=== PATIENT | male | born 1945 | race Caucasian/White ===

== ENCOUNTER 2019-09-17 14:02 | Emergency (ER) | payer MEDICARE, SELFPAY ==
[2019-09-17 14:08] VITALS: BP 153/75; PULSE 74; RESP 14; TEMP 36.4; O2SAT 95; BMI 25.0
--- NOTE | 2019-09-17 17:41 | W.ED.WOUNDLC ---
HPI - Wound/Laceration General: Chief Complaint: Wound/Laceration Stated Complaint: finger lac Time Seen by Provider: 09/17/19 17:08 History of Present Illness: HPI narrative: Patient reports easy using a cutting disc on a lens edge grinder machine and sustained a laceration to the dorsal aspect of his right hand overlying the MCP joint Onset (ago): minute(s) Location: other Extremity Location: Right: hand Place: home Patient tetanus UTD: No Context: accidental Associated symptoms: Reports no associated symptoms Treatments prior to arrival: bandage Review of Systems General: Reports: 10 or more systems reviewed and unremarkable except in HPI and below PFSH ED PFSH: Medical History Atrial fibrillation CHF (congestive heart failure) Family History Father Hypertension Social History Smoking and tobacco status: former smoker Physical Exam Const: COMMON NORMALS: no acute distress, patient oriented x3, no limitations and alert HENMT: COMMON NORMALS: normocephalic, atraumatic, external ears normal and Normal external nose present HEAD & SCALP: normocephalic and atraumatic FACE & SINUS: normal facial exam NOSE: Normal external nose present EXTERNAL EAR: Yes external ears normal MOUTH: Normal oral and palatal mucosa present Neck/C-Spine: COMMON NORMALS: full ROM, no lymphadenopathy, supple, no meningeal signs and no JVD GENERAL: Yes normal visual inspection Resp: COMMON NORMALS: normal respiratory effort, No retractions, No use of accessory muscles and clear to auscultation bilaterally AUSCULTATION: clear to auscultation bilaterally Cardio: COMMON NORMALS: no JVD, regular rate and regular rhythm RATE: regular rate RHYTHM: regular rhythm GI: COMMON NORMALS: Normal to inspection, nondistended, normoactive bowel sounds present, Soft to palpation, non-tender, No hepatosplenomegaly present and no masses INSPECTION: Yes normal to inspection AUSCULTATION: Yes normoactive bowel sounds PALPATION: Yes Soft to palpation and Yes No hepatosplenomegaly present PERCUSSION: normal to percussion : COMMON NORMALS: Yes no CVA tenderness BLADDER/KIDNEY EXAM: Yes no CVA tenderness Back/Pelvis: COMMON NORMALS: no CVA tenderness, thoracic and lumbar spine normal to inspection, no thoracic nor lumbar tenderness, thoraco-lumbar ROM normal and straight leg raise negative bilaterally Extremity: COMMON NORMALS: normal to inspection, full ROM, capillary refill normal, no joint enlargement, no clubbing, cyanosis or edema, no calf tenderness and no pedal edema Neuro: COMMON NORMALS: patient oriented x3, moves all extremities, no focal motor deficits and no sensory deficits noted SENSORIUM/ORIENTATION: Yes alert MENINGEAL SIGNS: Yes no meningeal signs Psych: COMMON NORMALS: mental status grossly normal, Normal thought process present, cooperative, normal affect and speech normal SPEECH: Yes normal speech THOUGHT PROCESS: Normal thought process present Skin: COMMON NORMALS: turgor normal, no jaundice, no petechiae and no mottling GENERAL SKIN EXAM: turgor normal TRAUMA: laceration (2.25 cm laceration overlying the MCP of the index finger of the right hand) Procedures Laceration Laceration 1: Site: hand Side (If applicable): right Size (cm): 2.25 Description: linear Depth: involves muscle layer and involves tendon Local Anesthetic: lidocaine 1% Pre-repair: wound explored and irrigated extensively Skin layer closed with: nylon Size (cm): 4-0 Number of sutures: 6 Technique: simple, interrupted Course Vital Signs: Vital signs: Vital Signs Temperature 97.6 F 09/17/19 14:08 Pulse Rate 74 09/17/19 14:08 Respiratory Rate 14 09/17/19 14:08 Blood Pressure 153/75 09/17/19 14:08 Pulse Oximetry 95 09/17/19 14:08 Discharge Plan Discharge Patient Disposition: Home Clinical Impression: Laceration of hand Qualifiers: Encounter type: initial encounter Foreign body presence: without foreign body Laterality: right Qualified Code(s): S61.411A - Laceration without foreign body of right hand, initial encounter Condition: Stable Prescriptions: New Keflex 250 mg capsule 250 mg PO QID 10 Days Qty: 40 RF: 0 hydrocodone-acetaminophen 5-325 mg tablet 1 tab PO Q4H PRN (Reason: pain) Qty: 15 RF: 0 No Action garlic 1,500 mg capsule 1,500 mg PO DAILY RF: 0 multivitamin Tablet 1 tab PO DAILY RF: 0 hawthorn 500 mg capsule PO RF: 0 cannabidiol 100 mg/mL solution PO PRNRF: 0 ascorbic acid (vitamin C) 500 mg capsule PO RF: 0 cholecalciferol (vitamin D3) 50 mcg (2,000 unit) capsule 2,000 unit PO DAILY RF: 0 hydrochlorothiazide 12.5 mg tablet 12.5 mg PO DAILY Qty: 30 RF: 3 diltiazem HCl 180 mg capsule,extended release 24hr 180 mg PO DAILY Qty: 90 RF: 3 digoxin 125 mcg (0.125 mg) tablet 125 mcg PO DAILY Qty: 90 RF: 3 Discharge Orders: Discharge Order (Routine); Ordered 09/17/19 Ordered By: Iraj Craven Referrals: Magaly Agee FNP [Primary Care Provider] - Patient Instructions: Laceration (ED), Finger Laceration (ED) Coding Level of Care Code ED 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
== END 2019-09-17 18:32 | disposition home or self-care (01) ==
PROVIDERS: Emergency Provider Family Medicine; PCP Nurse Practitioner
DX: S61.210A Laceration without foreign body of right index finger without damage to nail, initial encounter (principal); W26.8XXA Contact with other sharp object(s), not elsewhere classified, initial encounter; I48.91 Unspecified atrial fibrillation; I50.9 Heart failure, unspecified; Z87.891 Personal history of nicotine dependence
CPT/HCPCS: 12001; 12345; 99281; 99282

== ENCOUNTER 2019-11-02 12:24 | Outpatient (CLI) | payer MEDICARE, SELFPAY ==
--- NOTE | 2019-11-02 12:45 | USCV_ITS ---
Bud Corona Age: 74 Gender: M : 1945 Exam Date: 11/02/2019 13:03 Ordering Phys: Eden Costa MD ([email or web address]) Technologist: Edison Mercado Exam Location: [facility] – [place] Indication: AFIB/SOB BP: 130 / 75 HR: 68 Rhythm: Sinus Technical Quality: Adequate MEASUREMENTS (Male / Female) Normal Values 2D ECHO LV Diastolic Diameter PLAX 5.9 cm 4.2 - 5.9 / 3.9 - 5.3 cm LV Systolic Diameter PLAX 4.4 cm IVS Diastolic Thickness 0.8 cm 0.6 - 1.0 / 0.6 - 0.9 cm IVS Systolic Thickness 1.5 cm LVPW Diastolic Thickness 1.0 cm 0.6 - 1.0 / 0.6 - 0.9 cm LVPW Systolic Thickness 1.6 cm LVOT Diameter 2.1 cm LV Ejection Fraction 2D Teich 49.5 % LV Ejection Fraction MOD 2C 61.5 % LV Ejection Fraction 2C AL 60.7 % LA Diameter 4.0 cm LA Width 4.3 cm LA Height 6.1 cm RA Width 3.7 cm RA Height 5.9 cm Aorta at Sinotubular Diameter 1.1 cm M-MODE LV Diastolic Diameter MM 5.8 cm 4.2 - 5.9 / 3.9 - 5.3 cm LV Systolic Diameter MM 6.1 cm LV Ejection Fraction MM Teich -14.0 % IVS Diastolic Thickness MM 1.2 cm 0.6 - 1.0 / 0.6 - 0.9 cm IVS Systolic Thickness MM 0.9 cm LVPW Diastolic Thickness MM 1.3 cm 0.6 - 1.0 / 0.6 - 0.9 cm LVPW Systolic Thickness MM 1.3 cm RV Diastolic Diameter MM 1.6 cm Aortic Annulus Diameter 3.6 cm LA Ao Ratio MM 1.1 MV E Point Septal Separation 1.3 cm DOPPLER AV Peak Velocity 183.0 cm/s MV Area PHT 5.0 cm squared Mitral E to A Ratio 3.6 MV E' Velocity 9.0 cm/s Mitral E to MV E' Ratio 13.9 Mitral E to LV E' Lateral Ratio 11.3 Mitral E to LV E' Septal Ratio 17.9 TR Peak Velocity 274.0 cm/s TR Peak Gradient 30.0 mmHg TV Peak E Velocity 102.0 cm/s Right Atrial Pressure 3.0 mmHg Pulmonary Artery Systolic Pressu 33.0 mmHg PV Peak Velocity 66.0 cm/s FINDINGS Left Ventricle Moderately increased left ventricular cavity size. Moderately decreased left ventricular systolic function. Left ventricular ejection fraction is estimated at 40 %. Global left ventricular hypokinesis. Due to atrial fibrillation diastolic function cannot be assessed accurately. Right Ventricle The right ventricle is normal in size and function. Right Atrium The right atrium is normal in size. Left Atrium Moderately increased left atrial size. Mitral Valve Moderately thickened mitral valve. No mitral valve stenosis. Moderate mitral valve regurgitation. Aortic Valve Moderate aortic valve calcification. No aortic valve stenosis. Moderate to severe aortic valve regurgitation. Tricuspid Valve Structurally normal tricuspid valve without significant stenosis or regurgitation. Pulmonary artery systolic pressure is normal. Pulmonic Valve Trace pulmonary valve regurgitation. Pericardium Normal pericardium without effusion. Aorta Normal ascending aorta dimension. CONCLUSIONS 1-Moderately increased left ventricular cavity size. Moderately decreased left ventricular systolic function. Left ventricular ejection fraction is estimated at 40 %. Global left ventricular hypokinesis. Due to atrial fibrillation diastolic function cannot be assessed accurately. 2-Moderately increased left atrial size. 3-Moderately thickened mitral valve. No mitral valve stenosis. Moderate mitral valve regurgitation. 4-Moderate aortic valve calcification. No aortic valve stenosis. Moderate to severe aortic valve regurgitation. 5-There is no pericardial effusion. 6-Right atrial pressure is around 5 mm of mercury. 7-There are no prior echocardiogram studies to compare. Eden Costa MD (Electronically Signed) Final Date: 02 November 2019 18:47 S
== END 2019-11-02 12:25 | disposition home or self-care (01) ==
LOC: US 12:30
PROVIDERS: PCP Nurse Practitioner; Visit Provider Internal Medicine Cardiovascular Disease
DX: I48.11 Longstanding persistent atrial fibrillation (principal); R06.02 Shortness of breath; I08.0 Rheumatic disorders of both mitral and aortic valves
CPT/HCPCS: 93306

== ENCOUNTER 2020-07-18 16:36 | Inpatient (IN) | payer MEDICARE, SELFPAY ==
--- NOTE | 2020-07-18 16:42 | XRR_ITS ---
PROCEDURE INFORMATION: Exam: XR Chest Exam date and time: 07/18/2020 4:50 PM Age: 75 years old Clinical indication: Condition or disease; Other: High blood pressure; Additional info: SOB TECHNIQUE: Imaging protocol: XR of the chest. Views: 1 view. COMPARISON: CR Chest 1 [place] [id number] 05/15/2015 5:02 PM FINDINGS: Lungs: Single calcified pulmonary granuloma is present, consistent with prior granulomatous disease. Pleural spaces: Unremarkable. No pleural effusion. No pneumothorax. Heart/Mediastinum: There is mild cardiomegaly. Bones/joints: Unremarkable. XR/XR chest 1V portable [id number] IMPRESSION: Mild cardiomegaly.
--- NOTE | 2020-07-18 16:43 | ECG_ITS ---
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 Measurements Intervals [place] Rate: 68 P: NE: QRS: -50 QRSD: 116 T: 108 QT: 350 QTc: 374 Interpretive Statements ATRIAL FIBRILLATION INCOMPLETE RIGHT BUNDLE BRANCH BLOCK LEFT ANTERIOR FASCICULAR BLOCK [QRS AXIS <= -45, QR IN I, RS IN II] MODERATE VOLTAGE CRITERIA FOR LVH, CONSIDER NORMAL VARIANT POSSIBLE SEPTAL MYOCARDIAL INFARCTION , PROBABLY OLD Compared to ECG 05/15/2015 17:00:47 Incomplete right bundle-branch block now present Myocardial infarct finding now present Right ventricular hypertrophy no longer present ST (T wave) deviation no longer present Electronically Signed On 07-18-2020 18:28:47 CDT by Sabrina Graves M.D. [id number]
[2020-07-18 16:54] VITALS: BP 173/64; PULSE 72; RESP 18; TEMP 36.3; O2SAT 95; BMI 26.6
--- NOTE | 2020-07-18 16:58 | CTR_ITS ---
PROCEDURE INFORMATION: Exam: CT Head Without Contrast Exam date and time: 07/18/2020 5:07 PM Age: 75 years old Clinical indication: Other: Headache; Additional info: PEREZ TECHNIQUE: Imaging protocol: Computed tomography of the head without contrast. Radiation optimization: All CT scans at this facility use at least one of these dose optimization techniques: automated exposure control; mA and/or kV adjustment per patient size (includes targeted exams where dose is matched to clinical indication); or iterative reconstruction. Other technique: STROKE PROTOCOL was implemented. COMPARISON: MR head wo con* [id number] 08/30/2018 10:57 AM RADIATION DOSE METRICS: Total DLP (mGy-cm): 937.21 FINDINGS: Brain: There is mild parenchymal atrophy and chronic small vessel disease. No acute infarct or hemorrhage. Cerebral ventricles: No ventriculomegaly. Paranasal sinuses: Paranasal sinuses are clear. No air-fluid level. Mastoid air cells: Visualized mastoid air cells are clear. Bones/joints: Unremarkable. No acute fracture. Soft tissues: Unremarkable. CT/CT head wo con* [id number] IMPRESSION: 1. No acute infarct or hemorrhage. 2. Mild parenchymal atrophy and chronic small vessel disease. ASSESSMENT: ASPECTS ([place] Stroke Program Early CT Score) is 10. Radiation Dose CTDIVOL = (mGy): DLP = 937.21 (mGy-cm)
[2020-07-18] MEDS: piperacillin-tazobactam 3.375 GM in sodium chloride 0.9% (plus) 50 ML IV (17:10)
--- NOTE | 2020-07-18 17:10 | W.ED.GENADLT ---
HPI - General Adult General: Chief complaint: General Medical Stated complaint: HTN Time Seen by Provider: 07/18/20 16:59 Source: patient Mode of arrival: ambulatory Limitations: no limitations History of Present Illness: HPI narrative: 75-year-old male states that he woke up this morning at 8 AM just not feeling very well. He states that starting around noon he had difficulty walking and has had an ataxic gait since then. States he has had generalized weakness as well. He denies any chest pain. Denies any fevers. He does have a history of A. fib but does not take any blood thinners. Denies any vomiting or diarrhea. Associated symptoms: Deny chest pain, dyspnea, headache(s), nausea, rash or vomiting Review of Systems Const: Denies: fever(s), chills, body aches or change in appetite Eyes: Denies: blurry vision or eye discomfort ENMT: Denies: throat pain or dental pain Card: Denies: chest pain Resp: Denies: dyspnea GI: Denies: abdominal pain, nausea, vomiting or diarrhea : Denies: dysuria Musc: Denies: neck pain or back pain Skin/Breast: Denies: rash Neuro: Reports: difficulty walking; Denies: headache(s) Psych: Denies: depression Deny/Lymph: Denies: easy bruising All/Imm: Denies: urticaria PFS ED PFSH: Medical History (Updated 07/18/20 @ 20:28 by Saira Padilla MD) Atrial fibrillation CHF (congestive heart failure) Surgical History (Updated 07/18/20 @ 19:29 by Eden Grady MD) H/O carotid endarterectomy 2009 S/P hernia repair S/P PTCA (percutaneous transluminal coronary angioplasty) Family History (Updated 07/18/20 @ 19:30 by Eden Grady MD) Father Hypertension CAD (coronary artery disease) Social History (Updated 07/18/20 @ 19:30 by Eden Grady MD) Smoking and tobacco status: former smoker Alcohol intake: never Substance/Drug Use: never Housing: House Physical Exam Const: COMMON NORMALS: no acute distress, patient oriented x3 and healthy appearing HENMT: COMMON NORMALS: normocephalic and atraumatic HEAD & SCALP: normocephalic and atraumatic Eye: COMMON NORMALS: Equal, round and reactive pupils present and EOMs intact bilaterally PUPIL: Yes Equal, round and reactive pupils present Neck/C-Spine: COMMON NORMALS: full ROM and supple Chest: COMMONS NORMALS: normal inspection of the chest and normal palpation of entire chest wall Resp: COMMON NORMALS: normal respiratory effort, No retractions, No use of accessory muscles and clear to auscultation bilaterally AUSCULTATION: clear to auscultation bilaterally Cardio: COMMON NORMALS: regular rate, regular rhythm and No murmurs present (Cardio) RATE: regular rate RHYTHM: regular rhythm GI: COMMON NORMALS: Normal to inspection, nondistended, normoactive bowel sounds present, Soft to palpation, non-tender and no masses PALPATION: Yes Soft to palpation Extremity: COMMON NORMALS: normal to inspection and full ROM Neuro: COMMON NORMALS: patient oriented x3 and moves all extremities GAIT: Yes Ataxic gait present and Yes Shuffling gait present Psych: COMMON NORMALS: mental status grossly normal, Normal thought process present and cooperative THOUGHT PROCESS: Normal thought process present Skin: COMMON NORMALS: no rashes or lesions noted and no wounds GENERAL SKIN EXAM: no rashes or lesions noted Course Vital Signs: Vital signs: Vital Signs Temperature 97.3 F L 07/18/20 16:54 Pulse Rate 81 07/18/20 19:34 Respiratory Rate 19 H 07/18/20 19:34 Blood Pressure 163/89 07/18/20 20:19 Pulse Oximetry 97 07/18/20 20:19 MDM - General Adult MDM Narrative: Medical decision making narrative: Patient presents here with ataxia and concern for possible posterior stroke. After speaking to his and him last known normal was around noon and patient is out of any treatment window for TPA. His head CT here is normal. He adamantly refuses to take any blood thinners besides aspirin. I spoke to hospitalist will admit. Lab Data: Labs: Lab Results 07/18/20 07/18/20 07/18/20 Range/Units 17:39 17:44 17:44 WBC 6.1 (4.0-10.0) 10^3/ uL RBC 5.54 H (4.1-5.3) 10^6/u L Hgb 16.1 (11.7-16.6) g/dL Hct 49.2 (42.0-52.0) % MCV 88.8 (80-94) fL MCH 29.1 (28.0-34.0) pg MCHC 32.7 (30.0-36.0) g/dL RDW 15.0 (12.1-15.1) % Plt Count 140 (130-400) 10^3/c mm MPV 12.6 H (7.4-10.4) fL Neut % (Auto) 82.2 % Lymph % (Auto) 9.2 % [place] % (Auto) 7.9 % Eos % (Auto) 0.2 % Baso % (Auto) 0.2 % Neut # (Auto) 4.98 (1.8-7.7) 10^3/u L Lymph # (Auto) 0.6 L (0.8-4.8) 10^3/u L [place] # (Auto) 0.5 (0.2-0.9) 10^3/u L Eos # (Auto) 0.0 (0.0-0.8) 10^3/u L Baso # (Auto) 0.0 (0.0-0.1) 10^3/u L Nucleated RBC % (a uto) 0 % Nucleated RBCs # 0.0 /100WBC PT (12.1-14.9) SECO NDS INR (0.8-1.2) Sodium 138 (136-145) mmol/L Potassium 4.0 (3.5-5.1) mmol/L Chloride 101 (98-107) mmol/L Carbon Dioxide 27 (22-29) mmol/L Anion Gap 14.0 (5-19) BUN 12 (8-23) mg/dL Creatinine 1.0 (0.7-1.2) mg/dL GFR Calculation Not Reportable Glucose 97 (65-115) mg/dL POC Glucose 102 (70-110) mg/dL Calculated Osmolal ity 286 (285-295) mOsm/k g Calcium 9.1 (8.5-10.5) mg/dL Total Bilirubin 0.9 (0.15-1.2) mg/dL AST 25 (0-40) U/L ALT 18 (0-41) U/L Alkaline Phosphata se 65 (40-130) IU/L Troponin T Baselin e (0-15) ng/L NT-Pro-B Natriuret Pep 824 H (0-450) pg/mL Total Protein 6.7 (6.6-8.7) g/dL Albumin 4.3 (3.5-5.2) g/dL Globulin 2.4 (1.3-4.6) g/dL 07/18/20 07/18/20 Range/Units 17:44 18:40 WBC (4.0-10.0) 10^3/ uL RBC (4.1-5.3) 10^6/u L Hgb (11.7-16.6) g/dL Hct (42.0-52.0) % MCV (80-94) fL MCH (28.0-34.0) pg MCHC (30.0-36.0) g/dL RDW (12.1-15.1) % Plt Count (130-400) 10^3/c mm MPV (7.4-10.4) fL Neut % (Auto) % Lymph % (Auto) % [place] % (Auto) % Eos % (Auto) % Baso % (Auto) % Neut # (Auto) (1.8-7.7) 10^3/u L Lymph # (Auto) (0.8-4.8) 10^3/u L [place] # (Auto) (0.2-0.9) 10^3/u L Eos # (Auto) (0.0-0.8) 10^3/u L Baso # (Auto) (0.0-0.1) 10^3/u L Nucleated RBC % (a uto) % Nucleated RBCs # /100WBC PT 14.90 (12.1-14.9) SECO NDS INR 1.14 (0.8-1.2) Sodium (136-145) mmol/L Potassium (3.5-5.1) mmol/L Chloride (98-107) mmol/L Carbon Dioxide (22-29) mmol/L Anion Gap (5-19) BUN (8-23) mg/dL Creatinine (0.7-1.2) mg/dL GFR Calculation Glucose (65-115) mg/dL POC Glucose (70-110) mg/dL Calculated Osmolal ity (285-295) mOsm/k g Calcium (8.5-10.5) mg/dL Total Bilirubin (0.15-1.2) mg/dL AST (0-40) U/L ALT (0-41) U/L Alkaline Phosphata se (40-130) IU/L Troponin T Baselin e 17 H (0-15) ng/L NT-Pro-B Natriuret Pep (0-450) pg/mL Total Protein (6.6-8.7) g/dL Albumin (3.5-5.2) g/dL Globulin (1.3-4.6) g/dL EKG Data^: EKG 1: Attestation: I personally reviewed and interpreted this EKG as follows: EKG interpretation date: 07/18/20 EKG interpretation time: 17:32 Computer generated interpretation: Chest X-Ray 07/18/20 16:42 IMPRESSION: Mild cardiomegaly. Head CT 07/18/20 16:58 IMPRESSION: 1. No acute infarct or hemorrhage. 2. Mild parenchymal atrophy and chronic small vessel disease. ASSESSMENT: ASPECTS ([place] Stroke Program Early CT Score) is 10. Radiation Dose CTDIVOL = (mGy): DLP = 937.21 (mGy-cm) afib hr [address] or t wave abnormalities qrs 116 qtc 367 Discharge Plan Discharge Patient Disposition: Admitted As Inpatient Admit Provider: Eden Grady Clinical Impression: Atrial fibrillation, Ataxia Condition: Stable Coding Level of Care Code ED Guest Relations Manager for g Fwd Exam Comprehensive NIH stroke score NIHSS Level Of Consciousness - 1a: 0 Level Of Consciousness Questions - 1b: Both Correct Level Of Consciousness Commands - 1c: Both Correct Best Gaze - 2: Normal Visual Redd - 3: No Visual Loss Facial Palsy - 4: Normal Motor Arm Right - 5: No Drift Motor Arm Left - 5: No Drift Motor Leg Right - 6: No Drift Motor Leg Left - 6: No Drift Limb Ataxia - 7: Present In One Limb Sensory - 8: Normal Best Language - 9: No Aphasia Dysarthia - 10: Normal Extinction And Inattention - 11: 0 Score Total Score: 1
[2020-07-18 17:43] LABS: Glucose Point of Care 102 mg/dL (70-110)
[2020-07-18 18:02] LABS: Basophils % 0.2 %; Eosinophils % 0.2 %; Hematocrit 49.2 % (42.0-52.0); Hemoglobin 16.1 g/dL (11.7-16.6); Lymphocytes # 0.6 10^3/uL (0.8-4.8); Lymphocytes % 9.2 %; Mean Corpuscular HGB Conc 32.7 g/dL (30.0-36.0); Mean Corpuscular Hemoglobin 29.1 pg (28.0-34.0); Mean Corpuscular Volume 88.8 fL (80-94); Mean Platelet Volume 12.6 fL (7.4-10.4); Monocytes # 0.5 10^3/uL (0.2-0.9); Monocytes % 7.9 %; Neutrophils # 4.98 10^3/uL (1.8-7.7); Neutrophils % 82.2 %; Nucleated Red Blood Cells % 0 %; Platelet Count 140 10^3/cmm (130-400); Red Blood Count 5.54 10^6/uL (4.1-5.3); White Blood Count 6.1 10^3/uL (4.0-10.0)
[2020-07-18] MEDS: aspirin 81 mg Chew Tablet 324 MG PO (18:08)
--- NOTE | 2020-07-18 18:43 | ECG_ITS ---
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 Measurements Intervals [place] Rate: 83 P: NV: QRS: -48 QRSD: 114 T: 129 QT: 371 QTc: 437 Interpretive Statements ATRIAL FIBRILLATION INCOMPLETE RIGHT BUNDLE BRANCH BLOCK LEFT ANTERIOR FASCICULAR BLOCK [QRS AXIS <= -45, QR IN I, RS IN II] SEPTAL MYOCARDIAL INFARCTION , PROBABLY OLD [40+ ms Q WAVE IN V1/V2] MODERATE T-WAVE ABNORMALITY, CONSIDER LATERAL ISCHEMIA Compared to ECG 07/18/2020 17:32:52 T-wave abnormality now present Possible ischemia now present Myocardial infarct finding still present Electronically Signed On 07-20-2020 9:55:55 CDT by Sabrina Graves M.D. [id number]
[2020-07-18 18:45] LABS: Troponin(5th) Baseline 17 ng/L (0-15)
[2020-07-18 18:53] LABS: Alanine Aminotransferase 18 U/L (0-41); Albumin Level 4.3 g/dL (3.5-5.2); Alkaline Phosphatase 65 IU/L (40-130); Aspartate Amino Transferase 25 U/L (0-40); Blood Urea Nitrogen 12 mg/dL (8-23); Calcium 9.1 mg/dL (8.5-10.5); Carbon Dioxide 27 mmol/L (22-29); Chloride 101 mmol/L (98-107); Globulin 2.4 g/dL (1.3-4.6); Glucose 97 mg/dL (65-115); NT Pro B Type Natriuretic Pept 824 pg/mL (0-450); Osmolality Calculated 286 mOsm/kg (285-295); Sodium 138 mmol/L (136-145); Total Bilirubin 0.9 mg/dL (0.15-1.2); Total Protein 6.7 g/dL (6.6-8.7)
[2020-07-18 19:02] LABS: INR 1.14 (0.8-1.2)
--- NOTE | 2020-07-18 19:27 | P.HP_ITS ---
Providers/Chief Complaint Primary Care Provider: DONAVAN Casiano Chief Complaint: High BP, CHF Related History of Present Illness Bud Corona is a 75 year old male with chronic history of hypertension, atrial fibrillation( does not want to use any kind of anticoagulation because of his firm belief against medications) presented today with chief complaint of generalized weakness and ataxia. is at the bedside who is endorsing that when Mr. Corona woke up this morning he was not feeling well he was complaining of generalized weakness, and was experiencing some tremors, around noon his symptoms worsened and he was holding his left arm with his right hand, his dominant arm is left. When she checked his blood pressure, systolic bp was fluctuating between 1 50-1 90smmhg, she decided to bring him to the hospital because of worsening of hypertension. In the ER parking lot he was not able to move his left leg,& was feeling weak. His NIH score was 1 because of ataxia, [facility] neurologist did not recommend TPA or CTA head and neck because of low NIH score, however recommended MRI in the morning. 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 however no weakness noticed of left arm or left leg, he received loading dose of aspirin, I am not sure why he was given broad-spectrum antibiotics in the ER Review of Systems Const: Denies: fever(s) Eyes: Denies: change in vision ENMT: Denies: throat pain Card: Denies: chest pain Resp: Denies: dyspnea GI: Denies: abdominal pain : Denies: flank pain Musc: Reports: joint pain and muscle cramps Skin/Breast: Denies: lesions Neuro: Reports: weakness in extremities and difficulty walking Psych: Reports: irritability and memory loss; Denies: anxiety Endo: Denies: polyuria Deny/Lymph: Denies: easy bruising All/Imm: Denies: urticaria Medications/Allergies Home Medications Medication Instructions Recorded Confirmed Last Taken Type cannabidiol 100 mg/mL oral solution PO PRN 05/16/19 11/20/19 Unknown History garlic 1,500 mg capsule 1,500 mg PO DAILY 05/16/19 11/20/19 Unknown History hawthorn 500 mg capsule mg PO 05/16/19 11/20/19 Unknown History multivitamin 1 tab PO DAILY 05/16/19 11/20/19 Unknown History ascorbic acid (vitamin C) 500 mg mg PO 09/11/19 11/20/19 Unknown History capsule cholecalciferol (vitamin D3) 50 2,000 unit PO DAILY cap 09/11/19 11/20/19 Unknown History mcg (2,000 unit) capsule digoxin 125 mcg (0.125 mg) tablet 125 mcg PO DAILY #90 tab 09/11/19 11/20/19 Unknown Rx diltiazem HCl 180 mg 180 mg PO DAILY #90 cap 09/11/19 11/20/19 Unknown Rx capsule,extended release 24 hr hydrocodone-acetaminophen 1 tab PO Q4H PRN #15 tab 09/17/19 11/20/19 Unknown Rx hydrochlorothiazide 12.5 mg tablet 12.5 mg PO DAILY #30 tab 05/03/20 Unknown Rx Allergies Allergy/AdvReac Type Severity Reaction Status Date / Time No Known Allergies Allergy Verified 11/20/19 13:21 PFSH Acute PFSH: Medical History Atrial fibrillation CHF (congestive heart failure) Surgical History H/O carotid endarterectomy 2009 S/P hernia repair S/P PTCA (percutaneous transluminal coronary angioplasty) Family History Father Hypertension CAD (coronary artery disease) Social History Smoking and tobacco status: former smoker Alcohol intake: never Substance/Drug Use: never Housing: House Vitals/I&O/Wt Last Vital Signs Temp 97.3 F L 07/18/20 16:54 Pulse 72 07/18/20 16:54 Resp 18 07/18/20 16:54 BP 173/64 07/18/20 16:54 Pulse Ox 95 07/18/20 16:54 Weight last 48 hrs Weight 74.843 kg Physical Exam 2 Narrative: EXAM NARRATIVE: Pleasant cooperative male who appears stated age Was laying comfortably in his bed, at the bedside Systolic blood pressure 163 mmHg he is afebrile NIH 0 No cerebellar signs Bilateral mild ptosis noticed Asymmetrical pupils, No focal deficit, no facial asymmetry Patient is awake alert oriented x3 GCS 15 S1, S2 variable without tachyarrhythmia Abdomen soft Low symmetry no edema gangrene or ulcer No acute respiratory distress Appropriate mood and affect Data : 07/18/20 17:44 07/18/20 17:44 A&P Assessment and plan (1) Atrial fibrillation: Status: Acute Qualifiers: Atrial fibrillation type: longstanding persistent Qualified Code(s): I48.11 - Longstanding persistent atrial fibrillation (2) Labile essential hypertension: Status: Acute (3) TIA (transient ischemic attack): Status: Acute (4) Ataxia: Status: Acute Additional A&P Information TIA Patient experienced left-sided weakness and ataxia, NIH 0, not a TPA candidate, roughly symptoms started around noon, CT head unremarkable we will get head MRI in the morning Start aspirin Plavix along high-dose statins Permissive hypertension Previous history of carotid endarterectomy We do not need OT/speech evaluation however will request PT evaluation before discharge He has history of A. fib, does not want to use anticoagulation however agreeable to aspirin Asymmetrical pupils are secondary to cataract and glaucoma surgeries, however as per the bilateral ptosis of the eyelid is getting worse, no recent aspiration on food, no previous history of myasthenia gravis Check A1c level and lipid profile A. fib without RVR Check digoxin level Continue diltiazem Patient agreeable to use of aspirin and Plavix but does not want to use any anticoagulating agent Follows up with Dr. Raya Cardiac diet DVT prophylaxis Lovenox Full code Attestations Medical Necessity Statement*: Anticipating discharge within 48 hours will need work-up for TIA Time Spent in Patient Care: 30mins Coding Level of Care Code Acute Asic Design Engineer for Chg Fwd Diagnoses Atrial fibrillation I48.11 Atrial fibrillation type: longstanding persistent Labile essential hypertension I10 TIA (transient ischemic attack) G45.9 Ataxia R27.0
[2020-07-18 19:34] VITALS: BP 145/52; PULSE 81; RESP 19; O2SAT 96
[2020-07-18 20:19] VITALS: BP 163/89; O2SAT 97
[2020-07-18 20:24] LABS: Add Urine Microscopic? NO; Charge for UA Resulting for Rev
[2020-07-18 20:32] LABS: Bilirubin Urine Neg (Negative); Blood Urine Neg (Negative); Glucose Urine UA Norm (Normal); Ketones Urine Negative (Negative); Leukocyte Esterase Urine Negative (Negative); Nitrate Urine Negative (Negative); Protein Urine Neg (Negative); Specific Gravity, Urine 1.015 (1.005-1.030); Urine Appearance Clear (CLEAR); Urine Color Yellow (Yellow); Urobilinogen Urine Norm (Negative); pH Urine 6 (5-7)
[2020-07-18 20:48] VITALS: BP 150/80; PULSE 93; RESP 18; TEMP 36.7; O2SAT 95
[2020-07-18] MEDS: atorvastatin 40 mg Tablet 80 MG PO (21:08)
[2020-07-18] MEDS: enoxaparin 40 mg/0.4 mL Syringe SUBCUT (21:09)
[2020-07-18 21:57] LABS: Troponin 5 2HR 12.16 ng/L (0-15)
[2020-07-18 22:05] LABS: Estmated Average Glucose 111; Hemoglobin A1C 5.5 % (4.0-6.0); Troponin 5 2HR Delta -4.84 ABS# (0-10)
[2020-07-18 22:17] LABS: Chol HDL Ratio 3.69 mg/dL (1.0-5.00); Cholesterol 177 mg/dL (0-200); Digoxin 0.9 ng/mL (0.6-1.2); HDL Cholesterol 48 mg/dL (60-100); LDL Cholesterol Calculated 107 mg/dL (50-129); LDL HDL Ratio 2.23 RATIO (0.00-3.22); Triglycerides 110 mg/dL (0-150)
--- NOTE | 2020-07-18 22:43 | ECG_ITS ---
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 Measurements Intervals [place] Rate: 80 P: VA: QRS: -55 QRSD: 115 T: 93 QT: 347 QTc: 400 Interpretive Statements ATRIAL FIBRILLATION INCOMPLETE RIGHT BUNDLE BRANCH BLOCK LEFT ANTERIOR FASCICULAR BLOCK MODERATE VOLTAGE CRITERIA FOR LVH, CONSIDER NORMAL VARIANT NONSPECIFIC ST & T-WAVE ABNORMALITY Compared to ECG 07/18/2020 19:14:33 Right ventricular hypertrophy now present Myocardial infarct finding no longer present Possible ischemia no longer present T-wave abnormality still present Electronically Signed On 07-20-2020 9:54:11 CDT by Sabrina Graves M.D. [id number]
[2020-07-18 23:54] LABS: Troponin 5 6HR 14.79 ng/L (0-15)
[2020-07-18 23:55] LABS: Troponin 5 6HR Delta -2.21 ng/L (0-12)
[2020-07-19] VITALS (9 sets, daily range): BP systolic 115–162; BP diastolic 53–82; PULSE 70–100; RESP 16–18; TEMP 37.2–39.4; O2SAT 91–100
[2020-07-19] MEDS: clopidogrel 75 mg Tablet PO (09:31)
[2020-07-19] MEDS: dilTIAZem ER (24HR) 180 mg Capsule PO (09:31)
[2020-07-19] MEDS: digoxin 125 mcg Tablet PO (09:31)
[2020-07-19] MEDS: aspirin 81 mg EC Tablet PO (09:31)
[2020-07-19 09:54] LABS: Procalcitonin 0.27 ng/mL (0-0.5)
--- NOTE | 2020-07-19 10:15 | MR_ITS ---
WS: [id number] MRI BRAIN WITHOUT CONTRAST HISTORY: Ataxia COMPARISON: 07/18/2020 TECHNIQUE: Diffusion imaging, multiplanar T1, T2 and FLAIR imaging obtained. No evidence for acute infarct or hemorrhage. Heck-white matter differentiation is normal. Mild progression of chronic microvascular ischemic type changes in the periventricular white matter s henry the prior study. Prominent CSF around the chance, greatest on the LEFT is similar to the prior kam dy. There is some very mild mixed signal intensity seen on all sequences but this is probably due to motion. Again very similar appearance to the prior study. Ventricles and extra-axial spaces are normal. No inferior displacement of cerebellar tonsils. The sella turcica and pituitary gland are unremarkabl e. Posterior fossa is also unremarkable. Dural venous sinuses and [place] of [place] demonstrate no abnormality on this unenhanced studies. Paranasal sinuses: Clear. Mastoid air cells: Normal. Calvarium and scalp: Intact. MR/MR head wo con* [id number] IMPRESSION: 1. No acute infarct. 2. Moderate to severe chronic microvascular ischemic changes with mild progres shannan since 08/30/2018. 3. Asymmetric appearance to the LEFT cerebellopontine angle is similar to the prior study. No definite signal abnormalities. If symptoms persist consider rep eating MRI in 4-6 weeks with contrast.
--- NOTE | 2020-07-19 11:29 | USCV_ITS ---
Bud Corona Age: 75 Gender: M : 1945 Exam Date: 07/19/2020 15:04 Ordering Phys: Bryan Dumont MD Technologist: Lurdes Whitt [place] [facility] [place] Indication: TIA BP: 112 / 72 HR: 77 Rhythm: Other Technical Quality: Adequate MEASUREMENTS (Male / Female) Normal Values 2D ECHO LV Diastolic Diameter PLAX 4.8 cm 4.2 - 5.9 / 3.9 - 5.3 cm LV Systolic Diameter PLAX 3.3 cm IVS Diastolic Thickness 1.4 cm 0.6 - 1.0 / 0.6 - 0.9 cm IVS Systolic Thickness 2.0 cm LVPW Diastolic Thickness 1.5 cm 0.6 - 1.0 / 0.6 - 0.9 cm LVPW Systolic Thickness 2.0 cm LVOT Diameter 2.0 cm LV Ejection Fraction 2D Teich 59.3 % LV Ejection Fraction MOD 2C 61.8 % LV Ejection Fraction 2C AL 59.3 % LA Diameter 4.3 cm LA Width 4.1 cm LA Height 5.4 cm RA Width 4.7 cm RA Height 6.0 cm Aorta at Sinotubular Diameter 2.3 cm M-MODE LV Diastolic Diameter MM 4.3 cm 4.2 - 5.9 / 3.9 - 5.3 cm LV Systolic Diameter MM 2.9 cm LV Ejection Fraction MM Teich 59.9 % IVS Diastolic Thickness MM 1.4 cm 0.6 - 1.0 / 0.6 - 0.9 cm IVS Systolic Thickness MM 1.9 cm LVPW Diastolic Thickness MM 1.1 cm 0.6 - 1.0 / 0.6 - 0.9 cm LVPW Systolic Thickness MM 1.3 cm Aortic Annulus Diameter 3.3 cm LA Ao Ratio MM 1.3 MV E Point Septal Separation 0.5 cm DOPPLER AV Peak Velocity 136.0 cm/s LVOT Peak Velocity 80.0 cm/s AV Area Cont Eq vti 1.8 cm squared AV Area Cont Eq pk 1.8 cm squared MV Peak Velocity 149.0 cm/s MV Area PHT 9.2 cm squared Mitral E to A Ratio 2.5 MV E' Velocity 48.0 cm/s Mitral E to MV E' Ratio 6.0 Mitral E to LV E' Lateral Ratio 4.7 Mitral E to LV E' Septal Ratio 8.4 TR Peak Velocity 187.9 cm/s TR Peak Gradient 14.1 mmHg TR Mean Velocity 161.4 cm/s TR Mean Gradient 10.9 mmHg TR Velocity Time Integral 47.7 cm Right Atrial Pressure 3.0 mmHg Pulmonary Artery Systolic Pressu 17.1 mmHg PV Peak Velocity 80.0 cm/s RV Acceleration Time 0.0 s RV Ejection Time 0.2 s RV AcT/ET 0.1 FINDINGS Left Ventricle Normal left ventricular size. LV systolic function is normal with EF of 50-55%. No regional wall motion abnormalities. Diastolic function is indeterminate because of atrial fibrillation Right Ventricle The right ventricle is normal in size and function. Right Atrium The right atrium is enlarged Left Atrium The left atrium is dilated Mitral Valve Thickened mitral valve without significant stenosis or prolapse. There is mild mitral regurgitation. Aortic Valve Moderately thickened and calcified. No significant aortic stenosis. There is moderate to severe aortic regurgitation. Tricuspid Valve Structurally normal tricuspid valve without significant stenosis or regurgitation. Insufficient TR jet to calculate RVSP Pulmonic Valve Structurally normal pulmonic valve without significant stenosis. There is no pulmonic regurgitation. Pericardium Normal pericardium without effusion. Aorta Normal ascending aorta dimension. CONCLUSIONS LV systolic function is normal with EF of 50-55% Diastolic function is indeterminate because of atrial fibrillation Moderate to severe aortic regurgitation Mild mitral regurgitation Compared to prior echocardiogram from 11/02/2019, LV systolic function appears to have improved. Mauricio Carrera MD (Electronically Signed) Final Date: 20 Jul 2020 20:09 S
--- NOTE | 2020-07-19 12:58 | PC.CHAP ---
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 fund manager visit [] Patient/Family/Request visit [] Outpatient visit [] Follow-up visit [] Physician referral [] Code/Alert [xx] Routine visit [] Staff referral [] Actively dying [] Patient sleeping [] Family support [] [] Out of room [] Palliative care [] [] Receiving care in room [] Pre-surgical visit [] Trauma [] Long length of stay [] ICU visit [] Other: Relational/Emotional Strength [xx] Patient feels connected with others/family/visitors/staff [] Distress [] Loneliness/isolation [] Abandonment Spirituality of Patient [] Person of Kristina [] Attends Mosque of their Kristina [] Believes in Prayer [] Reads Bible or Orthodox materials [] There are Spiritual issues to be addressed Photograph Editor Interventions [] Prayer [xx] Active listening [xx] Non-anxious presence [] Spiritual/emotional support [] Crisis/trauma care [] Spiritual counseling [] Bereavement support [] Provided bereavement packet [] Provided Bible/devotional materials [] Provided toy/stuffed animal, coloring book to patient or family member [] Provided Communion [] Anointing/[place] [] Salvation [xx] Completed spiritual assessment [] Other: Impact on Illness or Injury [] Angry [] Fearful [] Anxious [] Often cries [] Exhaustion [] Unable to work [] Unable to attend jewish [] Unable to walk/stand [] Unable to read [] Unable to drive [] Unable to eat/drink [] Unable to sleep [] Unable to be with family [] Patient intubated [] Other: Summary Patient and declined prayer as they are of a different kristina. They did converse some. Patient stated he is feeling lousy. Spouse stated he is in and out of sleep and mostly sleeps. Time spent with patient 3 minutes
[2020-07-19] MEDS: acetaminophen 325 mg Tablet 650 MG PO ×2 (14:47→19:54)
[2020-07-19] MEDS: vancomycin 1,000 MG in sodium chloride 0.9% 250 ML 250 MG IV (17:00)
[2020-07-19] MEDS: piperacillin-tazobactam 3.375 GM in sodium chloride 0.9% (plus) 50 ML IV (17:56)
--- NOTE | 2020-07-19 19:19 | PM.PN ---
Subjective Subjective: Interval history: Patient was seen and examined this morning, no gross motor weakness noted, no gross sensory loss noted, patient worked with PT, exhibit gait imbalance. Patient denied any chest pain shortness of breath, cough, diarrhea. Patient was spiking temperature T-max noted to be: 102.6 Vitals/I&O/Wt Last Vital Signs Temp 101.5 F H 07/19/20 16:00 Pulse 77 07/19/20 16:00 Resp 16 07/19/20 16:00 BP 158/82 07/19/20 16:00 Pulse Ox 95 07/19/20 16:00 07/19/20 07/19/20 07/19/20 06:59 14:59 22:59 Intake Total 500 / 500 490 / 990 Balance 500 / 500 490 / 990 Weight last 48 hrs Weight 74.843 kg Physical Exam Const: COMMON NORMALS: patient oriented x3 HENMT: COMMON NORMALS: normocephalic and atraumatic HEAD & SCALP: normocephalic and atraumatic Resp: COMMON NORMALS: clear to auscultation bilaterally EFFORT & INSPECTION: Yes symmetric chest movement AUSCULTATION: clear to auscultation bilaterally Cardio: COMMON NORMALS: regular rate, regular rhythm, S1 normal heart sound present, S2 normal heart sound present, No gallops present (Cardio), No murmurs present (Cardio), No rub (Cardio) and Peripheral pulses 2+ throughout RATE: regular rate RHYTHM: regular rhythm HEART SOUNDS: S1 normal heart sound present and S2 normal heart sound present PERIPHERAL PULSES: Peripheral pulses 2+ throughout GI: COMMON NORMALS: Normal to inspection, nondistended, normoactive bowel sounds present, Soft to palpation, non-tender, No hepatosplenomegaly present and no masses AUSCULTATION: Yes normoactive bowel sounds PALPATION: Yes Soft to palpation and Yes No hepatosplenomegaly present RECTAL EXAM: Yes deferred Extremity: COMMON NORMALS: no clubbing, cyanosis or edema and no pedal edema Neuro: COMMON NORMALS: patient oriented x3 Data : 07/18/20 17:44 07/18/20 17:44 Micro: Microbiology 07/19/20 09:10 Blood Culture - Preliminary Blood SPECIMEN COLLECTED 07/19/20 09:16 Blood Culture - Preliminary Blood SPECIMEN COLLECTED A&P Assessment and plan (1) SIRS (systemic inflammatory response syndrome): SIRS R/O Sepsis Blood culture Urine culture Lactic acid: 2 Procalcitonin: 0.27 X-ray chest: No infiltrate, no effusion, Single calcified pulmonary granuloma is present, consistent with prior granulomatous disease. 2D echo: Vancomycin Zosyn Status: Acute (2) Atrial fibrillation: Currently rate controlled: Continue diltiazem CD 180 MG p.o. daily Digoxin 125 mcg p.o. daily Patient has denied anticoagulation. Patient qualify for anticoagulation as per his [id number] score. Status: Acute (3) Labile essential hypertension: Status: Acute (4) TIA (transient ischemic attack): CT head without contrast: No acute intracranial pathology MRI brain without contrast: No acute infarct. Moderate to severe chronic microvascular ischemic changes with mild progression since 08/30/2018. Asymmetric appearance to the LEFT cerebellopontine angle is similar to the prior study. No definite signal abnormalities. If symptoms persist consider repeating MRI in 4-6 weeks with contrast. Aspirin 81 mg p.o. daily Atorvastatin 80 mg p.o. daily Plavix 75 mg p.o. daily Status: Acute (5) Ataxia: Follow B12, folic acid, TSH Status: Acute Additional A&P Information TIA Patient experienced left-sided weakness and ataxia, NIH 0, not a TPA candidate, roughly symptoms started around noon, CT head unremarkable we will get head MRI in the morning Start aspirin Plavix along high-dose statins Permissive hypertension Previous history of carotid endarterectomy We do not need OT/speech evaluation however will request PT evaluation before discharge He has history of A. fib, does not want to use anticoagulation however agreeable to aspirin Asymmetrical pupils are secondary to cataract and glaucoma surgeries, however as per the bilateral ptosis of the eyelid is getting worse, no recent aspiration on food, no previous history of myasthenia gravis Check A1c level and lipid profile A. fib without RVR Check digoxin level Continue diltiazem Patient agreeable to use of aspirin and Plavix but does not want to use any anticoagulating agent Follows up with Dr. Raya Cardiac diet DVT prophylaxis Lovenox Full code Attestations Medical Necessity Statement*: Patient needs to be in hospital for management of SIRS rule out sepsis. Coding Level of Care Code Acute Voice Coach for [facility] Fw Diagnoses SIRS (systemic inflammatory response syndrome) R65.10 Atrial fibrillation I48.91 Labile essential hypertension I10 TIA (transient ischemic attack) G45.9 Ataxia R27.0
[2020-07-19] MEDS: atorvastatin 40 mg Tablet 80 MG PO (21:32)
[2020-07-19] MEDS: enoxaparin 40 mg/0.4 mL Syringe SUBCUT (21:32)
[2020-07-20] VITALS (9 sets, daily range): BP systolic 135–157; BP diastolic 61–80; PULSE 76–101; RESP 16–18; TEMP 36.9–39.4; O2SAT 90–95
[2020-07-20] MEDS: piperacillin-tazobactam 3.375 GM in sodium chloride 0.9% (plus) 50 ML IV ×3 (01:06→16:46)
[2020-07-20 07:07] LABS: Basophils % 0.2 %; Hematocrit 44.9 % (42.0-52.0); Hemoglobin 14.8 g/dL (11.7-16.6); Lymphocytes # 0.4 10^3/uL (0.8-4.8); Mean Corpuscular Hemoglobin 29.1 pg (28.0-34.0); Mean Corpuscular Volume 88.4 fL (80-94); Mean Platelet Volume 13.7 fL (7.4-10.4); Monocytes # 0.2 10^3/uL (0.2-0.9); Neutrophils # 4.46 10^3/uL (1.8-7.7); Neutrophils % 89.4 %; Nucleated Red Blood Cells % 0 %; Platelet Count 80 10^3/cmm (130-400); Red Blood Count 5.08 10^6/uL (4.1-5.3); Red Cell Distribution Width 14.9 % (12.1-15.1)
[2020-07-20 07:40] LABS: Anion Gap 14.8 (5-19); Blood Urea Nitrogen 19 mg/dL (8-23); Calcium 7.8 mg/dL (8.5-10.5); Carbon Dioxide 24 mmol/L (22-29); Chloride 102 mmol/L (98-107); Glucose 122 mg/dL (65-115); Osmolality Calculated 288 mOsm/kg (285-295); Potassium 3.8 mmol/L (3.5-5.1); Sodium 137 mmol/L (136-145); Vitamin B12 457 pg/mL (232-1245)
[2020-07-20 07:42] LABS: Folate Level 13.7 ng/mL (4.5-32.2)
[2020-07-20] MEDS: acetaminophen 325 mg Tablet 650 MG PO ×2 (08:26→21:00)
[2020-07-20] MEDS: aspirin 81 mg EC Tablet PO (08:26)
[2020-07-20] MEDS: digoxin 125 mcg Tablet PO (08:26)
[2020-07-20] MEDS: dilTIAZem ER (24HR) 180 mg Capsule PO (08:26)
[2020-07-20] MEDS: clopidogrel 75 mg Tablet PO (08:27)
--- NOTE | 2020-07-20 09:10 | PC.NURSE ---
Patient's at bedside refused to allow this nurse to complete a COVIID Swab on patient at this time. Patient states, I am not going to let you stab him in the brain. Explained to patient's that I have done several of the tests and that I would be as gentle as I could. is does not want the test done. Dr. Dumont notified.
[2020-07-20 09:19] LABS: Slide Review Slide Review Perform
[2020-07-20 10:04] LABS: Influenza A by IFA Negative (Negative); Influenza B by IFA Negative (Negative)
--- NOTE | 2020-07-20 10:45 | PC.NURSE ---
Dr. Dumont spoke to patient's and she wanted to talk with the rest of her family about allowing the COVIID test. In room at this time to check and see if patient and family have made up their minds about the COVIID test. Patient's states, I have and we do not want him to have it and he does not want it. It would not change anything anyway as far as his treatment and all of us would have already been exposed. I would rather you test him for tick fever he has pulled off a lot of ticks this year already. Dr. Dumont notified.
[2020-07-20] MEDS: vancomycin 1,000 MG in sodium chloride 0.9% 250 ML 250 MG IV (11:18)
--- NOTE | 2020-07-20 13:23 | PM.PN ---
Subjective Subjective: Interval history: Patient was seen and examined this morning, he has continued to spike temperature, but clinically he is stable.Continues to saturate well on room air, denies any nausea vomiting abdominal pain, shortness of breath, chest pain. Vitals/I&O/Wt Last Vital Signs Temp 100.0 F H 07/20/20 11:34 Pulse 87 07/20/20 11:34 Resp 18 07/20/20 11:34 BP 135/69 07/20/20 11:34 Pulse Ox 92 07/20/20 11:34 07/19/20 07/20/20 07/20/20 22:59 06:59 14:59 Intake Total 540 / 1040 170 / 1210 524.583 / 524.583 Balance 540 / 1040 170 / 1210 524.583 / 524.583 Weight last 48 hrs Weight 74.843 kg Physical Exam Const: COMMON NORMALS: patient oriented x3 HENMT: COMMON NORMALS: normocephalic and atraumatic HEAD & SCALP: normocephalic and atraumatic Resp: COMMON NORMALS: clear to auscultation bilaterally EFFORT & INSPECTION: Yes symmetric chest movement AUSCULTATION: clear to auscultation bilaterally Cardio: COMMON NORMALS: regular rate, regular rhythm, S1 normal heart sound present, S2 normal heart sound present, No gallops present (Cardio), No murmurs present (Cardio), No rub (Cardio) and Peripheral pulses 2+ throughout RATE: regular rate RHYTHM: regular rhythm HEART SOUNDS: S1 normal heart sound present and S2 normal heart sound present PERIPHERAL PULSES: Peripheral pulses 2+ throughout GI: COMMON NORMALS: Normal to inspection, nondistended, normoactive bowel sounds present, Soft to palpation, non-tender, No hepatosplenomegaly present and no masses AUSCULTATION: Yes normoactive bowel sounds PALPATION: Yes Soft to palpation and Yes No hepatosplenomegaly present RECTAL EXAM: Yes deferred Extremity: COMMON NORMALS: no clubbing, cyanosis or edema and no pedal edema Neuro: COMMON NORMALS: patient oriented x3 Data : 07/20/20 06:13 07/20/20 06:13 Micro: Microbiology 07/19/20 09:16 Blood Culture - Preliminary Blood NEGATIVE TO DATE 07/19/20 09:10 Blood Culture - Preliminary Blood NEGATIVE TO DATE A&P Assessment and plan (1) SIRS (systemic inflammatory response syndrome): SIRS R/O Sepsis Blood culture; NTD Urine culture: Lactic acid: 2 Procalcitonin: 0.27 X-ray chest: No infiltrate, no effusion, Single calcified pulmonary granuloma is present, consistent with prior granulomatous disease. 2D echo: Respiratory viral panel: Tick Panel: Influenza A and B- negative Urine Legionella antigen: Negative Bacterial antigen panel: Pending Rapid Covid testing: Patient family has currently denied Covid testing.We will continue to monitor for now. Vancomycin ( 07/19--- Zosyn ( 07/19--- Doxycycline 100 mg q12 h Daily Status: Acute (2) Atrial fibrillation: Currently rate controlled: Continue diltiazem CD 180 MG p.o. daily Digoxin 125 mcg p.o. daily Patient has denied anticoagulation. Patient qualify for anticoagulation as per his [id number] score. Status: Acute (3) Labile essential hypertension: Status: Acute (4) TIA (transient ischemic attack): CT head without contrast: No acute intracranial pathology MRI brain without contrast: No acute infarct. Moderate to severe chronic microvascular ischemic changes with mild progression since 08/30/2018. Asymmetric appearance to the LEFT cerebellopontine angle is similar to the prior study. No definite signal abnormalities. If symptoms persist consider repeating MRI in 4-6 weeks with contrast. Aspirin 81 mg p.o. daily Atorvastatin 80 mg p.o. daily Plavix 75 mg p.o. daily on Hold Status: Acute (5) Ataxia: B12: Normal Folic acid: 13.7 TSH: 0.30 Status: Acute Additional A&P Information TIA Patient experienced left-sided weakness and ataxia, NIH 0, not a TPA candidate, roughly symptoms started around noon, CT head unremarkable we will get head MRI in the morning Start aspirin Plavix along high-dose statins Permissive hypertension Previous history of carotid endarterectomy We do not need OT/speech evaluation however will request PT evaluation before discharge He has history of A. fib, does not want to use anticoagulation however agreeable to aspirin Asymmetrical pupils are secondary to cataract and glaucoma surgeries, however as per the bilateral ptosis of the eyelid is getting worse, no recent aspiration on food, no previous history of myasthenia gravis Check A1c level and lipid profile A. fib without RVR Check digoxin level Continue diltiazem Patient agreeable to use of aspirin and Plavix but does not want to use any anticoagulating agent Follows up with Dr. Raya Cardiac diet DVT prophylaxis Lovenox Full code Attestations Medical Necessity Statement*: Patient currently needs to be in hospital for management of SIRS r/o sepsis. Coding Level of Care Code Acute Obstetrics Gynecology Physician for Chg Fwd Exam Detailed Diagnoses SIRS (systemic inflammatory response syndrome) R65.10 Atrial fibrillation I48.91 Labile essential hypertension I10 TIA (transient ischemic attack) G45.9 Ataxia R27.0
[2020-07-20] MEDS: doxycycline 100 MG in sodium chloride 0.9% (plus) 100 ML IV (14:24)
--- NOTE | 2020-07-20 15:36 | PC.NURSE ---
Patient is up waking the hallways at this time.
--- NOTE | 2020-07-20 19:22 | PC.NURSE ---
Report to Melissa IRVIN at this time.
[2020-07-20] MEDS: enoxaparin 40 mg/0.4 mL Syringe SUBCUT (21:00)
[2020-07-20] MEDS: atorvastatin 40 mg Tablet 80 MG PO (21:00)
[2020-07-21] VITALS (55 sets, daily range): BP systolic 120–182; BP diastolic 54–87; PULSE 64–102; RESP 0–31; TEMP 36.1–38.1; O2SAT 78–96
[2020-07-21] MEDS: doxycycline 100 MG in sodium chloride 0.9% (plus) 100 ML IV ×2 (01:06→13:31)
[2020-07-21] MEDS: piperacillin-tazobactam 3.375 GM in sodium chloride 0.9% (plus) 50 ML IV ×3 (02:14→18:12)
[2020-07-21] MEDS: vancomycin 1,000 MG in sodium chloride 0.9% 250 ML 250 MG IV ×2 (04:28→23:00)
[2020-07-21] MEDS: aspirin 81 mg EC Tablet PO (08:16)
[2020-07-21] MEDS: digoxin 125 mcg Tablet PO (08:16)
[2020-07-21] MEDS: dilTIAZem ER (24HR) 180 mg Capsule PO (08:17)
[2020-07-21 09:48] LABS: Basophils % 0.3 %; Hematocrit 45.4 % (42.0-52.0); Hemoglobin 14.7 g/dL (11.7-16.6); Lymphocytes # 0.5 10^3/uL (0.8-4.8); Mean Corpuscular HGB Conc 32.4 g/dL (30.0-36.0); Mean Corpuscular Hemoglobin 29.3 pg (28.0-34.0); Mean Corpuscular Volume 90.4 fL (80-94); Monocytes # 0.2 10^3/uL (0.2-0.9); Monocytes % 5.5 %; Neutrophils # 3.14 10^3/uL (1.8-7.7); Neutrophils % 81.7 %; Nucleated Red Blood Cells % 0 %; Platelet Count 49 10^3/cmm (130-400); Red Blood Count 5.02 10^6/uL (4.1-5.3); Red Cell Distribution Width 15.3 % (12.1-15.1); White Blood Count 3.8 10^3/uL (4.0-10.0)
[2020-07-21 10:23] LABS: Alanine Aminotransferase 32 U/L (0-41); Albumin Level 3.1 g/dL (3.5-5.2); Alkaline Phosphatase 57 IU/L (40-130); Aspartate Amino Transferase 72 U/L (0-40); Blood Urea Nitrogen 21 mg/dL (8-23); Calcium 7.6 mg/dL (8.5-10.5); Carbon Dioxide 24 mmol/L (22-29); Chloride 104 mmol/L (98-107); Creatinine Clr Calc Pharmacy 66.3223; Globulin 2.3 g/dL (1.3-4.6); Glucose 111 mg/dL (65-115); Osmolality Calculated 290 mOsm/kg (285-295); Sodium 138 mmol/L (136-145); Total Protein 5.4 g/dL (6.6-8.7)
[2020-07-21 10:29] LABS: Anion Gap 13.7 (5-19); Potassium 3.7 mmol/L (3.5-5.1)
[2020-07-21 10:45] LABS: Mean Platelet Volume 12.5 fL (7.4-10.4)
[2020-07-21 10:46] LABS: Slide Review Slide Review Perform
--- NOTE | 2020-07-21 11:57 | DCPLANNER ---
Per rounding; pt being changed to inpt. 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 Explained the IM and obtained Spouse's signature. Copy provided.
--- NOTE | 2020-07-21 14:18 | PC.NURSE ---
Report to ROBBIE Connors at this time.
[2020-07-21 14:22] LABS: LAB Peripheral Smear Sent for Review
--- NOTE | 2020-07-21 15:00 | PC.NURSE ---
Patient to ICU at this time.
[2020-07-21 16:31] LABS: Basophils % 0.3 %; Hematocrit 48.3 % (42.0-52.0); Hemoglobin 15.8 g/dL (11.7-16.6); Lymphocytes # 0.7 10^3/uL (0.8-4.8); Lymphocytes % 19.9 %; Mean Corpuscular HGB Conc 32.7 g/dL (30.0-36.0); Mean Corpuscular Hemoglobin 29.5 pg (28.0-34.0); Mean Corpuscular Volume 90.3 fL (80-94); Monocytes # 0.2 10^3/uL (0.2-0.9); Monocytes % 7.3 %; Neutrophils # 2.39 10^3/uL (1.8-7.7); Neutrophils % 72.2 %; Nucleated Red Blood Cells % 0 %; Red Blood Count 5.35 10^6/uL (4.1-5.3); Red Cell Distribution Width 15.4 % (12.1-15.1); White Blood Count 3.3 10^3/uL (4.0-10.0)
--- NOTE | 2020-07-21 16:59 | PM.PN ---
Subjective Subjective: Interval history: Patient was seen and examined this morning, he has continued to spike temperature. Currently he denies chest pain shortness of breath nausea vomiting, diarrhea, had one episode of black stool. T-max: 102.9. Platelet count has creased to 49,000, WBC is trended down to 3.8. Vitals/I&O/Wt Last Vital Signs Temp 100.5 F H 07/21/20 11:50 Pulse 92 07/21/20 11:50 Resp 18 07/21/20 11:50 BP 146/67 07/21/20 11:50 Pulse Ox 95 07/21/20 11:50 07/21/20 07/21/20 07/21/20 06:59 14:59 22:59 Intake Total 400 / 1430.000 390 / 390 Output Total 250 / 250 Balance 400 / 1430.000 140 / 140 Physical Exam Const: COMMON NORMALS: patient oriented x3 HENMT: COMMON NORMALS: normocephalic and atraumatic HEAD & SCALP: normocephalic and atraumatic Resp: COMMON NORMALS: clear to auscultation bilaterally EFFORT & INSPECTION: Yes symmetric chest movement AUSCULTATION: clear to auscultation bilaterally Cardio: COMMON NORMALS: regular rate, regular rhythm, S1 normal heart sound present, S2 normal heart sound present, No gallops present (Cardio), No murmurs present (Cardio), No rub (Cardio) and Peripheral pulses 2+ throughout RATE: regular rate RHYTHM: regular rhythm HEART SOUNDS: S1 normal heart sound present and S2 normal heart sound present PERIPHERAL PULSES: Peripheral pulses 2+ throughout GI: COMMON NORMALS: Normal to inspection, nondistended, normoactive bowel sounds present, Soft to palpation, non-tender, No hepatosplenomegaly present and no masses AUSCULTATION: Yes normoactive bowel sounds PALPATION: Yes Soft to palpation and Yes No hepatosplenomegaly present RECTAL EXAM: Yes deferred Extremity: COMMON NORMALS: no clubbing, cyanosis or edema and no pedal edema Neuro: COMMON NORMALS: patient oriented x3 Data : 07/21/20 16:16 07/21/20 09:21 Micro: Microbiology 07/21/20 10:00 MRSA Culture - Final Nose 07/19/20 18:12 Urine Culture - Preliminary Urine,Voided 07/20/20 16:19 Bacterial Antigens - Final Urine,Clean Catch 07/20/20 16:19 Legionella Urinary Antigen - Final Urine,Clean Catch A&P Assessment and plan (1) SIRS (systemic inflammatory response syndrome): SIRS R/O Sepsis Blood culture; NTD Urine culture: NTD Lactic acid: 2 Procalcitonin: 0.27 X-ray chest: No infiltrate, no effusion, Single calcified pulmonary granuloma is present, consistent with prior granulomatous disease. 2D echo: LVEF is improved from prior study currently at least 50-55%, mild to severe AI, mild MR Respiratory viral panel: Tick Panel: Influenza A and B- negative Urine Legionella antigen: Negative Bacterial antigen panel: Pending MRSA nares: Positive Rapid Covid testing: Patient family is currently not sure about Covid testing.We will continue to monitor for now. Will consider CT imaging Will consider LP (difficult with ongoing thrombocytopenia ) Vancomycin ( 07/19--- Zosyn ( 07/19--- Doxycycline 100 mg q12 h Daily Status: Acute (2) Atrial fibrillation: Currently rate controlled: Continue diltiazem CD 180 MG p.o. daily Digoxin 125 mcg p.o. daily Patient has denied anticoagulation. Patient qualify for anticoagulation as per his [id number] score. Status: Acute (3) Thrombocytopenia: Likely chronic thrombocytopenia cannot conclusively rule out ITP. HIT less likely 4 T score:2 TTP: Though patient has Fever,slight confusion, and Thrombocytopenia: Peripheral blood smear: Has failed to Show schistocytes. Hemolytic uremic syndrome: Less likely as the patient kidney function is normal, no diarrhea . Cannot conclusively rule out atypical HUS, DIC: Ruled out : serum fibrinogen: 289 Cannot conclusively rule out infection related thrombocytopenia Cannot conclusively rule out medication related thrombocytopenia. PBS Has not shown : Clumping Possible bone marrow Hepatitis panel HIV No history of alcohol use Discontinue aspirin and Plavix Monitor CBC for now Status: Acute (4) Leukopenia: Likely infection related. Monitor CBC for now Status: Acute (5) Labile essential hypertension: Status: Acute (6) Ataxia: B12: Normal Folic acid: 13.7 TSH: 0.30 Status: Acute (7) TIA (transient ischemic attack): CT head without contrast: No acute intracranial pathology MRI brain without contrast: No acute infarct. Moderate to severe chronic microvascular ischemic changes with mild progression since 08/30/2018. Asymmetric appearance to the LEFT cerebellopontine angle is similar to the prior study. No definite signal abnormalities. If symptoms persist consider repeating MRI in 4-6 weeks with contrast. Initially on aspirin 81 mg p.o. daily (currently on hold) Atorvastatin 40 mg p.o. daily Plavix 75 mg p.o. daily on Hold Status: Acute Additional A&P Information TIA Patient experienced left-sided weakness and ataxia, NIH 0, not a TPA candidate, roughly symptoms started around noon, CT head unremarkable we will get head MRI in the morning Start aspirin Plavix along high-dose statins Permissive hypertension Previous history of carotid endarterectomy We do not need OT/speech evaluation however will request PT evaluation before discharge He has history of A. fib, does not want to use anticoagulation however agreeable to aspirin Asymmetrical pupils are secondary to cataract and glaucoma surgeries, however as per the bilateral ptosis of the eyelid is getting worse, no recent aspiration on food, no previous history of myasthenia gravis Check A1c level and lipid profile A. fib without RVR Check digoxin level Continue diltiazem Patient agreeable to use of aspirin and Plavix but does not want to use any anticoagulating agent Follows up with Dr. Raya Cardiac diet DVT prophylaxis Lovenox Full code Attestations Medical Necessity Statement*: Patient needs to be in hospital for management of SIRS R/O SEPSIS, thrombocytopenia Coding Level of Care Code Acute Car Rental Manager for Chg Fwd Exam Detailed Diagnoses SIRS (systemic inflammatory response syndrome) R65.10 Atrial fibrillation I48.91 Thrombocytopenia D69.6 Leukopenia D72.819 Labile essential hypertension I10 Ataxia R27.0 TIA (transient ischemic attack) G45.9
--- NOTE | 2020-07-21 17:15 | XRR_ITS ---
PROCEDURE INFORMATION: Exam: XR Chest Exam date and time: 07/21/2020 5:16 PM Age: 75 years old Clinical indication: Fever; Additional info: Persistent tempreature TECHNIQUE: Imaging protocol: XR of the chest. Views: 1 view. COMPARISON: CR (CHEST, ) 07/18/2020 5:07 PM FINDINGS: Lungs: Unremarkable. No consolidation. Pleural spaces: Left costophrenic angle is obscured by the left heart border and a pleural effusion cannot be excluded.. No pneumothorax. Heart/Mediastinum: Cardiomegaly. Vasculature: There is calcified plaque in the aortic knob. Bones/joints: Unremarkable. XR/XR chest 1V portable [id number] IMPRESSION: Cardiomegaly.
[2020-07-21 17:19] LABS: Platelet Count 48 10^3/cmm (130-400)
[2020-07-21 17:20] LABS: Slide Review Slide Review Perform
[2020-07-21 19:55] LABS: INR 1.16 (0.8-1.2)
[2020-07-21 19:56] LABS: Fibrinogen 289 mg/dL (174-498); Partial Thromboplastin Time 45.8 SECONDS (23.9-36.7)
[2020-07-21 19:59] LABS: D Dimer 3.32 ug/mIFEU (0-0.59)
[2020-07-21] MEDS: atorvastatin 40 mg Tablet PO (21:01)
[2020-07-21] MEDS: hyDRALAzine 25 mg Tablet PO (21:01)
[2020-07-21 21:33] LABS: Hepatitis B Surface Antigen Non-Reactive (Nonreactive); Hepatitis C Virus Antibody Non-Reactive (Nonreactive)
--- NOTE | 2020-07-21 22:16 | PC.PHAR ---
Vancomycin trough on dosage of 1gm IVPB every 18 hours is 7.0. Dosage is increased to 1gm IVPB every 12 hours with another trough to be obtained before the fourth every 12 hour dose to see if further dosage adjustment is needed.
[2020-07-22] VITALS (25 sets, daily range): BP systolic 123–176; BP diastolic 50–96; PULSE 75–121; RESP 2–30; TEMP 36.8–36.9; O2SAT 88–96
--- NOTE | 2020-07-22 01:31 | ECG_ITS ---
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 Measurements Intervals [place] Rate: 124 P: PA: QRS: -52 QRSD: 108 T: 30 QT: 304 QTc: 437 Interpretive Statements ATRIAL FIBRILLATION WITH RAPID VENTRICULAR RESPONSE INCOMPLETE RIGHT BUNDLE BRANCH BLOCK [90+ ms QRS DURATION, TERMINAL R IN V1/V2, 40+ ms S IN I/aVL/V4/V5/V6] LEFT ANTERIOR FASCICULAR BLOCK [QRS AXIS <= -45, QR IN I, RS IN II] POSSIBLE ANTERIOR MYOCARDIAL INFARCTION [30 ms Q WAVE IN V3/V4, OR R < 0.2 mV IN V4], OF INDETERMINATE AGE Compared to ECG 07/18/2020 23:43:22 Myocardial infarct finding now present T-wave abnormality no longer present Electronically Signed On 07-22-2020 11:00:14 CDT by Mauricio Carrera M.D. [email or web address]
[2020-07-22] MEDS: doxycycline 100 MG in sodium chloride 0.9% (plus) 100 ML IV ×2 (02:06→13:43)
[2020-07-22] MEDS: piperacillin-tazobactam 3.375 GM in sodium chloride 0.9% (plus) 50 ML IV (02:06)
[2020-07-22 06:16] LABS: Basophils % 0.3 %; Hematocrit 47.3 % (42.0-52.0); Hemoglobin 15.5 g/dL (11.7-16.6); Lymphocytes # 0.8 10^3/uL (0.8-4.8); Lymphocytes % 23.3 %; Mean Corpuscular HGB Conc 32.8 g/dL (30.0-36.0); Mean Corpuscular Hemoglobin 28.8 pg (28.0-34.0); Mean Corpuscular Volume 87.9 fL (80-94); Monocytes # 0.4 10^3/uL (0.2-0.9); Monocytes % 11.4 %; Neutrophils # 2.21 10^3/uL (1.8-7.7); Neutrophils % 64.4 %; Nucleated Red Blood Cells % 0 %; Platelet Count 44 10^3/cmm (130-400); Red Blood Count 5.38 10^6/uL (4.1-5.3); Red Cell Distribution Width 15.3 % (12.1-15.1); White Blood Count 3.4 10^3/uL (4.0-10.0)
[2020-07-22 06:29] LABS: Alanine Aminotransferase 56 U/L (0-41); Albumin Level 3.3 g/dL (3.5-5.2); Alkaline Phosphatase 62 IU/L (40-130); Anion Gap 15.4 (5-19); Aspartate Amino Transferase 132 U/L (0-40); Blood Urea Nitrogen 16 mg/dL (8-23); Calcium 7.5 mg/dL (8.5-10.5); Carbon Dioxide 24 mmol/L (22-29); Chloride 99 mmol/L (98-107); Globulin 2.4 g/dL (1.3-4.6); Glucose 99 mg/dL (65-115); Osmolality Calculated 281 mOsm/kg (285-295); Potassium 3.4 mmol/L (3.5-5.1); Sodium 135 mmol/L (136-145); Total Bilirubin 0.9 mg/dL (0.15-1.2); Total Protein 5.7 g/dL (6.6-8.7)
[2020-07-22 07:01] LABS: Slide Review Slide Review Perform
--- NOTE | 2020-07-22 08:24 | PC.NURSE ---
0700 recd. sleeping. will allow to rest.
--- NOTE | 2020-07-22 08:25 | PC.NURSE ---
0810 getting out of bed. req. urinal. voided along with incontinence. pull up heavy
[2020-07-22] MEDS: dilTIAZem ER (24HR) 180 mg Capsule PO (09:31)
[2020-07-22] MEDS: digoxin 125 mcg Tablet PO (09:32)
[2020-07-22] MEDS: hyDRALAzine 25 mg Tablet PO ×3 (09:32→20:39)
[2020-07-22] MEDS: cefTRIAXone 2,000 MG in sodium chloride 0.9% (plus) 50 ML 100 MG IV ×2 (09:53→20:39)
--- NOTE | 2020-07-22 10:39 | PC.NURSE ---
ORDERS FOR COVID SWABS. PT. AND REFUSED TEST, EXPLAINED OPTIONS AND REQUESTED TO SPEAK TO ADMINISTRATION MORTAR MAN. TJ. ESPINO SPOKE WITH AND MADE EXCEPTION FOR HER TO STAY IF SHE WORE GOWN AND MASK D/T HER ALREADY BEING WITH PT.
[2020-07-22] MEDS: vancomycin 1,000 MG in sodium chloride 0.9% 250 ML 250 MG IV ×2 (10:45→22:16)
[2020-07-22 10:46] LABS: HIV 1 & 2 Antibody Non-Reactive (Non-Reactiv); HIV 1 & 2 Antigen Non-Reactive (Non-Reactiv)
--- NOTE | 2020-07-22 12:13 | P.PN_ITS ---
Subjective Subjective: Interval history: T max 100.5F last 24 hrs, however not charted since 4pm yesterday. Continues to be tachycardic with HR ranging between 104- 120, max to 140, worsening platelet count 44, WBC 3.4. Per at bedside, mentation is back at baseline. 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 Data : 07/22/20 05:22 07/22/20 05:22 Micro: Microbiology 07/22/20 09:25 Blood Culture - Preliminary Blood SPECIMEN COLLECTED 07/22/20 09:20 Blood Culture - Preliminary Blood SPECIMEN COLLECTED 07/19/20 18:12 Urine Culture - Final Urine,Voided 07/21/20 10:00 MRSA Culture - Final Nose A&P Assessment and plan (1) SIRS (systemic inflammatory response syndrome): SIRS, currently undergoing evaluation for sepsis Blood culture; NTD thus far Urine culture: NTD Procalcitonin: 0.27 X-ray chest: No infiltrate, no effusion, Single calcified pulmonary granuloma is present, consistent with prior granulomatous disease. Tick Panel: pending Influenza A and B- negative Urine Legionella antigen: Negative Bacterial antigen panel: negative MRSA nares: Positive and patient adamantly refusing COVID testing, including rapid covid testing as they do not believe in all this COVID . I have made multiple attempts at explaining the rationale for testing, including the possibility that pancytopenia, elevated D dimer , new 02 requirement of 2lpm NC at admission, loss of taste and stomach upset may be symptoms of COVID or other acute viral illness. 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 However patient and refuse it regardless, stating they will go home rather than get tested . He has been placed on COVID precautions in keeping with our infection control po licies. All staff to wear protective PPE until an alternate explanation can be obtained for his clinical signs and symptoms. updated that patient needs to be on precautions and that we do not allow visitors once patient on precautions, she has obtained special permission from [facility] to remain at bedside. Instructed to wear PPE, remain in patient's room at all times and refrain from exposing other patients in the facility. 2D echo: LVEF is improved from prior study currently at least 50-55%, mild to severe AI, mild MR Respiratory viral panel: refused CTA PE, CT abdomen/ pelvis for sepsis source evaluation, worsening pancytopenia, possible PE given elevated D dimer Defer LP for now given improved mental status, worsening thrombocytopenia Vancomycin ( 07/19-- Zosyn ( 07/19---> cange to Ceftriaxone 2g iv q12h for better CSF penetration, tick borne coverage Doxycycline 100 mg q12 h Daily to continue Status: Acute (2) Atrial fibrillation: Rapid A fib with RVR Increase diltiazem CD to 240mg daily , hesitant to make change Digoxin 125 mcg p.o. daily Patient has declined anticoagulation. Not a good time to initiate regardless due to falling platelets Status: Acute (3) Thrombocytopenia: Possible alternate differentials include: TTP: Though patient has Fever,slight confusion, and Thrombocytopenia: Peripheral blood smear: Has failed to Show schistocytes. Hemolytic uremic syndrome: Less likely as the patient kidney function is normal, no diarrhea . Cannot conclusively rule out atypical HUS DIC: Ruled out : serum fibrinogen: 289 Cannot conclusively rule out infection related thrombocytopenia PBS Has not shown : Clumping Possible bone marrow, hematology consult if infectious w/up remaisn unrevealing Hepatitis panel negative HIV screen negative No history of alcohol use Discontinue aspirin and Plavix due to thrombocytopenia Monitor CBC for now Status: Acute (4) Leukopenia: Likely infection related. Monitor CBC for now Status: Acute (5) Labile essential hypertension: Status: Acute (6) Ataxia: B12: Normal Folic acid: 13.7 TSH: 0.30 Status: Acute (7) TIA (transient ischemic attack): CT head without contrast: No acute intracranial pathology MRI brain without contrast: No acute infarct. Moderate to severe chronic microvascular ischemic changes with mild progression since 08/30/2018. Asymmetric appearance to the LEFT cerebellopontine angle is similar to the prior study. No definite signal abnormalities. If symptoms persist consider repeating MRI in 4-6 weeks with contrast. Initially on aspirin 81 mg p.o. daily (currently on hold) Atorvastatin 40 mg p.o. daily Plavix 75 mg p.o. daily on Hold Status: Acute Attestations Medical Necessity Statement*: worsening pancytopenia, persisting fever , undergoing infectiosu evaluation at this time , CTA PE and abd/pelvis Critical Care Time: The high probability of a clinically significant, sudden or life threatening deterioration of the patient's [hematology, infectious, hepatic] system(s) required my full and direct attention, intervention and personal management. The critical care time is as shown. This time is in addition to time spent performing any reported procedures but includes the following: [x] Data and vital sign review and interpretation [x] Patient assessment, examination and intervention [x] Documentation [x] Medication orders and management Critical Care Time (min): 60 Coding Level of Care Code Acute Fisher Swordfish for g Fwd Diagnoses SIRS (systemic inflammatory response syndrome) R65.10 Atrial fibrillation I48.91 Thrombocytopenia D69.6 Leukopenia D72.819 Labile essential hypertension I10 Ataxia R27.0 TIA (transient ischemic attack) G45.9
--- NOTE | 2020-07-22 12:29 | CTR_ITS ---
PROCEDURE INFORMATION: Exam: CTA Chest With Contrast Exam date and time: 07/22/2020 3:10 PM Age: 75 years old Clinical indication: Fever; Additional info: Sepsis source evaluation TECHNIQUE: Imaging protocol: Computed tomographic angiography of the chest with contrast. 3D rendering (Not supervised by radiologist): MIP and/or 3D reconstructed images were created by the technologist. Radiation optimization: All CT scans at this facility use at least one of these dose optimization techniques: automated exposure control; mA and/or kV adjustment per patient size (includes targeted exams where dose is matched to clinical indication); or iterative reconstruction. Contrast material: OMNI 350; Contrast volume: 95 ml; Contrast route: INTRAVENOUS (IV); COMPARISON: CR (CHEST, ) 07/21/2020 6:06 PM RADIATION DOSE METRICS: Total DLP (mGy-cm): 1316.3 FINDINGS: Pulmonary arteries: Normal. No pulmonary emboli. Aorta: Unremarkable. No aortic aneurysm. No aortic dissection. Lungs: No lung mass or significant consolidation. Pleural spaces: There are small bilateral pleural effusions. No pneumothorax. Heart: Cardiomegaly is identified. Lymph nodes: Unremarkable. No enlarged lymph nodes. Bones/joints: Degenerative change is identified in the spine. There is no evidence for acute fracture or malalignment. Soft tissues: Unremarkable. IMPRESSION: There are no acute concerning abnormalities. PROCEDURE INFORMATION: Exam: CT Abdomen And Pelvis With Contrast Exam date and time: 07/22/2020 3:10 PM Age: 75 years old Clinical indication: Fever; Additional info: Sepsis source evaluation TECHNIQUE: Imaging protocol: Computed tomography of the abdomen and pelvis with contrast. Radiation optimization: All CT scans at this facility use at least one of these dose optimization techniques: automated exposure control; mA and/or kV adjustment per patient size (includes targeted exams where dose is matched to clinical indication); or iterative reconstruction. Contrast material: OMNI 350; Contrast volume: 95 ml; Contrast route: INTRAVENOUS (IV); COMPARISON: CR (CHEST, ) 07/21/2020 6:06 PM RADIATION DOSE METRICS: Total DLP (mGy-cm): 1316.3 FINDINGS: Liver: There is a right liver cyst. No solid liver mass. Gallbladder and bile ducts: Gallstones are identified although there are no CT findings to suggest cholecystitis. Pancreas: Normal. No ductal dilation. Spleen: Normal. No splenomegaly. Adrenal glands: Normal. No mass. Kidneys and ureters: Hypodensities in the kidney are too small to definitely characterize although statistically they most likely represent benign cysts. No renal calcification or hydronephrosis. Stomach and bowel: Unremarkable. No obstruction. No mucosal thickening. Appendix: The appendix is visualized and appears normal. Intraperitoneal space: Unremarkable. No free air. No significant fluid collection. Vasculature: Unremarkable. No abdominal aortic aneurysm. Lymph nodes: Unremarkable. No enlarged lymph nodes. Urinary bladder: Unremarkable as visualized. Reproductive: Unremarkable as visualized. Bones/joints: Unremarkable. No acute fracture. Soft tissues: Unremarkable. CT/CT angio chest w abd pel w con IMPRESSION: There are no acute concerning abnormalities. COMMENTS: Consistent with the [employer]'s Incidental Findings Committee white paper (J Am Dangelo Radiol 2018): Any incidental renal lesion less than 1 cm or classified as too small to characterize, or any incidental cystic renal lesion characterized as simple-appearing, is likely benign. No follow-up imaging is recommended for these lesions per consensus recommendations based on imaging criteria. Radiation Dose CTDIVOL = (mGy): DLP = 1316.3~1316.3 (mGy-cm)
[2020-07-22] MEDS: potassium chloride ER 20 mEq Tablet 40 MEQ PO (13:21)
[2020-07-22] MEDS: dilTIAZem 30 mg Tablet PO ×2 (13:45→20:45)
[2020-07-22] MEDS: iohexol 350 mg/mL 100 mL Btl IV (15:13)
--- NOTE | 2020-07-22 15:36 | PC.NURSE ---
back from ct. zach. well. some dizziness when standing
[2020-07-22] MEDS: sucralfate 1 gm Tablet PO (17:58)
--- NOTE | 2020-07-22 18:35 | PC.NURSE ---
URINE OUTPUT NOT ACCURATE D/T FAMILY DUMPING URINAL AND PT. IS INCONTINENT OF URINE AND STOOL. STOOL INCONTINENCE IS R/T URINATING. EACH TIME HE VOIDS STOOL RUNS OUT.
[2020-07-22] MEDS: atorvastatin 40 mg Tablet PO (20:39)
[2020-07-23] VITALS (24 sets, daily range): BP systolic 118–167; BP diastolic 53–108; PULSE 62–88; RESP 10–25; TEMP 37.2; O2SAT 91–96
[2020-07-23] MEDS: doxycycline 100 MG in sodium chloride 0.9% (plus) 100 ML IV ×2 (01:30→13:55)
[2020-07-23 04:23] LABS: Basophils % 0.5 %; Eosinophils % 0.2 %; Hematocrit 46.9 % (42.0-52.0); Hemoglobin 15.7 g/dL (11.7-16.6); Lymphocytes # 1.7 10^3/uL (0.8-4.8); Lymphocytes % 40.8 %; Mean Corpuscular HGB Conc 33.5 g/dL (30.0-36.0); Mean Corpuscular Volume 86.5 fL (80-94); Monocytes # 0.6 10^3/uL (0.2-0.9); Monocytes % 13.6 %; Neutrophils # 1.84 10^3/uL (1.8-7.7); Neutrophils % 44.7 %; Nucleated Red Blood Cells % 0 %; Platelet Count 61 10^3/cmm (130-400); Red Blood Count 5.42 10^6/uL (4.1-5.3); Red Cell Distribution Width 15.4 % (12.1-15.1); White Blood Count 4.1 10^3/uL (4.0-10.0)
[2020-07-23 04:39] LABS: Alanine Aminotransferase 130 U/L (0-41); Albumin Level 3.1 g/dL (3.5-5.2); Alkaline Phosphatase 60 IU/L (40-130); Anion Gap 14.7 (5-19); Aspartate Amino Transferase 223 U/L (0-40); Blood Urea Nitrogen 18 mg/dL (8-23); C Reactive Protein 25.8 mg/L (0.0-4.9); Calcium 7.9 mg/dL (8.5-10.5); Carbon Dioxide 23 mmol/L (22-29); Chloride 105 mmol/L (98-107); Globulin 2.4 g/dL (1.3-4.6); Glucose 108 mg/dL (65-115); Lactate Dehydrogenase 570 U/L (135-225); Osmolality Calculated 290 mOsm/kg (285-295); Potassium 3.7 mmol/L (3.5-5.1); Sodium 139 mmol/L (136-145); Total Bilirubin 0.5 mg/dL (0.15-1.2); Total Protein 5.5 g/dL (6.6-8.7)
[2020-07-23 04:55] LABS: Slide Review Slide Review Perform
[2020-07-23 05:23] LABS: Ferritin 5522 ng/mL (30-400)
[2020-07-23 05:24] LABS: Erythrocyte Sedimentation Rate 6 mm/hr (0-10)
[2020-07-23] MEDS: dilTIAZem ER (24HR) 180 mg Capsule PO (08:44)
[2020-07-23] MEDS: cefTRIAXone 2,000 MG in sodium chloride 0.9% (plus) 50 ML 100 MG IV ×2 (08:44→20:46)
[2020-07-23] MEDS: hyDRALAzine 25 mg Tablet PO ×3 (08:45→20:47)
[2020-07-23] MEDS: sucralfate 1 gm Tablet PO ×3 (08:45→20:47)
[2020-07-23] MEDS: digoxin 125 mcg Tablet PO (08:45)
[2020-07-23] MEDS: vancomycin 1,000 MG in sodium chloride 0.9% 250 ML 250 MG IV ×2 (10:12→23:07)
--- NOTE | 2020-07-23 10:33 | PC.CHAP ---
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 tankroom worker visit [] Patient/Family/Request visit [] Outpatient visit [] Follow-up visit [] Physician referral [] Code/Alert [x] Routine visit [] Staff referral [] Actively dying [] Patient sleeping [] Family support [] [] Out of room [] Palliative care [] [x] Receiving care in room [] Pre-surgical visit [] Trauma [] Long length of stay [x] ICU visit [] Other: Relational/Emotional Strength [] Patient feels connected with others/family/visitors/staff [] Distress [] Loneliness/isolation [] Abandonment Spirituality of Patient [] Person of Kristina [] Attends Judaism of their Kristina [] Believes in Prayer [] Reads Bible or Anglican materials [] There are Spiritual issues to be addressed Wire Strander Interventions [x] Prayer [] Active listening [] Non-anxious presence [] Spiritual/emotional support [] Crisis/trauma care [] Spiritual counseling [] Bereavement support [] Provided bereavement packet [] Provided Bible/devotional materials [] Provided toy/stuffed animal, coloring book to patient or family member [] Provided Communion [] Anointing/[place] [] Salvation [x] Completed spiritual assessment [] Other: Impact on Illness or Injury [] Angry [] Fearful [] Anxious [] Often cries [] Exhaustion [] Unable to work [] Unable to attend gnosticism [] Unable to walk/stand [] Unable to read [] Unable to drive [] Unable to eat/drink [] Unable to sleep [] Unable to be with family [] Patient intubated [] Other: Summary Time spent with patient
[2020-07-23 10:54] LABS: Vancomycin Trough 16.1 ug/mL (10-15)
--- NOTE | 2020-07-23 11:30 | P.PN_ITS ---
Subjective Subjective: Interval history: Improving WBC and platelet counts today, patient remains afebrile now for over 24 hours. Symptomatically feels improved, energy improving. Medications: Reviewed: Yes Vitals/I&O/Wt Last Vital Signs Temp 98.9 F 07/23/20 04:04 Pulse 78 07/23/20 09:00 Resp 19 H 07/23/20 09:00 BP 167/101 07/23/20 09:00 Pulse Ox 95 07/23/20 09:00 07/22/20 07/23/20 07/23/20 22:59 06:59 14:59 Intake Total 470 / 1110 250 / 1360 540 / 540 Output Total 100 / 200 475 / 675 Balance 370 / 910 -225 / 685 540 / 540 Physical Exam Narrative: EXAM NARRATIVE: GEN: Awake, alert and oriented, no acute distress CVS: S1S2 N RS: CTA B/L anteriorly Abd: Soft, nt/nd , bs+ NEUROLOGY TECHNOLOGIST: no focal motor neuro deficits Data : 07/23/20 03:33 07/23/20 03:33 Micro: Microbiology 07/22/20 09:25 Blood Culture - Preliminary Blood NEGATIVE TO DATE 07/22/20 09:20 Blood Culture - Preliminary Blood NEGATIVE TO DATE 07/21/20 17:45 Occult Blood (FIT) - Final Stool Routine Collection 07/19/20 18:12 Urine Culture - Final Urine,Voided A&P Assessment and plan (1) SIRS (systemic inflammatory response syndrome): SIRS, currently undergoing evaluation for sepsis Blood culture; NTD thus far Urine culture: NTD Procalcitonin: 0.27 X-ray chest: No infiltrate, no effusion, Single calcified pulmonary granuloma is present, consistent with prior granulomatous disease. Tick Panel: pending Influenza A and B- negative Urine Legionella antigen: Negative Bacterial antigen panel: negative MRSA nares: Positive and patient adamantly refusing COVID testing Respiratory viral panel: refused CTA PE, CT abdomen/ pelvis for sepsis source evaluation negative for any infections Defer LP for now given improved mental status Vancomycin ( 07/19-- Zosyn ( 07/19-07/22--> Ceftriaxone 2g iv q12h for better CSF penetration, tick borne coverage Doxycycline 100 mg q12 h Daily to continue Given overall w/up , suspect tick borne vs acute viral illness. CRP, LDH, Ferritin and D dimer elevated, likely inflammatory markers, refused COVID testing Status: Acute (2) Atrial fibrillation: Rapid A fib with RVR Increase diltiazem CD to 240mg daily improved rate Digoxin 125 mcg p.o. daily Patient has declined anticoagulation. Not a good time to initiate regardless due to falling platelets Status: Acute (3) Thrombocytopenia: Possible alternate differentials include: TTP: Though patient has Fever,slight confusion, and Thrombocytopenia: Peripheral blood smear: Has failed to Show schistocytes. Hemolytic uremic syndrome: Less likely as the patient kidney function is normal, no diarrhea . Cannot conclusively rule out atypical HUS DIC: Ruled out : serum fibrinogen: 289 Cannot conclusively rule out infection related thrombocytopenia PBS Has not shown : Clumping Possible bone marrow, hematology consult if infectious w/up remaisn unrevealing Hepatitis panel negative HIV screen negative No history of alcohol use Discontinue aspirin and Plavix due to thrombocytopenia Monitor CBC for now Status: Acute (4) Leukopenia: Likely infection related. Monitor CBC for now Status: Acute (5) Labile essential hypertension: Status: Acute (6) Ataxia: B12: Normal Folic acid: 13.7 TSH: 0.30 Status: Acute (7) TIA (transient ischemic attack): CT head without contrast: No acute intracranial pathology MRI brain without contrast: No acute infarct. Moderate to severe chronic microvascular ischemic changes with mild progression since 08/30/2018. Asymmetric appearance to the LEFT cerebellopontine angle is similar to the prior study. No definite signal abnormalities. If symptoms persist consider repeating MRI in 4-6 weeks with contrast. Initially on aspirin 81 mg p.o. daily (currently on hold) Atorvastatin 40 mg p.o. daily Plavix 75 mg p.o. daily on Hold Status: Acute Attestations Medical Necessity Statement*: transfer from ICU to med/surg, if continues to hav eimproving counts and remains afebrile, planned discharge in the upcoming 24 to 48 hrs Critical Care Time: The high probability of a clinically significant, sudden or life threatening deterioration of the patient's [hematology, neuro] system(s) required my full and direct attention, intervention and personal management. The critical care time is as shown. This time is in addition to time spent performing any reported procedures but includes the following: [x] Data and vital sign review and interpretation [x] Patient assessment, examination and intervention [x] Documentation [x] Medication orders and management Critical Care Time (min): 45 Coding Level of Care Code Acute Risk Control Manager for Chg Fwd Diagnoses SIRS (systemic inflammatory response syndrome) R65.10 Atrial fibrillation I48.91 Thrombocytopenia D69.6 Leukopenia D72.819 Labile essential hypertension I10 Ataxia R27.0 TIA (transient ischemic attack) G45.9
[2020-07-23] MEDS: ondansetron 2 mg/ML SDV 2 mL 4 MG IVP (14:24)
[2020-07-23 15:49] LABS: Lyme AB Screen <0.90 index
[2020-07-23] MEDS: atorvastatin 40 mg Tablet PO (20:46)
[2020-07-24] VITALS (17 sets, daily range): BP systolic 108–160; BP diastolic 45–101; PULSE 60–88; RESP 0–21; TEMP 36.6; O2SAT 94–99
[2020-07-24] MEDS: doxycycline 100 MG in sodium chloride 0.9% (plus) 100 ML IV ×2 (01:04→13:37)
[2020-07-24 05:38] LABS: Basophils # 0.1 10^3/uL (0.0-0.1); Basophils % 0.8 %; Eosinophils # 0.1 10^3/uL (0.0-0.8); Eosinophils % 0.9 %; Hematocrit 45.5 % (42.0-52.0); Hemoglobin 15.2 g/dL (11.7-16.6); Lymphocytes # 3.3 10^3/uL (0.8-4.8); Lymphocytes % 49.8 %; Mean Corpuscular HGB Conc 33.4 g/dL (30.0-36.0); Mean Corpuscular Hemoglobin 29.1 pg (28.0-34.0); Mean Platelet Volume 13.9 fL (7.4-10.4); Monocytes # 0.7 10^3/uL (0.2-0.9); Monocytes % 11.1 %; Neutrophils # 2.46 10^3/uL (1.8-7.7); Neutrophils % 36.9 %; Nucleated Red Blood Cells % 0 %; Platelet Count 72 10^3/cmm (130-400); Red Blood Count 5.23 10^6/uL (4.1-5.3); Red Cell Distribution Width 15.3 % (12.1-15.1); White Blood Count 6.7 10^3/uL (4.0-10.0)
[2020-07-24 05:58] LABS: Alanine Aminotransferase 172 U/L (0-41); Alkaline Phosphatase 54 IU/L (40-130); Anion Gap 11.3 (5-19); Aspartate Amino Transferase 254 U/L (0-40); Blood Urea Nitrogen 17 mg/dL (8-23); Carbon Dioxide 25 mmol/L (22-29); Chloride 105 mmol/L (98-107); Globulin 2.5 g/dL (1.3-4.6); Glucose 97 mg/dL (65-115); Osmolality Calculated 287 mOsm/kg (285-295); Potassium 3.3 mmol/L (3.5-5.1); Sodium 138 mmol/L (136-145); Total Bilirubin 0.5 mg/dL (0.15-1.2); Total Protein 5.5 g/dL (6.6-8.7)
[2020-07-24 06:27] LABS: Slide Review Slide Review Perform
[2020-07-24] MEDS: dilTIAZem ER (24HR) 180 mg Capsule PO (08:06)
[2020-07-24] MEDS: sucralfate 1 gm Tablet PO ×2 (08:06→13:59)
[2020-07-24] MEDS: digoxin 125 mcg Tablet PO (08:06)
[2020-07-24] MEDS: hyDRALAzine 25 mg Tablet PO ×2 (08:06→13:59)
[2020-07-24] MEDS: cefTRIAXone 2,000 MG in sodium chloride 0.9% (plus) 50 ML 100 MG IV (08:07)
[2020-07-24] MEDS: vancomycin 1,000 MG in sodium chloride 0.9% 250 ML 250 MG IV (10:27)
--- NOTE | 2020-07-24 10:51 | PC.CHAP ---
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 head lineman visit [] Patient/Family/Request visit [] Outpatient visit [] Follow-up visit [] Physician referral [] Code/Alert [x] Routine visit [] Staff referral [] Actively dying [] Patient sleeping [] Family support [] [] Out of room [] Palliative care [] [] Receiving care in room [] Pre-surgical visit [] Trauma [] Long length of stay [x] ICU visit [] Other: Relational/Emotional Strength [] Patient feels connected with others/family/visitors/staff [] Distress [] Loneliness/isolation [] Abandonment Spirituality of Patient [] Person of Kristina [] Attends Hoahaoism of their Kristina [] Believes in Prayer [] Reads Bible or Gnosticism materials [] There are Spiritual issues to be addressed Dressage Judge Interventions [x] Prayer [x] Active listening [x] Non-anxious presence [x] Spiritual/emotional support [] Crisis/trauma care [] Spiritual counseling [] Bereavement support [] Provided bereavement packet [] Provided Bible/devotional materials [] Provided toy/stuffed animal, coloring book to patient or family member [] Provided Communion [] Anointing/[place] [] Salvation [x] Completed spiritual assessment [] Other: Impact on Illness or Injury [] Angry [] Fearful [] Anxious [] Often cries [] Exhaustion [] Unable to work [] Unable to attend congregation [] Unable to walk/stand [] Unable to read [] Unable to drive [] Unable to eat/drink [] Unable to sleep [] Unable to be with family [] Patient intubated [] Other: Summary Time spent with patient
--- NOTE | 2020-07-24 12:29 | PC.SOCIAL ---
*IMM UPDATE* Gave patient IMM update. Provided him copy of pg 2. Verbalized understanding. 07/24/20 @ 2124 Initialed,dated, timed and placed in chart.
--- NOTE | 2020-07-24 23:30 | PM.DCS ---
Discharge Providers Date of Admission: 07/18/20 19:00 Date of Discharge: July 24, 2020 Attending Provider at Admission: Eden Grady MD Attending Provider at Discharge: Ilsa Luciano MD Primary Care Provider: DONAVAN Casiano Diagnoses at Discharge Discharge Diagnosis (1) SIRS (systemic inflammatory response syndrome): Status: Acute (2) Atrial fibrillation: Status: Acute (3) Thrombocytopenia: Status: Acute (4) Leukopenia: Status: Acute (5) Labile essential hypertension: Status: Acute (6) Ataxia: Status: Acute (7) TIA (transient ischemic attack): Status: Acute Reason for Visit Reason for Visit: High BP, CHF Related 47570 Hospital Course Hospital Course Bud Corona is a 75 year old male with chronic history of hypertension, atrial fibrillation presented 07/18 with chief complaint of generalized weakness and ataxia. Hospital course as noted below: (1) SIRS (systemic inflammatory response syndrome): SIRS, sepsis source evaluation without clear diagnosis, however suspect viral vs tick borne etiology Blood culture; NTD thus far Urine culture: NTD X-ray chest: No infiltrate, no effusion, Single calcified pulmonary granuloma is present, consistent with prior granulomatous disease. Tick Panel: pending for Ehrlichia, RMSF, lyme negative , follow up with PMD Influenza A and B- negative Urine Legionella antigen: Negative Bacterial antigen panel: negative MRSA nares: Positive and patient adamantly refusing COVID testing Respiratory viral panel: refused CTA PE, CT abdomen/ pelvis for sepsis source evaluation negative for any infections Defer LP for now given improved mental status Vancomycin ( 07/19-- Zosyn ( 07/19-07/22--> Ceftriaxone 2g iv q12h for better CSF penetration, tick borne coverage Doxycycline 100 mg q12 h Daily to continue for 7 days after discharge (2) Atrial fibrillation: Rapid A fib with RVR Increase diltiazem CD to 240mg daily improved rate Digoxin 125 mcg p.o. daily Patient has declined anticoagulation. Not a good time to initiate regardless due to falling platelets (3) Thrombocytopenia: now resolved (4) Leukopenia: resolved (5) Labile essential hypertension: contollled (6) Ataxia: B12: Normal Folic acid: 13.7 TSH: 0.30 (7) TIA (transient ischemic attack): CT head without contrast: No acute intracranial pathology MRI brain without contrast: No acute infarct. Moderate to severe chronic microvascular ischemic changes with mild progression since 08/30/2018. Asymmetric appearance to the LEFT cerebellopontine angle is similar to the prior study. No definite signal abnormalities. If symptoms persist consider repeating MRI in 4-6 weeks with contrast. 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: no focal neuro deficits Discharge Data Data Completed and Pending: Completed Studies During Hospitalization Category Date Time Status CT angio chest w abd pel w con Rout ine Cat Scan 07/22/20 12:[address] head wo con* 7 0450 Urgent Cat Scan 07/18/20 16:58 Completed XR chest 1V enmanuel ble [id number] Routine Exams 07/21/20 17:15 Completed XR chest 1V enmanuel ble [id number] Urgent Exams 07/18/20 16:42 Completed MR head wo con* 7 0551 Routine MRI 07/19/20 10:15 Completed CV echo complete* [id number] Routine Ultrasound 07/19/20 11:29 Completed Pending at discharge Category Date Time Status Blood Culture Sta t Lab 07/22/20 09:25 Results Coronavirus Test [facility] ne Lab 07/22/20 08:24 Ordered Respiratory Viral Panel PCR Routine Lab 07/20/20 13:15 Ordered Tick Panel Routin e Lab 07/20/20 13:38 Results Labs from last 24 hours 07/24/20 07/24/20 04:42 04:42 WBC 6.7 RBC 5.23 Hgb 15.2 Hct 45.5 MCV 87.0 MCH 29.1 MCHC 33.4 RDW 15.3 H Plt Count 72 L MPV 13.9 H Neut % (Auto) 36.9 Lymph % (Auto) 49.8 Frontier % (Auto) 11.1 Eos % (Auto) 0.9 Baso % (Auto) 0.8 Neut # (Auto) 2.46 Lymph # (Auto) 3.3 Frontier # (Auto) 0.7 Eos # (Auto) 0.1 Baso # (Auto) 0.1 Nucleated RBC % (a uto) 0 Nucleated RBCs # 0.0 Sodium 138 Potassium 3.3 L Chloride 105 Carbon Dioxide 25 Anion Gap 11.3 BUN 17 Creatinine 1.0 GFR Calculation Not Reportable Glucose 97 Calculated Osmolal ity 287 Calcium 8.0 L Total Bilirubin 0.5 AST 254 H ALT 172 H Alkaline Phosphata se 54 Total Protein 5.5 L Albumin 3.0 L Globulin 2.5 Vitals: Last Vital Signs Temp 97.9 F 07/24/20 13:15 Pulse 60 07/24/20 14:59 Resp 18 07/24/20 13:15 BP 119/64 07/24/20 13:15 Pulse Ox 99 07/24/20 13:15 Discharge Plan Discharge Patient Disposition: Home Condition: Stable Prescriptions: New hydralazine 25 mg Tablet 25 mg PO TID 30 Days Qty: 90 RF: 0 doxycycline hyclate 100 mg tablet 100 mg PO BID 7 Days Qty: 14 RF: 0 Continued garlic 1,500 mg capsule 1,500 mg PO DAILY RF: 0 multivitamin Tablet 1 tab PO DAILY RF: 0 hawthorn 500 mg capsule 500 mg PO DAILY RF: 0 cannabidiol 100 mg/mL solution 50 - 100 mg PO DAILY PRN (Reason: Sleep) RF: 0 ascorbic acid (vitamin C) 500 mg capsule 500 mg PO DAILY RF: 0 cholecalciferol (vitamin D3) 50 mcg (2,000 unit) capsule 2,000 unit PO DAILY RF: 0 diltiazem HCl 180 mg capsule,extended release 24hr 180 mg PO DAILY Qty: 90 RF: 3 digoxin 125 mcg (0.125 mg) tablet 125 mcg PO DAILY Qty: 90 RF: 3 Discharge Orders: Discharge Order (Routine); Ordered 07/24/20 Ordered By: Ilsa Gates Ambulatory Orders: Liver Panel (Routine) Timeframe: 3 Days Location: Determined by Patient Ordered By: Ilsa Luciano Patient Instructions: Doxycycline (By mouth), Hydralazine (By mouth), Transient Ischemic Attack (DC), Opioid Safety Discharge Attestations Time Spent in Discharge Care*: greater than 30 min Specific Discharge Activities: educating patient, educating and/or supporting family/caregiver, discussing with patient case coordinator/social workers/dc planners and documenting/other paperwork Status at Discharge: Cognitive status at discharge: cognitively intact, Behavioral status at discharge: cooperative, Functional status at discharge: independent ambulation Overall status at discharge: patient is back to baseline Quality Metrics Clinical Quality Measures During this hospital stay, did patient experience: None Coding Level of Care Code Acute Chg FW DC note Diagnoses SIRS (systemic inflammatory response syndrome) R65.10 Atrial fibrillation I48.91 Thrombocytopenia D69.6 Leukopenia D72.819 Labile essential hypertension I10 Ataxia R27.0 TIA (transient ischemic attack) G45.9
[2020-07-25 16:33] LABS: RMSF IGG NOT DETECTED; RMSF IGM NOT DETECTED
[2020-07-25 17:03] LABS: E. Chaffeensis AB IGG <1:64; E. Chaffeensis AB IGM <1:20
== END 2020-07-24 14:59 | disposition home or self-care (01) | DRG 872 ==
LOC: ER 18:46 → MEDSURG 20:21 → ICU 07-22 07:27 → MEDSURG 07-24 08:31
PROVIDERS: Internal Medicine; Admitting Provider Internal Medicine; Emergency Provider Emergency Medicine; PCP Nurse Practitioner; Visit Provider Student in an Organized Health Care Education/Training Program
DX: A41.9 Sepsis, unspecified organism (principal); G45.9 Transient cerebral ischemic attack, unspecified; D61.818 Other pancytopenia; R65.10 Systemic inflammatory response syndrome (SIRS) of non-infectious origin without acute organ dysfunction; B34.9 Viral infection, unspecified; I48.91 Unspecified atrial fibrillation; I10 Essential (primary) hypertension; D69.6 Thrombocytopenia, unspecified; D72.819 Decreased white blood cell count, unspecified; R27.0 Ataxia, unspecified; R53.1 Weakness; H02.403 Unspecified ptosis of bilateral eyelids; R50.9 Fever, unspecified; Z87.891 Personal history of nicotine dependence; Z82.49 Family history of ischemic heart disease and other diseases of the circulatory system; Z86.79 Personal history of other diseases of the circulatory system; Z98.61 Coronary angioplasty status
CPT/HCPCS: 36415; 36416; 36592; 70450; 70551; 71045; 71275; 74177; 80048; 80053; 80061; 80162; 80202; 80500; 81003; 82274; 82607; 82728; 82746; 82962; 83036; 83605; 83615; 83880; 84145; 84443; 84484; 85025; 85362; 85378; 85384; 85610; 85651; 85730; 86140; 86403; 86618; 86666; 86757; 86803; 87040; 87086; 87340; 87449; 87641; 87804; 87806; 93005; 93306; 96365; 96367; 96372; 97161; 97530; 99291; G0378; J0696; J1650; J2405; J2543; J3370; J3490; J7050; Q9967

== ENCOUNTER → 2021-07-15 14:39 | Outpatient (BNVA) | payer MEDICARE, SELFPAY | PROVIDERS: PCP Nurse Practitioner; Visit Provider Nurse Practitioner Family | DX: I48.19 Other persistent atrial fibrillation (principal); I11.0 Hypertensive heart disease with heart failure; I50.9 Heart failure, unspecified; Z87.891 Personal history of nicotine dependence | CPT/HCPCS: 99214 ==

== ENCOUNTER 2021-09-11 13:05 | Outpatient (CLI) | payer MEDICARE, SELFPAY ==
--- NOTE | 2021-09-11 13:30 | USCV_ITS ---
Bud Corona Age: 76 Gender: M : 1945 Exam Date: 09/11/2021 13:40 Ordering Phys: Clementine Paul Technologist: Edison Mercado Exam Location: [facility] [place] Indication: lt side endart Risk Factors: Previous Vascular Surgery: Right Brachial BP: / Left Brachial BP: / Right Left Velocity (cm/s) Spectral Plaque Velocity (cm/s) Spectral Plaque Syst/Diast Broadening Syst/Diast Broadening 100.30/5.50 Prox CCA 48.40 / 4.00 79.40/ 9.90 Mid CCA 45.20 / 5.60 71.70/ 12.10 Homo Distal CCA 62.10 / 3.40 66.70/ 5.60 Hetro Prox ICA 68.80 / 6.20 69.80/ 10.30 Mid ICA 66.50 / 8.90 73.80/ 7.10 Distal ICA 68.20 / 9.50 81.70 ECA 64.30 0.74 ICA/CCA 1.11 Antegrade Vertebral Antegrade 36.50/ 5.60 cm/s 48.60/ 5.00 cm/s Bi Subclavian Bi 102.4 89.50 0 CONCLUSIONS Intimal thickening in the common carotid arteries Right ICA stenosis <50%. Mild atheromatous plaque right carotid bulb/ICA. Left ICA stenosis <50%. Mild atheromatous plaque left carotid bulb/ICA. Normal antegrade Doppler flow noted in the right vertebral artery. Normal antegrade Doppler flow noted in the left vertebral artery. Matthew Perez MD (Electronically Signed) Final Date: 11 September 2021 17:34 S
--- NOTE | 2021-09-11 14:30 | USCV_ITS ---
Cj Bud Age: 76 Gender: M : 1945 Exam Date: 09/11/2021 13:25 Ordering Phys: Clementine Paul Technologist: Edison Mercado [place] [facility] [place] Indication: aortic insuff BP: / HR: 61 Rhythm: Sinus Technical Quality: Adequate MEASUREMENTS (Male / Female) Normal Values 2D ECHO LV Diastolic Diameter PLAX 4.0 cm 4.2 - 5.9 / 3.9 - 5.3 cm LV Systolic Diameter PLAX 2.6 cm IVS Diastolic Thickness 1.1 cm 0.6 - 1.0 / 0.6 - 0.9 cm IVS Systolic Thickness 1.3 cm LVPW Diastolic Thickness 1.2 cm 0.6 - 1.0 / 0.6 - 0.9 cm LVPW Systolic Thickness 1.2 cm LVOT Diameter 2.0 cm LV Ejection Fraction 2D Teich 66.4 % LA Diameter 5.1 cm Aorta at Sinotubular Diameter 2.8 cm IVC Diameter 1.3 cm DOPPLER AV Peak Velocity 181.3 cm/s LVOT Peak Velocity 108.7 cm/s AV Area Cont Eq vti 2.3 cm squared AV Area Cont Eq pk 2.0 cm squared MV Area PHT 5.0 cm squared Mitral E to A Ratio 1.8 MV E' Velocity 64.4 cm/s Mitral E to MV E' Ratio 6.8 Mitral E to LV E' Lateral Ratio 6.2 Mitral E to LV E' Septal Ratio 7.7 TR Peak Velocity 285.3 cm/s TR Peak Gradient 32.6 mmHg TV Peak E Velocity 189.0 cm/s Right Atrial Pressure 3.0 mmHg Pulmonary Artery Systolic Pressu 35.6 mmHg FINDINGS Left Ventricle Left ventricle is normal in size. LV systolic function is normal with EF 55 to 60%. No regional wall motion abnormalities are seen. Diastolic function is indeterminate because of atrial fibrillation Right Ventricle RV is normal in size and function. Right Atrium Enlarged Left Atrium Left atrium is dilated Mitral Valve Normal in structure. Mild mitral regurgitation Aortic Valve Aortic valve is mildly thickened. No significant aortic stenosis is noted. Moderate aortic regurgitation is seen. Tricuspid Valve Mild tricuspid regurgitation is seen. Pulmonic Valve Mild pulmonic regurgitation is seen. Pericardium Normal Aorta Normal in size IVC CONCLUSIONS LV systolic function is normal with EF 55 to 60%. Diastolic function is indeterminate because of atrial fibrillation. Biatrial enlargement. Mild mitral regurgitation Moderate aortic regurgitation is seen. Mild tricuspid regurgitation noted. Mild pulmonic regurgitation. Compared to prior echocardiogram from 07/11/2020, no significant change is seen. Mauricio Carrera MD (Electronically Signed) Final Date: 24 September 2021 19:32 S
== END 2021-09-11 13:06 | disposition home or self-care (01) ==
PROVIDERS: PCP Nurse Practitioner; Visit Provider Nurse Practitioner Family
DX: I65.23 Occlusion and stenosis of bilateral carotid arteries (principal); I48.91 Unspecified atrial fibrillation; I08.3 Combined rheumatic disorders of mitral, aortic and tricuspid valves
CPT/HCPCS: 93306; 93880

== ENCOUNTER 2021-09-19 10:38 | Emergency (ER) | payer MEDICARE, SELFPAY ==
[2021-09-19 11:01] VITALS: BP 155/54; PULSE 62; RESP 18; O2SAT 99; BMI 24.2
[2021-09-19 11:37] VITALS: BP 144/63; PULSE 56; RESP 16; TEMP 36.6; O2SAT 98
--- NOTE | 2021-09-19 12:13 | W.ED.GENADLT ---
HPI - General Adult General: Chief complaint: Eye Problems Stated complaint: eye injury Time Seen by Provider: 09/19/21 11:31 History of Present Illness: Patient is a 76-year-old male presenting to the emergency room with complaints of right eye pain and foreign object sensation. Patient notes me this started 2 days ago when he was chopping wood. Patient thinks that there may be a piece of wood or metal or some sort of debris in his eye. Since the patient has had blurriness of vision in the right eye with eye pain and foreign object sensation. Patient denies any visual acuity changes. Patient denies any diplopia. No other focal complaints including drainage or itchiness from the eye. There is no pain vision changes or erythema of the left eye. No other focal complaints at this time. Denies any other injuries. Patient is tolerating anticoagulation. Onset:2 days ago Duration:2 days Location:home Severity:moderate Associated symptoms: Deny chest pain, dyspnea, nausea, rash, palpitations or vomiting Review of Systems Const: Denies: fever(s) or chills Eyes: Reports: eye redness and other (+R eye pain); Denies: change in vision ENMT: Denies: mouth pain Card: Denies: chest pain or palpitations Resp: Denies: dyspnea or non-productive cough GI: Denies: abdominal pain, nausea, vomiting or diarrhea : Denies: dysuria Musc: Denies: extremity pain Skin/Breast: Denies: rash or new lesions Neuro: Denies: weakness in extremities Psych: Reports: other (Normal mood) Deny/Lymph: Denies: easy bruising PFS ED PFSH: Medical History Atrial fibrillation CHF (congestive heart failure) Surgical History H/O carotid endarterectomy 2009 S/P hernia repair S/P PTCA (percutaneous transluminal coronary angioplasty) Family History Father Hypertension CAD (coronary artery disease) Social History Smoking and tobacco status: former smoker Alcohol intake: never Housing: House Physical Exam Const: COMMON NORMALS: alert HENMT: COMMON NORMALS: atraumatic HEAD & SCALP: atraumatic MOUTH: moist mucous membranes not abnormal Eye: COMMON NORMALS: EOMs intact bilaterally and conjunctivae normal CONJUNCTIVA: Yes conjunctivae normal OTHER: 20/20 vision b/l Flurosceine exam showed _ Tonopen pressure of _ Neck/C-Spine: COMMON NORMALS: full ROM and supple Resp: COMMON NORMALS: normal respiratory effort and clear to auscultation bilaterally AUSCULTATION: clear to auscultation bilaterally Cardio: COMMON NORMALS: regular rate RATE: regular rate GI: COMMON NORMALS: Soft to palpation and non-tender PALPATION: Yes Soft to palpation Extremity: COMMON NORMALS: full ROM Neuro: SENSORIUM/ORIENTATION: Yes alert MOTOR EXAM: No Abnormal motor strength present and Other motor observations present (no focal motor deficits) Psych: COMMON NORMALS: speech normal SPEECH: Yes normal speech MOOD & AFFECT: Yes euthymic mood Course Vital Signs: Vital signs: Vital Signs Temperature 97.8 F 09/19/21 13:12 Pulse Rate 56 L 09/19/21 13:12 Respiratory Rate 16 09/19/21 13:12 Blood Pressure 144/63 09/19/21 13:12 Pulse Oximetry 98 09/19/21 13:12 Oxygen Delivery Me thod 09/19/21 11:37 MDM - General Adult Medical Decision Making 76-year-old male with a history of atrial fibrillation on Wednesday and CHF presenting to the emergency room for concerns of right eye pain and injection. Patient on physical exam has normal vision. We are unable to perform a fluorescein exam and is with our Anderson lamp is not working. R eye pressure of 13mmHg. Discussed case with Dr. Bud [facility] who recommended having patient be seen at the [facility] in the next 2 hours. Given patient instructions to be seen by Dr. Bud [facility] later this afternoon and patient reassures me he will go to the clinic. Disposition: Discharge. Patient counseled regarding diagnostic impression, treatment plan. Patient given ED strict return precautions to return for continuation, worsening, or development of new symptoms. Instructed to f/u w/ Ophthalmology regarding symptoms today. Patient verbalized understanding. Discharge Plan Discharge Patient Disposition: Home Clinical Impression: Conjunctivitis of right eye, Acute eye pain Condition: Stable Prescriptions: No Action ginkgo biloba 40 mg tablet 40 mg PO TID Rx Instructions: give with meal/snack diltiazem HCl 240 mg capsule,extended release 24hr 240 mg PO DAILY Qty: 90 3RF digoxin 125 mcg (0.125 mg) tablet 125 mcg PO DAILY Qty: 90 3RF garlic 1,500 mg capsule 1,500 mg PO DAILY multivitamin Tablet 1 tab PO DAILY cannabidiol 100 mg/mL solution 50 - 100 mg PO DAILY PRN (Reason: Sleep) Rx Instructions: takes at hs to assist with sleep hawthorn 500 mg capsule 500 mg PO DAILY PRN cholecalciferol (vitamin D3) 50 mcg (2,000 unit) capsule 2,000 unit PO DAILY ascorbic acid (vitamin C) 500 mg capsule 2,000 mg PO DAILY Discharge Orders: Discharge ED (Routine); Ordered 09/19/21 Ordered By: Reynold Hodges Referrals: Magaly Agee FNP [Primary Care Provider] - Discharge Diet: Advance as tolerated Discharge Activity: Increase activity as tolerated Patient Instructions: Eye Pain (ED) Activity Restrictions/Additional Instructions: Please go to the [facility] at [address] [place] [id number] Coding Level of Care Code ED Foxpro Developer for Chg Fwd Exam Comprehensive
[2021-09-19 13:12] VITALS: BP 144/63; PULSE 56; RESP 16; TEMP 36.6; O2SAT 98
== END 2021-09-19 13:12 | disposition home or self-care (01) ==
PROVIDERS: Emergency Provider Emergency Medicine; PCP Nurse Practitioner
DX: H10.9 Unspecified conjunctivitis (principal); I50.9 Heart failure, unspecified; Z87.891 Personal history of nicotine dependence
CPT/HCPCS: 99281

== ENCOUNTER → 2021-09-30 11:12 | Outpatient (BNVA) | payer MEDICARE, SELFPAY | PROVIDERS: PCP Nurse Practitioner; Visit Provider Internal Medicine Cardiovascular Disease | DX: I11.0 Hypertensive heart disease with heart failure (principal); I50.9 Heart failure, unspecified; I48.19 Other persistent atrial fibrillation; I35.1 Nonrheumatic aortic (valve) insufficiency; Z87.891 Personal history of nicotine dependence | CPT/HCPCS: 99214 ==

== ENCOUNTER 2022-02-06 05:57 | Emergency (ER) | payer MEDICARE, SELFPAY ==
[2022-02-06] VITALS (8 sets, daily range): BP systolic 152–183; BP diastolic 73–89; PULSE 83–92; RESP 12–18; TEMP 36.6; O2SAT 90–97; BMI 22.3
--- NOTE | 2022-02-06 06:14 | XRR_ITS ---
PROCEDURE INFORMATION: Exam: XR Chest Exam date and time: 02/06/2022 6:22 AM Age: 76 years old Clinical indication: Other: Heart palpitations, diaphoresis; Additional info: Weakness TECHNIQUE: Imaging protocol: Radiologic exam of the chest. Views: 1 view. Total images: 199 COMPARISON: CR XR chest 1V portable [id number] 07/21/2020 6:06 PM FINDINGS: Lungs: Unremarkable. No consolidation. Pleural spaces: Unremarkable. No pleural effusion. No pneumothorax. Heart/Mediastinum: Mild cardiomegaly stable. Vasculature: Atherosclerosis is evident. Bones/joints: Unremarkable. XR/XR chest 1V portable [id number] IMPRESSION: 1. Mild cardiomegaly stable. 2. No acute cardiopulmonary process.
--- NOTE | 2022-02-06 06:15 | ECG_ITS ---
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 Measurements Intervals [place] Rate: 89 P: 0 SD: 0 QRS: -78 QRSD: 114 T: 76 QT: 352 QTc: 429 Interpretive Statements ATRIAL FIBRILLATION LEFT AXIS DEVIATION [QRS AXIS < -30] SEPTAL MYOCARDIAL INFARCTION , OF INDETERMINATE AGE [40+ ms Q WAVE IN V1/V2] Compared to ECG 07/22/2020 01:32:55 Left-axis deviation now present Incomplete right bundle-branch block no longer present Left anterior fascicular block no longer present Myocardial infarct finding still present Electronically Signed On 02-06-2022 13:46:53 SOLVENT MIXER by Mauricio Carrera M.D. [email or web address]
--- NOTE | 2022-02-06 06:19 | ED_ITS ---
HPI - Nausea/Vomiting/Diarrhea General: Chief complaint: Nausea/Vomiting/Diarrhea Stated complaint: vomitting, chest pain, palpations Time Seen by Provider: 02/06/22 06:00 History of Present Illness: 76-year-old male arrives by private vehicle along with his with chief complaint of weakness, nausea, vomiting, and episode of inability to control a bowel movement. History is given by the patient and the . They are quick to note that this is happened before whenever his atrial fibrillation is out of control. notes that he is in chronic A. fib and usually if his blood pressure is too high or his heart rate is too high he will have symptoms like this. Last night he started having symptoms around dinnertime where he becomes nauseated and ashen and ends up vomiting. says he is usually able to ambulate unassisted but is currently so weak that he requires help. The patient denies fever, headache, chills, URI symptoms, cough, shortness of breath, syncope, chest pain, palpitations, abdominal pain, bloody stools, dysuria, hematuria. They report there are people around their block that have flulike symptoms. However, they are refusing flu and COVID swabs. Patient has been losing weight which he says is intentional and his says is unintentional. He does not participate in colonoscopy screening and has not had any work-up for his weight loss. Additionally, the states that his blood pressure has been extremely variable going from very high to very low and that he seems to be developing a tremor. The patient states that he has no problems with his gait or muscle control. He does not endorse any falls or muscle stiffness. His tremor has never been worked up. says his tremor gets worse when he gets sick, like today. Associated nausea: Yes Associated symtoms: Reports nausea; Denies altered mental status, change in vision, chest pain, dysuria, headache(s), palpitations or syncope Review of Systems General: Reports: 10 or more systems reviewed and unremarkable except in HPI and below Const: Reports: change in appetite and change in weight; Denies: fever(s), chills, body aches or night sweats Eyes: Denies: change in vision ENMT: Denies: throat pain, nasal discharge or nasal congestion Card: Reports: irregular heart rhythm; Denies: chest pain, palpitations, edema, swelling of feet/ankles or syncope Resp: Denies: dyspnea, productive cough, wheezing, hemoptysis or chest congestion GI: Reports: nausea, vomiting and diarrhea; Denies: abdominal pain, hematemesis, coffee ground emesis, hematochezia or melena : Denies: flank pain, dysuria, urinary frequency or urinary urgency Musc: Denies: neck pain, back pain, extremity pain or extremity swelling Skin/Breast: Denies: rash or erythema Neuro: Reports: difficulty walking (Starting in last 24 hours he is feeling weak and says he was having so) and other (Tremors); Denies: headache(s), numbness in extremities, lack of coordination, confusion or behavioral changes PFSH ED PFSH: Medical History (Updated 02/06/22 @ 06:21 by Marcelino Gastelum MD) Aortic regurgitation Atrial fibrillation Carotid artery disease CHF (congestive heart failure) Surgical History H/O carotid endarterectomy 2008 S/P hernia repair S/P PTCA (percutaneous transluminal coronary angioplasty) Family History Father Hypertension CAD (coronary artery disease) Social History Smoking and tobacco status: former smoker Alcohol intake: never Housing: House Physical Exam Const: COMMON NORMALS: no limitations and alert EXAM LIMITATIONS: no altered mental status NUTRITIONAL APPEARANCE: underweight HENMT: COMMON NORMALS: normocephalic, atraumatic and external ears normal HEAD & SCALP: normocephalic and atraumatic EXTERNAL EAR: Yes external ears normal MOUTH: no muffled voice Eye: COMMON NORMALS: EOMs intact bilaterally, conjunctivae normal and no scleral icterus CONJUNCTIVA: Yes conjunctivae normal Neck/C-Spine: COMMON NORMALS: no JVD GENERAL: Yes normal visual inspection and Yes trachea midline Resp: COMMON NORMALS: normal respiratory effort, No use of accessory muscles and clear to auscultation bilaterally AUSCULTATION: clear to auscultation bilaterally Cardio: COMMON NORMALS: no JVD and regular rate RATE: regular rate RHYTHM: abnormal rhythm HEART SOUNDS: no murmurs PERIPHERAL PULSES: radial pulses present GI: COMMON NORMALS: Soft to palpation and non-tender PALPATION: Yes Soft to palpation and No Guarding due to palpation present (GI) Extremity: COMMON NORMALS: normal to inspection Neuro: COMMON NORMALS: moves all extremities, no focal motor deficits and no sensory deficits noted SENSORIUM/ORIENTATION: Yes alert SPEECH: speech normal MOTOR EXAM: Tremors during motor activity present Psych: COMMON NORMALS: mental status grossly normal, Normal thought process present, cooperative, normal affect and speech normal SPEECH: Yes normal speech THOUGHT PROCESS: Normal thought process present Skin: COMMON NORMALS: no rashes or lesions noted and no jaundice GENERAL SKIN EXAM: no rashes or lesions noted Course Vital Signs: Vital signs: Vital Signs Temperature 97.8 F 02/06/22 06:04 Pulse Rate 87 02/06/22 06:04 Respiratory Rate 16 02/06/22 06:04 Blood Pressure 183/89 02/06/22 06:04 Pulse Oximetry 97 02/06/22 06:04 Oxygen Delivery Me thod 02/06/22 06:04 MDM - Nausea/Vomiting/Diarrhea Medical Decision Making Patient presents with weakness, nausea, episode of vomiting, episode of stool incontinence. Other notable findings are unintentional weight loss and increased tremor without any obvious parkinsonian features. Patient has been reportedly around some individuals who have flulike symptoms but does not want any flu or COVID testing as he believes that they could cause him to get ill. He has not had colonoscopy, upper endoscopy, or other work-up for his weight loss. His blood pressure is elevated on arrival and notes that it varies from quite high to sometimes low, possibly suggesting some autonomic dysfunction or fluid changes. Patient does take digoxin and a level has been ordered. CXR with mild hyperexpansion but I didn't find any other notable findings. EKG shows atrial fibrillation with left axis deviation, incomplete left bundle branch block, possible prior anterior infarct, a few nonspecific T wave changes, no concerning J-point elevations or depressions. UPDATE: Labs including CBC, CMP, urinalysis, TSH are all reassuring. CT scan of the abdomen pelvis does show what appears to be cholelithiasis but there is no evidence of cholecystitis. This would be a potential source of nausea and vomiting. Patient's digoxin level is on the low end of normal. His atrial fibrillation is rate controlled. Second EKG was performed and is unchanged. BP down to 152/82. At this point the patient can be discharged from the emergency department with instructions to follow-up outpatient for both cholelithiasis as well as unintentional weight loss, hypertension, and his tremor. Lab Data Labs are unremarkable. 02/06/22 06:15 02/06/22 06:15 Radiology Impressions Chest X-Ray 02/06/22 06:14 IMPRESSION: 1. Mild cardiomegaly stable. 2. No acute cardiopulmonary process. Abdomen/Pelvis CT 02/06/22 06:33 IMPRESSION: 1. Cardiomegaly. 2. Cholelithiasis is present without cholecystitis. No gallbladder wall thickening or pericholecystic fluid collection. COMMENTS: Consistent with the [employer]'s Incidental Findings Committee white paper (J Am Dangelo Radiol 2018): Any incidental renal lesion less than 1 cm or classified as too small to characterize, or any incidental cystic renal lesion characterized as simple-appearing, is likely benign. No follow-up imaging is recommended for these lesions per consensus recommendations based on imaging criteria. Laboratory Results WBC 7.7 10^3/uL (4.0-10.0) 02/06/22 06:15 RBC 5.55 10^6/uL (4.1-5.3) H 02/06/22 06:15 Hgb 15.9 g/dL (11.7-16.6) 02/06/22 06:15 Hct 48.9 % (42.0-52.0) 02/06/22 06:15 MCV 88.1 fl (80-94) 02/06/22 06:15 MCH 28.6 pg (28.0-34.0) 02/06/22 06:15 MCHC 32.5 g/dL (30.0-36.0) 02/06/22 06:15 RDW 14.9 % (12.1-15.1) 02/06/22 06:15 Plt Count 148 10^3/cmm (130-400) 02/06/22 06:15 MPV 12.2 fL (7.4-10.4) H 02/06/22 06:15 Neut % (Auto) 70.4 % 02/06/22 06:15 Lymph % (Auto) 18.1 % 02/06/22 06:15 [place] % (Auto) 10.9 % 02/06/22 06:15 Eos % (Auto) 0.0 % 02/06/22 06:15 Baso % (Auto) 0.3 % 02/06/22 06:15 Neut # (Auto) 5.46 10^3/uL (1.8-7.7) 02/06/22 06:15 Lymph # (Auto) 1.4 10^3/uL (0.8-4.8) 02/06/22 06:15 [place] # (Auto) 0.8 10^3/uL (0.2-0.9) 02/06/22 06:15 Eos # (Auto) 0.0 10^3/uL (0.0-0.8) 02/06/22 06:15 Baso # (Auto) 0.0 10^3/uL (0.0-0.1) 02/06/22 06:15 Nucleated RBC % (auto) 0 % 02/06/22 06:15 Nucleated RBCs # 0.0 /100WBC 02/06/22 06:15 Sodium 136 mmol/L (136-145) 02/06/22 06:15 Potassium 4.4 mmol/L (3.5-5.1) 02/06/22 06:15 Chloride 98 mmol/L (98-107) 02/06/22 06:15 Carbon Dioxide 27 mmol/L (22-29) 02/06/22 06:15 Anion Gap 15.4 (5-19) 02/06/22 06:15 BUN 13 mg/dL (8-23) 02/06/22 06:15 Creatinine 0.9 mg/dL (0.7-1.2) 02/06/22 06:15 GFR Calculation Not Reportable 02/06/22 06:15 Glucose 100 mg/dL (65-115) 02/06/22 06:15 Calculated Osmolality 282 mOsm/kg (285-295) L 02/06/22 06:15 Calcium 9.2 mg/dL (8.5-10.5) 02/06/22 06:15 Total Bilirubin 0.7 mg/dL (0.15-1.2) 02/06/22 06:15 AST 18 U/L (0-40) 02/06/22 06:15 ALT 12 U/L (0-41) 02/06/22 06:15 Alkaline Phosphatase 90 U/L (40-130) 02/06/22 06:15 Troponin T Baseline 14 ng/L (0-15) 02/06/22 06:15 Troponin T 120 Minute 11.88 ng/L (0-15) 02/06/22 08:19 Total Protein 7.7 g/dL (6.6-8.7) 02/06/22 06:15 Albumin 4.3 g/dL (3.5-5.2) 02/06/22 06:15 Globulin 3.4 g/dL (1.3-4.6) 02/06/22 06:15 Lipase 26 U/L (13-60) 02/06/22 06:15 TSH 1.80 uIU/mL (0.27-4.20) 02/06/22 06:15 Urine Color Yellow (Yellow) 02/06/22 07:47 Urine Appearance Clear (CLEAR) 02/06/22 07:47 Urine pH 7 (5-7) 02/06/22 07:47 Ur Specific [place] 1.010 (1.005-1.030) 02/06/22 07:47 Urine Protein Neg (Negative) 02/06/22 07:47 Urine Glucose (UA) Norm (Normal) 02/06/22 07:47 Urine Ketones 1+ (Negative) H 02/06/22 07:47 Urine Blood Neg (Negative) 02/06/22 07:47 Urine Nitrate Negative (Negative) 02/06/22 07:47 Urine Bilirubin Neg (Negative) 02/06/22 07:47 Urine Urobilinogen Neg mg/dL (Negative) 02/06/22 07:47 Ur Leukocyte Esterase Negative (Negative) 02/06/22 07:47 Digoxin 0.6 ng/mL (0.6-1.2) 02/06/22 06:15 Imaging Data CXR: My impression: Mild hyperexpansion, no concerning focal infiltrates, effusions, pneumothorax. Normal cardiomediastinal silhouette, probable osteopenia EKG Data EKG 1: Interpretation: EKG shows atrial fibrillation with left axis deviation, incomplete left bundle branch block, possible prior anterior infarct, a few nonspecific T wave changes, no concerning J-point elevations or depressions. Discharge Plan Discharge Clinical Impression: Recent unintentional weight loss over several months, Nausea vomiting and diarrhea, Requires follow-up, Atrial fibrillation, chronic Condition: Stable Prescriptions: No Action ginkgo biloba 40 mg tablet 40 mg PO TID Rx Instructions: give with meal/snack garlic 1,500 mg capsule 1,500 mg PO DAILY multivitamin Tablet 1 tab PO DAILY cannabidiol 100 mg/mL solution 50 - 100 mg PO DAILY PRN (Reason: Sleep) Rx Instructions: takes at hs to assist with sleep hawthorn 500 mg capsule 500 mg PO DAILY PRN cholecalciferol (vitamin D3) 50 mcg (2,000 unit) capsule 2,000 unit PO DAILY ascorbic acid (vitamin C) 500 mg capsule 2,000 mg PO DAILY digoxin 125 mcg (0.125 mg) tablet 125 mcg PO DAILY Qty: 90 3RF diltiazem HCl 240 mg capsule,extended release 24hr 240 mg PO DAILY Qty: 90 3RF Referrals: Magaly Agee FNP [Primary Care Provider] - Coding Level of Care Code ED Contractor [employer] for Chg Fwd Exam Comprehensive
[2022-02-06] MEDS: dilTIAZem ER (12HR) 60 mg Capsule 120 MG PO (06:27)
[2022-02-06] MEDS: cloNIDine 0.1 mg Tablet PO (06:27)
[2022-02-06] MEDS: aspirin 81 mg Chew Tablet 324 MG PO (06:27)
[2022-02-06] MEDS: sodium chloride 0.9% 1,000 ML 999 ML IV (06:28)
[2022-02-06 06:32] LABS: Basophils % 0.3 %; Hematocrit 48.9 % (42.0-52.0); Hemoglobin 15.9 g/dL (11.7-16.6); Lymphocytes # 1.4 10^3/uL (0.8-4.8); Lymphocytes % 18.1 %; Mean Corpuscular HGB Conc 32.5 g/dL (30.0-36.0); Mean Corpuscular Hemoglobin 28.6 pg (28.0-34.0); Mean Corpuscular Volume 88.1 fl (80-94); Mean Platelet Volume 12.2 fL (7.4-10.4); Monocytes # 0.8 10^3/uL (0.2-0.9); Monocytes % 10.9 %; Neutrophils # 5.46 10^3/uL (1.8-7.7); Neutrophils % 70.4 %; Nucleated Red Blood Cells % 0 %; Platelet Count 148 10^3/cmm (130-400); Red Blood Count 5.55 10^6/uL (4.1-5.3); Red Cell Distribution Width 14.9 % (12.1-15.1); White Blood Count 7.7 10^3/uL (4.0-10.0)
--- NOTE | 2022-02-06 06:33 | CTR_ITS ---
PROCEDURE INFORMATION: Exam: CT Abdomen And Pelvis With Contrast Exam date and time: 02/06/2022 7:00 AM Age: 76 years old Clinical indication: Nausea and vomiting; Prior surgery; Surgery type: Hernia; Additional info: Weight loss, unintentional, n/v/d TECHNIQUE: Imaging protocol: Computed tomography of the abdomen and pelvis with contrast. Total images: 1 Radiation optimization: All CT scans at this facility use at least one of these dose optimization techniques: automated exposure control; mA and/or kV adjustment per patient size (includes targeted exams where dose is matched to clinical indication); or iterative reconstruction. Contrast material: OMNI 350; Contrast volume: 100 ml; Contrast route: INTRAVENOUS (IV); COMPARISON: CT angio chest w abd pel w con 07/22/2020 3:09 PM RADIATION DOSE METRICS: Total DLP (mGy-cm): 355.29 FINDINGS: Heart: Cardiomegaly. Diaphragm: A small hiatal hernia is present. Liver: Benign liver granulomas. 2.3 cm largest cyst noted in a liver that has multiple simple liver cysts. No further evaluation required. Gallbladder and bile ducts: Cholelithiasis is present without cholecystitis. No gallbladder wall thickening or pericholecystic fluid collection. Pancreas: Normal. No ductal dilation. Spleen: Incidental splenic granulomata are noted. Adrenal glands: Normal. No mass. Kidneys and ureters: Renal cortical scarring is noted. 1.7 cm largest cyst noted in kidneys that have multiple simple renal cysts. No further evaluation required. Stomach and bowel: Incidental duodenal diverticulum noted. Appendix: No evidence of appendicitis. Intraperitoneal space: Unremarkable. No free air. No significant fluid collection. Vasculature: Incidental phleboliths noted. Moderate atherosclerotic disease is evident. Lymph nodes: Unremarkable. No enlarged lymph nodes. Urinary bladder: Unremarkable as visualized. Reproductive: Unremarkable as visualized. Bones/joints: Unremarkable. No acute fracture. Soft tissues: Previously repaired right inguinal hernia. CT/CT abdomen pelvis w con* [id number] IMPRESSION: 1. Cardiomegaly. 2. Cholelithiasis is present without cholecystitis. No gallbladder wall thickening or pericholecystic fluid collection. COMMENTS: Consistent with the [employer]'s Incidental Findings Committee white paper (J Am Dangelo Radiol 2018): Any incidental renal lesion less than 1 cm or classified as too small to characterize, or any incidental cystic renal lesion characterized as simple-appearing, is likely benign. No follow-up imaging is recommended for these lesions per consensus recommendations based on imaging criteria.
[2022-02-06 06:52] LABS: Alanine Aminotransferase 12 U/L (0-41); Albumin Level 4.3 g/dL (3.5-5.2); Alkaline Phosphatase 90 U/L (40-130); Anion Gap 15.4 (5-19); Aspartate Amino Transferase 18 U/L (0-40); Blood Urea Nitrogen 13 mg/dL (8-23); Calcium 9.2 mg/dL (8.5-10.5); Carbon Dioxide 27 mmol/L (22-29); Chloride 98 mmol/L (98-107); Globulin 3.4 g/dL (1.3-4.6); Glucose 100 mg/dL (65-115); Lipase 26 U/L (13-60); Osmolality Calculated 282 mOsm/kg (285-295); Potassium 4.4 mmol/L (3.5-5.1); Sodium 136 mmol/L (136-145); Total Bilirubin 0.7 mg/dL (0.15-1.2); Total Protein 7.7 g/dL (6.6-8.7)
[2022-02-06] MEDS: iohexol 350 mg/mL 500 mL Btl (per mL) IV (07:01)
[2022-02-06 07:14] LABS: Troponin(5th) Baseline 14 ng/L (0-15)
[2022-02-06 07:30] LABS: Digoxin 0.6 ng/mL (0.6-1.2)
--- NOTE | 2022-02-06 08:02 | PC.NURSE ---
PT IS ON CONTINUOUS SPO2, NIBP, AND CM.
[2022-02-06 08:12] LABS: Add Urine Microscopic? NO; Urine Appearance Clear (CLEAR); Urine Color Yellow (Yellow); pH Urine 7 (5-7)
[2022-02-06 08:13] LABS: Bilirubin Urine Neg (Negative); Blood Urine Neg (Negative); Charge for UA Resulting for Rev; Glucose Urine UA Norm (Normal); Ketones Urine 1+ (Negative); Leukocyte Esterase Urine Negative (Negative); Nitrate Urine Negative (Negative); Protein Urine Neg (Negative); Urobilinogen Urine Neg (Negative)
--- NOTE | 2022-02-06 08:34 | ECG_ITS ---
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 Measurements Intervals [place] Rate: 84 P: 0 TN: 0 QRS: -76 QRSD: 117 T: 10 QT: 356 QTc: 421 Interpretive Statements ATRIAL FIBRILLATION WITH ABERRANT CONDUCTION OR VENTRICULAR PREMATURE COMPLEXES LEFT AXIS DEVIATION [QRS AXIS < -30] MODERATE INTRAVENTRICULAR CONDUCTION DELAY [105+ ms QRS DURATION, 80+ ms Q/S IN V1/V2, NO Q AND 60+ ms R IN I/aVL/V5/V6] Compared to ECG 07/22/2020 01:32:55 Ventricular premature complex(es) now present Aberrant conduction of supraventricular beat(s) now present Left-axis deviation now present Intraventricular conduction delay now present Incomplete right bundle-branch block no longer present Left anterior fascicular block no longer present Myocardial infarct finding no longer present Electronically Signed On 02-06-2022 13:51:39 [employer] by Mauricio Carrera M.D. [email or web address]
[2022-02-06 08:52] LABS: Troponin 5 2HR 11.88 ng/L (0-15)
[2022-02-06 09:02] LABS: Troponin 5 2HR Delta -2.12 ABS# (0-10)
== END 2022-02-06 09:25 | disposition home or self-care (01) ==
PROVIDERS: Emergency Provider Emergency Medicine; PCP Nurse Practitioner
DX: R11.2 Nausea with vomiting, unspecified (principal); R19.7 Diarrhea, unspecified; I48.20 Chronic atrial fibrillation, unspecified; R63.4 Abnormal weight loss; I50.9 Heart failure, unspecified; Z87.891 Personal history of nicotine dependence
CPT/HCPCS: 36415; 71045; 74177; 80053; 80162; 81003; 83690; 84443; 84484; 85025; 93005; 96360; 99285; J7030; Q9967

== ENCOUNTER → 2022-03-11 10:02 | Outpatient (BNVA) | payer MEDICARE, SELFPAY | PROVIDERS: PCP Nurse Practitioner; Visit Provider Nurse Practitioner Family | DX: I48.19 Other persistent atrial fibrillation (principal); Z87.891 Personal history of nicotine dependence; I11.0 Hypertensive heart disease with heart failure; I50.9 Heart failure, unspecified | CPT/HCPCS: 99214 ==

== ENCOUNTER 2022-03-25 13:12 | Emergency (ER) | payer MEDICARE, SELFPAY ==
[2022-03-25 13:26] VITALS: BP 165/71; PULSE 64; RESP 18; TEMP 37; O2SAT 95; BMI 23.9
[2022-03-25 13:31] VITALS: BP 185/72; PULSE 98; RESP 18; O2SAT 98
--- NOTE | 2022-03-25 13:44 | XRR_ITS ---
PROCEDURE INFORMATION: Exam: XR Left Foot Exam date and time: 03/25/2022 1:48 PM Age: 77 years old Clinical indication: Condition or disease; Other: Wound on great toe; Patient HX: Sore on lt big toe for 4 days TECHNIQUE: Imaging protocol: Radiologic exam of the Left foot. Views: 3 or more views. COMPARISON: No relevant prior studies available. FINDINGS: Bones/joints: Normal. Soft tissues: Normal. XR/XR foot LT min 3V* [id number] IMPRESSION: No acute findings.
--- NOTE | 2022-03-25 14:36 | W.ED.EXTPRO ---
HPI - Extremity Problem General: Chief complaint: Extremity Injury, Lower Stated complaint: Sore on Left foot Time Seen by Provider: 03/25/22 13:44 History of Present Illness: Patient is a 77-year-old male who comes to the ED with left big toe complaint. Patient has a history of peripheral neuropathy. Patient says approximately about a month ago he had an ingrown toenail that he tried to clip out himself. Today he went to his PCP doctor and they thought his toe looked a little discolored and told to come here to the ED for further evaluation. Denies any open wound, trauma or any other injury to left great toe. He denies any pain and says he cannot feel any sensation to the toe. Associated symptoms: Deny chest pain, fever(s) or rash Review of Systems Const: Denies: fever(s), chills or fatigue Eyes: Denies: change in vision or eye discomfort ENMT: Denies: throat pain, odynophagia, nasal discharge or nasal congestion Card: Denies: chest pain, palpitations, edema, swelling of feet/ankles, dyspnea on exertion or orthopnea Resp: Denies: dyspnea, productive cough or non-productive cough GI: Denies: abdominal pain, nausea, vomiting, diarrhea, constipation or hematochezia : Denies: flank pain, difficulty urinating, dysuria or hematuria Musc: Reports: extremity pain (left great toe); Denies: neck pain, back pain or extremity swelling Skin/Breast: Denies: rash or new lesions Neuro: Denies: headache(s), numbness in extremities or weakness in extremities [facility] ED PFSH: Medical History Aortic regurgitation Atrial fibrillation Carotid artery disease CHF (congestive heart failure) Surgical History H/O carotid endarterectomy 2009 S/P hernia repair S/P PTCA (percutaneous transluminal coronary angioplasty) Family History Father Hypertension CAD (coronary artery disease) Social History Smoking and tobacco status: former smoker Alcohol intake: never Housing: House Physical Exam Const: COMMON NORMALS: patient oriented x3 and alert HENMT: COMMON NORMALS: normocephalic HEAD & SCALP: normocephalic MOUTH: Normal oral and palatal mucosa present THROAT: posterior oropharynx normal and uvula midline Neck/C-Spine: COMMON NORMALS: supple GENERAL: Yes normal visual inspection Resp: COMMON NORMALS: normal respiratory effort, No retractions, No use of accessory muscles and clear to auscultation bilaterally AUSCULTATION: clear to auscultation bilaterally Cardio: COMMON NORMALS: regular rate, regular rhythm, S1 normal heart sound present, S2 normal heart sound present, No gallops present (Cardio), No clicks present (Cardio), No murmurs present (Cardio) and Peripheral pulses 2+ throughout RATE: regular rate RHYTHM: regular rhythm HEART SOUNDS: S1 normal heart sound present and S2 normal heart sound present PERIPHERAL PULSES: Peripheral pulses 2+ throughout GI: COMMON NORMALS: Normal to inspection, nondistended, normoactive bowel sounds present, Soft to palpation, non-tender and no masses PALPATION: Yes Soft to palpation : COMMON NORMALS: Yes no CVA tenderness BLADDER/KIDNEY EXAM: Yes no CVA tenderness Back/Pelvis: COMMON NORMALS: no CVA tenderness Extremity: COMMON NORMALS: normal to inspection NARRATIVE EXTREMITY EXAM: Patient has an ingrown toenail on the left toe. No erythema, warmth noted. No open wounds or sores seen. Neuro: COMMON NORMALS: patient oriented x3 SENSORIUM/ORIENTATION: Yes alert GAIT: Yes Normal gait present Skin: GENERAL SKIN EXAM: dry skin Course Vital Signs: Vital signs: Vital Signs Temperature 98.6 F 03/25/22 13:26 Pulse Rate 75 03/25/22 15:01 Respiratory Rate 18 03/25/22 13:31 Blood Pressure 166/67 03/25/22 15:01 Pulse Oximetry 96 03/25/22 16:12 Oxygen Delivery Me thod 03/25/22 15:01 MDM - Extremity (Nontraumatic) Medical Decision Making Patient is a 77-year-old male who comes to the ED with left big toe complaint. Patient has a history of peripheral neuropathy. Patient says approximately about a month ago he had an ingrown toenail that he tried to clip out himself. Today he went to his PCP doctor and they thought his toe looked a little discolored and told to come here to the ED for further evaluation. Denies any open wound, trauma or any other injury to left great toe. Vitals stable. Exam of patient is benign and he has an ingrown toenail on left great toe but rest of exam is benign and patient appears nontoxic in no acute distress or pain. Normal cap refill. Labs are unremarkable. Foot x-ray shows no acute findings. Patient was diagnosed with ingrown toenail and I placed an order with case management for patient referred to podiatry for follow-up. Return to ED precautions given. Patient understood and agreed with plan. Lab Data I reviewed the patient's lab results. 03/25/22 14:08 03/25/22 14:08 Radiology Impressions Foot X-Ray 03/25/22 13:44 IMPRESSION: No acute findings. Laboratory Results WBC 7.3 10^3/uL (4.0-10.0) 03/25/22 14:08 RBC 5.30 10^6/uL (4.1-5.3) 03/25/22 14:08 Hgb 15.3 g/dL (11.7-16.6) 03/25/22 14:08 Hct 46.5 % (42.0-52.0) 03/25/22 14:08 MCV 87.7 fl (80-94) 03/25/22 14:08 MCH 28.9 pg (28.0-34.0) 03/25/22 14:08 MCHC 32.9 g/dL (30.0-36.0) 03/25/22 14:08 RDW 15.1 % (12.1-15.1) 03/25/22 14:08 Plt Count 190 10^3/cmm (130-400) 03/25/22 14:08 MPV 11.9 fL (7.4-10.4) H 03/25/22 14:08 Neut % (Auto) 64.6 % 03/25/22 14:08 Lymph % (Auto) 25.4 % 03/25/22 14:08 Hidalgo % (Auto) 8.3 % 03/25/22 14:08 Eos % (Auto) 1.1 % 03/25/22 14:08 Baso % (Auto) 0.3 % 03/25/22 14:08 Neut # (Auto) 4.70 10^3/uL (1.8-7.7) 03/25/22 14:08 Lymph # (Auto) 1.9 10^3/uL (0.8-4.8) 03/25/22 14:08 Hidalgo # (Auto) 0.6 10^3/uL (0.2-0.9) 03/25/22 14:08 Eos # (Auto) 0.1 10^3/uL (0.0-0.8) 03/25/22 14:08 Baso # (Auto) 0.0 10^3/uL (0.0-0.1) 03/25/22 14:08 Nucleated RBC % (auto) 0 % 03/25/22 14:08 Nucleated RBCs # 0.0 /100WBC 03/25/22 14:08 ESR 7 mm/hr (0-10) 03/25/22 14:08 Sodium 139 mmol/L (136-145) 03/25/22 14:08 Potassium 3.8 mmol/L (3.5-5.1) 03/25/22 14:08 Chloride 101 mmol/L (98-107) 03/25/22 14:08 Carbon Dioxide 27 mmol/L (22-29) 03/25/22 14:08 Anion Gap 14.8 (5-19) 03/25/22 14:08 BUN 18 mg/dL (8-23) 03/25/22 14:08 Creatinine 0.8 mg/dL (0.7-1.2) 03/25/22 14:08 GFR Calculation Not Reportable 03/25/22 14:08 Glucose 90 mg/dL (65-115) 03/25/22 14:08 Calculated Osmolality 289 mOsm/kg (285-295) 03/25/22 14:08 Calcium 9.4 mg/dL (8.5-10.5) 03/25/22 14:08 Total Bilirubin 0.7 mg/dL (0.15-1.2) 03/25/22 14:08 AST 17 U/L (0-40) 03/25/22 14:08 ALT 15 U/L (0-41) 03/25/22 14:08 Alkaline Phosphatase 85 U/L (40-130) 03/25/22 14:08 C-Reactive Protein 3.0 mg/L (0.0-4.9) 03/25/22 14:08 Total Protein 7.6 g/dL (6.6-8.7) 03/25/22 14:08 Albumin 4.3 g/dL (3.5-5.2) 03/25/22 14:08 Globulin 3.3 g/dL (1.3-4.6) 03/25/22 14:08 Discharge Plan Discharge Patient Disposition: Home Clinical Impression: Ingrowing nail, left great toe Condition: Stable Prescriptions: No Action ginkgo biloba 40 mg tablet 40 mg PO TID Rx Instructions: give with meal/snack multivitamin Tablet 1 tab PO DAILY cannabidiol 100 mg/mL solution 50 - 100 mg PO DAILY PRN (Reason: Sleep) Rx Instructions: takes at hs to assist with sleep hawthorn 500 mg capsule 500 mg PO DAILY cholecalciferol (vitamin D3) 50 mcg (2,000 unit) capsule 2,000 unit PO DAILY ascorbic acid (vitamin C) 500 mg capsule 2,000 mg PO DAILY mother wort See Rx Instructions .ROUTE .COMPLEX Rx Instructions: orally as directed garlic See Rx Instructions .ROUTE .COMPLEX Rx Instructions: pts sts this is raw garlic apixaban 5 mg tablet 5 mg PO BID Qty: 180 2RF losartan 25 mg tablet 25 mg PO DAILY Qty: 90 3RF digoxin 125 mcg (0.125 mg) tablet 125 mcg PO DAILY Qty: 90 3RF diltiazem HCl 240 mg capsule,extended release 24hr 240 mg PO DAILY Qty: 90 3RF cephalexin 500 mg capsule 500 mg PO BID Discharge Orders: Discharge ED (Routine); Ordered 03/25/22 Ordered By: Macho Jon Referrals: Miladys Alanis FNP [Primary Care Provider] - Discharge Diet: Regular Discharge Activity: Increase activity as tolerated Patient Instructions: Ingrown Nail (ED) Activity Restrictions/Additional Instructions: Follow-up with medical provider as directed. Case management should be calling you in the next several days to set up appointment with podiatry for follow-up. Continue taking medications as previously prescribed. return to the ER or your medical provider if condition worsens. Please read and understand discharge instructions. Thank you for choosing [facility] for your healthcare needs today. Please realize this is an emergency room and that we are providing you with a medical screening exam and this may not be complete and all inclusive of all the testing and or work up that you may need to determine your ailment or severity of your illness. It is very important that you follow up as instructed or that you return to the Emergency Department should you have concerns or if your condition changes or worsens in any way. Coding Level of Care Code ED Ultrasound Applications Specialist for Nissa Fwd Exam Comprehensive
[2022-03-25 14:40] LABS: Basophils % 0.3 %; Eosinophils # 0.1 10^3/uL (0.0-0.8); Eosinophils % 1.1 %; Hematocrit 46.5 % (42.0-52.0); Hemoglobin 15.3 g/dL (11.7-16.6); Lymphocytes # 1.9 10^3/uL (0.8-4.8); Lymphocytes % 25.4 %; Mean Corpuscular HGB Conc 32.9 g/dL (30.0-36.0); Mean Corpuscular Hemoglobin 28.9 pg (28.0-34.0); Mean Corpuscular Volume 87.7 fl (80-94); Mean Platelet Volume 11.9 fL (7.4-10.4); Monocytes # 0.6 10^3/uL (0.2-0.9); Monocytes % 8.3 %; Neutrophils % 64.6 %; Nucleated Red Blood Cells % 0 %; Platelet Count 190 10^3/cmm (130-400); Red Cell Distribution Width 15.1 % (12.1-15.1); White Blood Count 7.3 10^3/uL (4.0-10.0)
[2022-03-25 14:45] LABS: Erythrocyte Sedimentation Rate 7 mm/hr (0-10)
[2022-03-25 14:54] LABS: Alanine Aminotransferase 15 U/L (0-41); Albumin Level 4.3 g/dL (3.5-5.2); Alkaline Phosphatase 85 U/L (40-130); Anion Gap 14.8 (5-19); Aspartate Amino Transferase 17 U/L (0-40); Blood Urea Nitrogen 18 mg/dL (8-23); Calcium 9.4 mg/dL (8.5-10.5); Carbon Dioxide 27 mmol/L (22-29); Chloride 101 mmol/L (98-107); Globulin 3.3 g/dL (1.3-4.6); Glucose 90 mg/dL (65-115); Osmolality Calculated 289 mOsm/kg (285-295); Potassium 3.8 mmol/L (3.5-5.1); Sodium 139 mmol/L (136-145); Total Bilirubin 0.7 mg/dL (0.15-1.2); Total Protein 7.6 g/dL (6.6-8.7)
[2022-03-25 15:01] VITALS: BP 166/67; PULSE 75; O2SAT 98
[2022-03-25 16:12] VITALS: O2SAT 96
--- NOTE | 2022-03-26 09:39 | DCPLANNER ---
Addendum entered by Esther Rojo 04/22/22 07:57: Patient had a follow up appointment scheduled with podiatry - patient did attend appointment Addendum entered by Esther Rojo 03/26/22 15:37: Patient has a follow up appointment scheduled for Thursday, April 07, 2022 at 10:[address] Pittman at [facility]. Clinic will call patient with appointment information. Original Note: agricultural equipment sales manager had message to schedule a follow up appointment for patient with podiatry. agricultural equipment sales manager sent patients information to the front office staff at podiatry. Patients information will be printed and reviewed. Clinic will call patient with appointment information.
== END 2022-03-25 16:13 | disposition home or self-care (01) ==
PROVIDERS: Emergency Provider Physician Assistant; PCP Nurse Practitioner Primary Care
DX: L60.0 Ingrowing nail (principal); I50.9 Heart failure, unspecified; Z87.891 Personal history of nicotine dependence
CPT/HCPCS: 36415; 73630; 80053; 85025; 85651; 86140; 87040; 99284

== ENCOUNTER → 2022-04-07 10:00 | Outpatient (BNVA) | payer MEDICARE, SELFPAY | PROVIDERS: PCP Nurse Practitioner Primary Care; Visit Provider Podiatrist Foot & Ankle Surgery | DX: I73.9 Peripheral vascular disease, unspecified (principal); L60.0 Ingrowing nail; B35.1 Tinea unguium; L60.3 Nail dystrophy | CPT/HCPCS: 11721; 99204 ==

== ENCOUNTER 2022-04-21 13:09 | Outpatient (CLI) | payer MEDICARE, SELFPAY ==
--- NOTE | 2022-04-21 13:25 | USCV_ITS ---
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 Normal resting EDITH and TBI on the high side, suggesting no significant arterial obstruction. 2. Normal resting EDITH on the left side with a markedly diminished resting TBI suggesting severe arterial obstruction involving the distal vessels of the left foot Dr Edwige Phan MD [facility] (Electronically Signed) Final Date: 22 April 2022 11:16 S
== END 2022-04-21 13:10 | disposition home or self-care (01) ==
LOC: RAD 13:12
PROVIDERS: PCP Nurse Practitioner Primary Care; Visit Provider Podiatrist Foot & Ankle Surgery
DX: R09.89 Other specified symptoms and signs involving the circulatory and respiratory systems (principal)
CPT/HCPCS: 93923

== ENCOUNTER → 2022-06-19 08:40 | Outpatient (BNVA) | payer MEDICARE, SELFPAY | PROVIDERS: PCP Nurse Practitioner Primary Care; Visit Provider Podiatrist Foot & Ankle Surgery | DX: I73.9 Peripheral vascular disease, unspecified (principal); L60.3 Nail dystrophy; B35.1 Tinea unguium; B35.3 Tinea pedis | CPT/HCPCS: 11721; 99213 ==

== ENCOUNTER 2022-09-02 09:30 | Outpatient (CLI) | payer MEDICARE, SELFPAY ==
--- NOTE | 2022-09-02 10:00 | USCV_ITS ---
Bud Corona Age: 77 Gender: M : 1945 Exam Date: 09/02/2022 10:03 Ordering Phys: Sabrina Graves MD ([email or web address]) Technologist: Exam Location: [facility] Indication: aortic regurg BP: 140 / 80 HR: 66 Rhythm: Sinus Technical Quality: Adequate MEASUREMENTS (Male / Female) Normal Values 2D ECHO LV Diastolic Diameter PLAX 4.9 cm 4.2 - 5.9 / 3.9 - 5.3 cm LV Systolic Diameter PLAX 3.1 cm IVS Diastolic Thickness 1.1 cm 0.6 - 1.0 / 0.6 - 0.9 cm IVS Systolic Thickness 1.2 cm LVPW Diastolic Thickness 1.1 cm 0.6 - 1.0 / 0.6 - 0.9 cm LVPW Systolic Thickness 1.6 cm LVOT Diameter 2.5 cm LV Ejection Fraction 2D Teich 66.8 % LA Diameter 4.8 cm IVC Diameter 2.0 cm M-MODE Aortic Annulus Diameter 3.5 cm LA Ao Ratio MM 1.5 MV E Point Septal Separation 0.8 cm DOPPLER AV Peak Velocity 179.0 cm/s LVOT Peak Velocity 97.0 cm/s AV Area Cont Eq vti 3.0 cm squared AV Area Cont Eq pk 2.6 cm squared MV Area PHT 5.0 cm squared Mitral E to A Ratio 1.4 MV E' Velocity 92.0 cm/s Mitral E to LV E' Septal Ratio 6.3 TR Peak Velocity 193.0 cm/s TR Peak Gradient 16.6 mmHg TV Peak E Velocity 81.0 cm/s Right Atrial Pressure 3.0 mmHg Pulmonary Artery Systolic Pressu 17.9 mmHg RV Acceleration Time 0.1 s FINDINGS Left Ventricle Normal left ventricular size, systolic function and wall thickness, with no regional wall motion abnormalities. Left ventricular ejection fraction is estimated at 55-60 %. Rhythm precludes evaluation of diastolic function. Right Ventricle Normal right ventricular size and systolic function. Right ventricular systolic pressure 24.6 mmHg. Right Atrium Severely increased right atrial size. Left Atrium Moderately increased left atrial size. Mitral Valve Moderately thickened mitral valve. No mitral valve stenosis. Mild mitral valve regurgitation. Aortic Valve Structurally normal trileaflet aortic valve. No aortic valve stenosis. Moderate to severe aortic valve regurgitation. Tricuspid Valve Structurally normal tricuspid valve. No tricuspid valve stenosis. Mild tricuspid valve regurgitation. Pulmonic Valve Structurally normal pulmonic valve. No pulmonary valve stenosis. Trace pulmonary valve regurgitation. Pericardium No pericardial effusion. Aorta Normal size aortic root and proximal ascending aorta. IVC Normal IVC dimension with >50% respiratory change of the inferior vena cava. CONCLUSIONS 1. Normal left ventricular size, systolic function and wall thickness, with no regional wall motion abnormalities. Left ventricular ejection fraction is estimated at 55-60 %. 2. Moderate to severe aortic valve regurgitation. 3. Mild mitral and tricuspid valve regurgitation. 4. When compared to study from last year , aortic valve regurgitation has worsened some. Sabrina Graves MD (Electronically Signed) Final Date: 10 September 2022 05:17 S
== END 2022-09-02 09:31 | disposition home or self-care (01) ==
LOC: RAD 09:34
PROVIDERS: PCP Nurse Practitioner Primary Care; Visit Provider Internal Medicine Cardiovascular Disease
DX: I35.1 Nonrheumatic aortic (valve) insufficiency (principal); I63.9 Cerebral infarction, unspecified; I48.91 Unspecified atrial fibrillation
CPT/HCPCS: 93306

== ENCOUNTER → 2022-09-21 09:04 | Outpatient (BNVA) | payer MEDICARE, SELFPAY | PROVIDERS: PCP Nurse Practitioner Primary Care; Visit Provider Podiatrist Foot & Ankle Surgery | DX: L60.8 Other nail disorders (principal); I73.9 Peripheral vascular disease, unspecified; B35.1 Tinea unguium; L60.3 Nail dystrophy | CPT/HCPCS: 11721 ==

== ENCOUNTER → 2022-09-29 10:31 | Outpatient (BNVA) | payer MEDICARE, SELFPAY | PROVIDERS: PCP Nurse Practitioner Primary Care; Visit Provider Internal Medicine Cardiovascular Disease | DX: I11.0 Hypertensive heart disease with heart failure (principal); I50.9 Heart failure, unspecified; I48.19 Other persistent atrial fibrillation; I35.1 Nonrheumatic aortic (valve) insufficiency; I77.9 Disorder of arteries and arterioles, unspecified; Z87.891 Personal history of nicotine dependence; Z79.01 Long term (current) use of anticoagulants | CPT/HCPCS: 99214 ==

== ENCOUNTER → 2022-11-27 09:25 | Outpatient (BNVA) | payer MEDICARE, SELFPAY | PROVIDERS: PCP Nurse Practitioner Primary Care; Visit Provider Podiatrist Foot & Ankle Surgery | DX: B35.1 Tinea unguium (principal); I73.9 Peripheral vascular disease, unspecified; L60.3 Nail dystrophy | CPT/HCPCS: 11721 ==

== ENCOUNTER → 2023-01-29 08:29 | Outpatient (BNVA) | payer MEDICARE, SELFPAY | PROVIDERS: PCP Nurse Practitioner Primary Care; Visit Provider Podiatrist Foot & Ankle Surgery | DX: I73.9 Peripheral vascular disease, unspecified (principal); L60.3 Nail dystrophy; B35.1 Tinea unguium | CPT/HCPCS: 11721; 99213 ==

== ENCOUNTER → 2023-02-19 10:06 | Outpatient (BNVA) | payer MEDICARE, SELFPAY | PROVIDERS: PCP Nurse Practitioner Primary Care; Visit Provider Podiatrist Foot & Ankle Surgery | DX: I73.9 Peripheral vascular disease, unspecified (principal); R09.89 Other specified symptoms and signs involving the circulatory and respiratory systems | CPT/HCPCS: 99213 ==

== ENCOUNTER → 2023-04-16 08:49 | Outpatient (BNVA) | payer MEDICARE, SELFPAY | PROVIDERS: PCP Nurse Practitioner Primary Care; Visit Provider Podiatrist Foot & Ankle Surgery | DX: L60.3 Nail dystrophy (principal); I73.9 Peripheral vascular disease, unspecified; R09.89 Other specified symptoms and signs involving the circulatory and respiratory systems | CPT/HCPCS: 11721 ==

== ENCOUNTER → 2023-07-02 10:08 | Outpatient (BNVA) | payer MEDICARE, SELFPAY | PROVIDERS: PCP Nurse Practitioner Primary Care; Visit Provider Podiatrist Foot & Ankle Surgery | DX: L60.3 Nail dystrophy (principal); I73.9 Peripheral vascular disease, unspecified; R09.89 Other specified symptoms and signs involving the circulatory and respiratory systems; L84 Corns and callosities | CPT/HCPCS: 11055; 11721 ==

== ENCOUNTER 2023-09-08 10:00 | Outpatient (CLI) | payer MEDICARE, SELFPAY ==
--- NOTE | 2023-09-08 10:00 | USCV_ITS ---
Bud Corona Age: 78 Gender: M : 1945 Exam Date: 09/08/2023 10:09 Ordering Phys: Clementine Paul Technologist: [place] [facility] [place] Indication: ao regurg,afib BP: 136 / 76 HR: 80 Rhythm: Sinus Technical Quality: Adequate MEASUREMENTS (Male / Female) Normal Values 2D ECHO LVOT Diameter 2.0 cm LV Ejection Fraction MOD 4C 56.3 % LV Ejection Fraction MOD 2C 60.0 % LV Ejection Fraction 2C AL 62.0 % LA Diameter 4.5 cm RA Systolic Volume 4C AL 78.3 ml RA Systolic Volume 4C MOD 75.6 ml LA Sys Volume AL 75.0 cm cubed LA Sys Volume Index AL 43.4 cm cubed/m squared Aorta at Sinotubular Diameter 2.5 cm IVC Diameter 2.5 cm M-MODE LA Ao Ratio MM 1.6 AV Cusp Separation MM 2.1 cm DOPPLER AV Peak Velocity 195.0 cm/s LVOT Peak Velocity 99.0 cm/s AV Area Cont Eq vti 2.5 cm squared AV Area Cont Eq pk 1.7 cm squared MV Peak Velocity 133.0 cm/s MV Area PHT 2.6 cm squared Mitral E to A Ratio 311.0 TV Peak Velocity 272.0 cm/s TR Peak Velocity 275.0 cm/s TR Peak Gradient 30.3 mmHg TR Mean Velocity 233.0 cm/s TR Mean Gradient 22.7 mmHg TR Velocity Time Integral 65.1 cm TV Peak E Velocity 99.0 cm/s Right Atrial Pressure 3.0 mmHg Pulmonary Artery Systolic Pressu 33.3 mmHg PV Peak Velocity 87.5 cm/s FINDINGS Left Ventricle Left ventricular ejection fraction is estimated at 55%. No regional wall motion abnormalities. Mild left ventricular hypertrophy. Right Ventricle The right ventricle is normal in size and function. Right Atrium Moderately increased right atrial size. Left Atrium Severely increased left atrial volume 43 ml/m squared. Mitral Valve Mild mitral valve regurgitation. Aortic Valve Thickened aortic valve. [id number]-riuvet aortic valve regurgitation. Tricuspid Valve Mild tricuspid valve regurgitation. Pulmonic Valve Structurally normal pulmonic valve without significant stenosis. There is no pulmonic regurgitation. Pericardium Normal pericardium without effusion. Aorta Normal ascending aorta dimension. IVC Normal inferior vena cava. CONCLUSIONS Left ventricular ejection fraction is estimated at 55%. No regional wall motion abnormalities. Mild left ventricular hypertrophy. Severely increased left atrial volume 43 ml/m squared. Moderately increased right atrial size. [id number] aortic valve regurgitation. Thickened aortic valve. Mild mitral and tricuspid regurgitation There is no pericardial effusion. There are no intracardiac masses. Compared to the study from 09/03/2022 there may not be a significant change Dr Edwige Phan MD [facility] (Electronically Signed) Final Date: 10 September 2023 00:55 S
== END 2023-09-08 10:01 | disposition home or self-care (01) ==
PROVIDERS: PCP Nurse Practitioner Primary Care; Visit Provider Nurse Practitioner Family
DX: I48.19 Other persistent atrial fibrillation (principal); I50.9 Heart failure, unspecified; I35.1 Nonrheumatic aortic (valve) insufficiency; I35.8 Other nonrheumatic aortic valve disorders; I34.0 Nonrheumatic mitral (valve) insufficiency; I07.1 Rheumatic tricuspid insufficiency
CPT/HCPCS: 93306

== ENCOUNTER → 2023-09-10 09:50 | Outpatient (BNVA) | payer MEDICARE, SELFPAY | PROVIDERS: PCP Nurse Practitioner Primary Care; Visit Provider Podiatrist Foot & Ankle Surgery | DX: L60.3 Nail dystrophy (principal); I73.9 Peripheral vascular disease, unspecified; R09.89 Other specified symptoms and signs involving the circulatory and respiratory systems; L84 Corns and callosities | CPT/HCPCS: 11721 ==

== ENCOUNTER → 2023-11-30 10:35 | Outpatient (BNVA) | payer MEDICARE, SELFPAY | PROVIDERS: PCP Nurse Practitioner Primary Care; Visit Provider Podiatrist Foot & Ankle Surgery | DX: L60.3 Nail dystrophy (principal); I73.9 Peripheral vascular disease, unspecified; R09.89 Other specified symptoms and signs involving the circulatory and respiratory systems; L84 Corns and callosities | CPT/HCPCS: 11721 ==

== ENCOUNTER → 2024-02-01 10:16 | Outpatient (BNVA) | payer MEDICARE, SELFPAY | PROVIDERS: PCP Nurse Practitioner Primary Care; Visit Provider Podiatrist Foot & Ankle Surgery | DX: I73.9 Peripheral vascular disease, unspecified (principal); L60.3 Nail dystrophy; R09.89 Other specified symptoms and signs involving the circulatory and respiratory systems; L84 Corns and callosities | CPT/HCPCS: 11056; 11721; 99213 ==

== ENCOUNTER 2024-02-15 11:51 | Outpatient (CLI) | payer MEDICARE, SELFPAY ==
--- NOTE | 2024-02-15 12:30 | CTR_ITS ---
PROCEDURE INFORMATION: Exam: CTA Abdominal Aorta and Bilateral Lower Extremities (Run-off) With Contrast Exam date and time: 02/15/2024 12:39 PM Age: 79 years old Clinical indication: Foot pain; Prior surgery; Surgery date: 6+ months; Surgery type: Hernia; Patient HX: Pad, left big toe pain TECHNIQUE: Imaging protocol: Computed tomographic angiography of the of the abdominal aorta, pelvis and bilateral lower extremities with contrast. 3D rendering (Not supervised by radiologist): MIP and/or 3D reconstructed images were created by the technologist. Radiation optimization: All CT scans at this facility use at least one of these dose optimization techniques: automated exposure control; mA and/or kV adjustment per patient size (includes targeted exams where dose is matched to clinical indication); or iterative reconstruction. Contrast material: OMNIPAQUE 350; Contrast volume: 125 ml; Contrast route: INTRAVENOUS (IV); COMPARISON: 1. CT angio chest w abd pel w con 07/22/2020 3:[address] abdomen pelvis w con* [id number] 02/06/2022 7:00 AM RADIATION DOSE METRICS: Total DLP (mGy-cm): 1339.1 FINDINGS: Aorta: There is moderate aortic atherosclerotic disease. No aortic dissection or aneurysm. Celiac trunk and mesenteric arteries: Celiac, splenic and common hepatic arteries are normal. There is less than 50% stenosis at the origin of the superior mesenteric artery and patent distal branches. Inferior mesenteric artery is patent. Renal arteries: There is less than 50% stenosis at the origin of the right renal artery. There is 60% stenosis of the left renal artery origin. Right iliac arteries: Mild calcific plaque without significant stenosis in the right common and internal iliac arteries. Right femoral/popliteal arteries: Right common femoral artery is normal. Right profunda femoris artery is normal. Right superficial femoral artery is normal. Right popliteal artery is normal. Right infrapopliteal arteries: Right infrapopliteal arteries are normal. There is patent 3 vessel runoff to the right foot. Left iliac arteries: Mild calcific plaque without significant stenosis in the left common and internal iliac arteries. Left femoral/popliteal arteries: Left common femoral artery is normal. Left profunda femoris artery is normal. Left superficial femoral artery is normal. Left popliteal artery is normal. Left infrapopliteal arteries: Left infrapopliteal arteries are normal. There is patent 3 vessel runoff to the left foot. Lungs: There is subsegmental atelectasis in the lung bases. Heart: There is moderate cardiac enlargement. Liver: There are 2 simple cysts in the right lobe of the liver. The larger measures 2.4 cm diameter and is stable since 02/06/2022. The liver parenchyma is otherwise unremarkable. Diaphragm: There is mild asymmetric elevation of the left hemidiaphragm. There is a small sliding-type hiatal hernia. Gallbladder and biliary ducts: There is no intrahepatic or extrahepatic bile duct dilation. Cholelithiasis is present. There is no sign of cholecystitis. Pancreas: The pancreas is unremarkable. Spleen: The spleen is unremarkable. Adrenal glands: The adrenal glands are unremarkable. Kidneys and ureters: Multifocal bilateral renal cortical scarring and small simple cysts. There is a 2 mm nonobstructive stone in the left kidney. No stones on the right. There is no hydronephrosis or ureteral dilation. Stomach and bowel: The stomach is nondistended, limiting assessment of wall thickness. The small bowel is nondilated. The colon is unremarkable. Appendix: The appendix is normal. Urinary bladder: The urinary bladder is nondistended, limiting assessment of wall thickness. Reproductive: There is nonspecific mild enlargement of the prostate gland. Intraperitoneal space: There is no free air or significant intraperitoneal free fluid. Lymph nodes: There is no lymphadenopathy in the retroperitoneum, mesentery, pelvis or inguinal regions. Bones/joints: There is a healed right fibular fracture. There is mild degenerative disease of both hips. There is mild degenerative disease in the lumbar spine. The bony pelvis is intact. Soft tissues: Soft tissues in the lower extremities are unremarkable. There is a small fat containing left inguinal hernia. Intact right inguinal hernia repair. CT/CT angio abd aorta runof [id number] IMPRESSION: 1. No hemodynamically significant arterial stenosis in the pelvis or lower extremities. No atherosclerotic disease beyond the common iliac arteries. 2. 60% stenosis of the left renal artery origin. Less than 50% stenosis of the right renal artery origin. 3. Incidental findings above.
[2024-02-15 12:39] LABS: Blood Urea Nitrogen 24 mg/dL (8-23)
[2024-02-15] MEDS: iohexol 350 mg/mL 500 mL Btl (per mL) IV (12:54)
== END 2024-02-15 11:52 | disposition home or self-care (01) ==
PROVIDERS: PCP Nurse Practitioner Primary Care; Visit Provider Podiatrist Foot & Ankle Surgery
DX: I70.1 Atherosclerosis of renal artery (principal); I51.7 Cardiomegaly; J43.9 Emphysema, unspecified; Q44.6 Cystic disease of liver; K80.20 Calculus of gallbladder without cholecystitis without obstruction; K44.9 Diaphragmatic hernia without obstruction or gangrene
CPT/HCPCS: 75635; 82565; 84520

== ENCOUNTER → 2024-04-25 10:20 | Outpatient (BNVA) | payer MEDICARE, SELFPAY | PROVIDERS: PCP Nurse Practitioner Primary Care; Visit Provider Podiatrist Foot & Ankle Surgery | DX: I73.9 Peripheral vascular disease, unspecified (principal); L60.3 Nail dystrophy; L84 Corns and callosities; R09.89 Other specified symptoms and signs involving the circulatory and respiratory systems; B35.3 Tinea pedis | CPT/HCPCS: 11721; 99213 ==

== ENCOUNTER → 2024-06-06 08:34 | Outpatient (BNVA) | payer MEDICARE, SELFPAY | PROVIDERS: PCP Nurse Practitioner Primary Care; Visit Provider Internal Medicine Cardiovascular Disease | DX: I48.19 Other persistent atrial fibrillation (principal); Z87.898 Personal history of other specified conditions; I11.0 Hypertensive heart disease with heart failure; I50.9 Heart failure, unspecified; Z87.891 Personal history of nicotine dependence; Z79.01 Long term (current) use of anticoagulants; S99.929A Unspecified injury of unspecified foot, initial encounter; X58.XXXA Exposure to other specified factors, initial encounter | CPT/HCPCS: 99214 ==

== ENCOUNTER → 2024-08-03 10:02 | Outpatient (BNVA) | payer MEDICARE, SELFPAY | PROVIDERS: PCP Nurse Practitioner Primary Care; Visit Provider Podiatrist Foot & Ankle Surgery | DX: L60.3 Nail dystrophy (principal); I73.9 Peripheral vascular disease, unspecified; R09.89 Other specified symptoms and signs involving the circulatory and respiratory systems; L84 Corns and callosities; B35.3 Tinea pedis | CPT/HCPCS: 99213 ==

== ENCOUNTER 2024-10-09 06:07 | Emergency (ER) | payer MEDICARE, SELFPAY ==
[2024-10-09] VITALS (8 sets, daily range): BP systolic 119–159; BP diastolic 59–97; PULSE 68–81; RESP 18; TEMP 36.7; O2SAT 96–98; BMI 22.6
--- NOTE | 2024-10-09 06:25 | ECG_ITS ---
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 Measurements Intervals [place] Rate: 71 P: 0 OK: 0 QRS: -59 QRSD: 126 T: 38 QT: 374 QTc: 409 Interpretive Statements ATRIAL FIBRILLATION LEFT ANTERIOR FASCICULAR BLOCK [QRS AXIS <= -45, QR IN I, RS IN II] Compared to ECG 02/06/2022 08:34:06 Left anterior fascicular block now present Ventricular premature complex(es) no longer present Aberrant conduction of supraventricular beat(s) no longer present Left-axis deviation no longer present Intraventricular conduction delay no longer present Electronically Signed On 10-14-2024 09:19:29 CDT by Edwige Phan M.D. [email or web address]
--- NOTE | 2024-10-09 06:25 | XRR_ITS ---
PROCEDURE INFORMATION: Exam: XR Chest Exam date and time: 10/09/2024 6:41 AM Age: 79 years old Clinical indication: Cough and dyspnea; Additional info: Dyspnea/cough TECHNIQUE: Imaging protocol: Radiologic exam of the chest. Views: 1 view. COMPARISON: CR XR chest 1V portable [id number] 02/06/2022 6:22 AM FINDINGS: Lungs: Unremarkable. No consolidation. Pleural spaces: Unremarkable. No pleural effusion. No pneumothorax. Heart/Mediastinum: Unremarkable. No cardiomegaly. Bones/joints: Unremarkable. XR/XR chest 1V portable [id number] IMPRESSION: No acute findings.
--- NOTE | 2024-10-09 06:26 | W.ED.RECABL ---
HPI - Recheck/Abnormal Lab/Rx General: Chief Complaint: Recheck/Abnormal Lab/Rx Stated Complaint: low bp Time Seen by Provider: 10/09/24 06:23 History of Present Illness: 79-year-old male presents emergency room with his concerned about low blood pressure. Patient has a history of atrial fibrillation. He also has a history of aortic regurgitation and heart failure. Known history of coronary artery disease. Patient denies any chest pain or abdominal pain. When his blood pressure was low he had some nausea. He is not having any symptoms now. He also reported that he has been having some increased sweats at night. Blood pressures prior to coming in and were 88/50 286/54. He has been normotensive since arriving here. No recent medication changes no recent illness. Related Data Home Medications ?Medication ?Instructions ?Recorded ?Confirmed cannabidiol 100 mg/mL oral solution 50 - 100 mg PO DAILY PRN Sleep 05/16/19 10/09/24 multivitamin 1 tab PO DAILY 05/16/19 10/09/24 cholecalciferol (vitamin D3) 50 2,000 unit PO DAILY 09/11/19 10/09/24 mcg (2,000 unit) capsule ascorbic acid (vitamin C) 500 mg 2,000 mg PO DAILY 09/27/20 10/09/24 capsule hawthorn 500 mg capsule 500 mg PO DAILY 09/27/20 10/09/24 ginkgo biloba 40 mg tablet 40 mg PO TID 09/29/22 10/09/24 nitroglycerin 0.4 mg sublingual 0.4 mg sublingual Q5M PRN Chest 06/06/24 10/09/24 tablet Pain digoxin 125 mcg (0.125 mg) tablet 125 mcg PO QPM 10/09/24 10/09/24 diltiazem HCl 240 mg 240 mg PO QAM 10/09/24 10/09/24 capsule,extended release 24 hr losartan 25 mg tablet 25 mg PO DAILY 10/09/24 10/09/24 Previous Rx's ?Medication ?Instructions ?Recorded apixaban 5 mg tablet 5 mg PO BID #180 tabs 09/03/23 nitroglycerin 2 % transdermal 1 inch transdermal BID #30 grams 04/25/24 ointment (Nitro-Bid) Allergies Allergy/AdvReac Type Severity Reaction Status Date / Time No Known Allergies Allergy Verified 08/03/24 09:37 Review of Systems Const: Denies: fever(s) or chills Card: Denies: chest pain Resp: Denies: dyspnea GI: Denies: abdominal pain : Denies: dysuria, urinary frequency or urinary urgency Musc: Denies: neck pain or back pain Skin/Breast: Denies: rash PFSH ED PFSH: Medical History Carotid artery disease Aortic regurgitation CHF (congestive heart failure) Atrial fibrillation Surgical History H/O carotid endarterectomy 2008 S/P PTCA (percutaneous transluminal coronary angioplasty) S/P hernia repair Family History Father Hypertension CAD (coronary artery disease) Social History Smoking and tobacco/nicotine status: former use of tobacco/nicotine Alcohol intake: never Substance/Drug Use: never Housing: House Physical Exam Const: COMMON NORMALS: no acute distress GENERAL APPEARANCE: cooperative and comfortable ORIENTATION/CONSCIOUSNESS: Yes awake, Yes oriented to person, Yes oriented to place and Yes oriented to time HENMT: COMMON NORMALS: normocephalic, atraumatic and hearing grossly normal bilaterally HEAD & SCALP: normocephalic and atraumatic Resp: COMMON NORMALS: normal respiratory effort, No retractions, No use of accessory muscles and clear to auscultation bilaterally AUSCULTATION: clear to auscultation bilaterally Cardio: COMMON NORMALS: regular rate, regular rhythm and No murmurs present (Cardio) RATE: regular rate RHYTHM: regular rhythm GI: COMMON NORMALS: Soft to palpation and No hepatosplenomegaly present AUSCULTATION: Yes normoactive bowel sounds PALPATION: Yes Soft to palpation, No Tenderness to palpation present (GI), No Guarding due to palpation present (GI) and Yes No hepatosplenomegaly present Extremity: COMMON NORMALS: normal to inspection, capillary refill normal, no clubbing, cyanosis or edema, no calf tenderness and no pedal edema Neuro: SENSORIUM/ORIENTATION: Yes oriented to person, Yes oriented to place and Yes oriented to time Skin: COMMON NORMALS: no rashes or lesions noted GENERAL SKIN EXAM: no rashes or lesions noted Course Vital Signs: Vital signs: Vital Signs Temperature 98.0 F 10/09/24 06:14 Pulse Rate 68 10/09/24 09:29 Respiratory Rate 18 10/09/24 06:38 Blood Pressure 119/97 10/09/24 09:29 Pulse Oximetry 98 10/09/24 09:29 Oxygen Delivery Me thod Room Air 10/09/24 07:43 MDM - Recheck/Abnormal Lab/Rx Medical Decision Making Normotensive while in the emergency room orthostatics normal with mild concentration of urine slight elevation in BUN given 500 mL normal saline. Orthostatics were unremarkable. Troponins trended negative EKG shows A-fib with good rate control no acute changes. Discharge patient home follow-up with primary care Medical Records I reviewed the patient's medical records. Lab Data I reviewed the patient's lab results. 10/09/24 06:26 10/09/24 06:26 Radiology Impressions Chest X-Ray 10/09/24 06:25 IMPRESSION: No acute findings. Laboratory Results WBC 12.39 10^3/uL (3.29-11.43) H 10/09/24 06:26 RBC 5.37 10^6/uL (3.85-5.65) 10/09/24 06:26 Hgb 15.20 g/dL (11.27-16.99) 10/09/24 06:26 Hct 47.3 % (37-53) 10/09/24 06:26 MCV 88.1 fl (82-101) 10/09/24 06:26 MCH 28.3 pg (27-33) 10/09/24 06:26 MCHC 32.1 g/dL (30-55) 10/09/24 06:26 RDW 14.7 % (12.1-15.1) 10/09/24 06:26 Plt Count 161 10^3/cmm (157-399) 10/09/24 06:26 MPV 12.5 fL (7.4-10.4) H 10/09/24 06:26 Neut % (Auto) 78.8 % 10/09/24 06:26 Lymph % (Auto) 13.2 % 10/09/24 06:26 [place] % (Auto) 6.6 % 10/09/24 06:26 Eos % (Auto) 1.0 % 10/09/24 06:26 Baso % (Auto) 0.2 % 10/09/24 06:26 Neut # (Auto) 9.75 10^3/uL (1.8-7.7) H 10/09/24 06:26 Lymph # (Auto) 1.6 10^3/uL (0.8-4.8) 10/09/24 06:26 [place] # (Auto) 0.8 10^3/uL (0.2-0.9) 10/09/24 06:26 Eos # (Auto) 0.1 10^3/uL (0.0-0.8) 10/09/24 06: Baso # (Auto) 0.0 10^3/uL (0.0-0.1) 10/09/24 06:26 Nucleated RBC % (auto) 0 % 10/09/24 06: Nucleated RBCs # 0.0 /100WBC 10/09/24 06:26 Sodium 139 mmol/L (136-145) 10/09/24 06:26 Potassium 4.5 mmol/L (3.5-5.1) 10/09/24 06:26 Chloride 105 mmol/L (98-107) 10/09/24 06:26 Carbon Dioxide 25 mmol/L (22-29) 10/09/24 06:26 Anion Gap 13.5 (5-19) 10/09/24 06:26 BUN 25 mg/dL (8-23) H 10/09/24 06:26 Creatinine 1.1 mg/dL (0.7-1.2) 10/09/24 06:26 GFR Calculation Not Reportable 10/09/24 06:26 Glucose 101 mg/dL (65-115) 10/09/24 06:26 Calculated Osmolality 293 mOsm/kg (285-295) 10/09/24 06:26 Calcium 9.2 mg/dL (8.5-10.5) 10/09/24 06:26 Total Bilirubin 0.7 mg/dL (0.15-1.2) 10/09/24 06:26 AST 19 U/L (0-40) 10/09/24 06:26 ALT 14 U/L (0-41) 10/09/24 06:26 Alkaline Phosphatase 66 U/L (40-130) 10/09/24 06:26 Troponin T Baseline 16 ng/L (0-15) H 10/09/24 06:26 Troponin T 120 Minute 13.46 ng/L (0-15) 10/09/24 08:18 Delta Troponin T -2.54 ABS# (0-10) L 10/09/24 08:18 Total Protein 7.2 g/dL (6.6-8.7) 10/09/24 06:26 Albumin 4.3 g/dL (3.5-5.2) 10/09/24 06:26 Globulin 2.9 g/dL (1.3-4.6) 10/09/24 06:26 Urine Color Dark yellow (Yellow) A 10/09/24 06:45 Urine Appearance Clear (CLEAR) 10/09/24 06:45 Urine pH 6.5 (5-7) 10/09/24 06:45 Ur Specific [place] 1.023 (1.005-1.030) 10/09/24 06:45 Urine Protein 1+ (Negative) A 10/09/24 06:45 Urine Glucose (UA) Negative (Normal) 10/09/24 06:45 Urine Ketones Trace (Negative) 10/09/24 06:45 Urine Blood Negative (Negative) 10/09/24 06:45 Urine Nitrate Negative (Negative) 10/09/24 06:45 Urine Bilirubin 1+ (Negative) H 10/09/24 06:45 Urine Urobilinogen 1.0 mg/dL (Negative) 10/09/24 06:45 Ur Leukocyte Esterase Trace (Negative) A 10/09/24 06:45 Urine RBC None /hpf (0-2) 10/09/24 06:45 Urine WBC Rare /hpf (0-5) 10/09/24 06:45 Ur Squamous Epith Cells None /hpf (0-5) 10/09/24 06:45 Amorphous Sediment Not Reportable 10/09/24 06:45 Urine Bacteria 1+ /hpf (NONE) H 10/09/24 06:45 Urine Mucus Trace /hpf 10/09/24 06:45 Digoxin 0.8 ng/mL (0.6-1.2) 10/09/24 06:26 All radiology interpretation(s) finalized by discharge EKG Data EKG 1: Interpretation: EKG 10/09/2024 6:34 AM atrial fibrillation with a rate of 71 QTc [address] changes noted. Compared to EKG 02/06/2022 Discharge Plan Discharge Patient Disposition: Home Clinical Impression: Transient hypotension Atrial fibrillation Qualifiers: Atrial fibrillation type: persistent (not longstanding) Qualified Code(s): I48.19 - Other persistent atrial fibrillation Condition: Stable Prescriptions: No Action ginkgo biloba 40 mg tablet 40 mg PO TID Rx Instructions: give with meal/snack multivitamin Tablet 1 tab PO DAILY cannabidiol 100 mg/mL solution 50 - 100 mg PO DAILY PRN (Reason: Sleep) Rx Instructions: takes at hs to assist with sleep hawthorn 500 mg capsule 500 mg PO DAILY cholecalciferol (vitamin D3) 50 mcg (2,000 unit) capsule 2,000 unit PO DAILY ascorbic acid (vitamin C) 500 mg capsule 2,000 mg PO DAILY Nitro-Bid 2 % ointment 1 inch transdermal BID Qty: 30 0RF Rx Instructions: (for feet) nitroglycerin 0.4 mg tablet, sublingual 0.4 mg sublingual Q5M PRN (Reason: Chest Pain) Rx Instructions: do not exceed 3 doses per episode apixaban 5 mg tablet 5 mg PO BID Qty: 180 2RF diltiazem HCl 240 mg capsule,extended release 24hr 240 mg PO QAM losartan 25 mg tablet 25 mg PO DAILY digoxin 125 mcg (0.125 mg) tablet 125 mcg PO QPM Discharge Orders: Discharge ED (Routine); Ordered 10/09/24 Ordered By: Faustino Henderson Referrals: Miladys Alanis FNP [Primary Care Provider, Nurse Practitioner] Discharge Diet: Usual diet Discharge Activity: Resume usual activity Patient Instructions: Opioid Safety, Pain Management, Patient Portal & Richy Instructions Activity Restrictions/Additional Instructions: Thank you for choosing [facility] for your healthcare needs today. It is very important that you follow up as instructed or that you return to the Emergency Department should you have concerns or if your condition changes or worsens in any way. You were seen in the emergency room with complaints of low blood pressure. While in the emergency room your were normotensive to borderline hypertensive. Laboratory test did not show significant abnormality. There is slight concentration of urine you were given a small fluid bolus. Your orthostatic blood pressures and pulses (blood pressure and pulse measured while laying sitting and standing) did not show significant abnormality. Recommend continue current medications and follow-up with your primary care doctor. Cardiac enzymes and EKGs did not show any acute changes. Print Language: Luxembourgish Coding Level of Care Code ED Line Therapist for Nissa Montesinos
[2024-10-09 06:32] LABS: Hematocrit 47.3 % (37-53); Hemoglobin 15.20 g/dL (11.27-16.99); Mean Corpuscular HGB Conc 32.1 g/dL (30-55); Mean Corpuscular Hemoglobin 28.3 pg (27-33); Mean Corpuscular Volume 88.1 fl (82-101); Nucleated Red Blood Cells % 0 %; Platelet Count 161 10^3/cmm (157-399); Red Blood Count 5.37 10^6/uL (3.85-5.65); White Blood Count 12.39 10^3/uL (3.29-11.43)
[2024-10-09 06:54] LABS: Alanine Aminotransferase 14 U/L (0-41); Albumin Level 4.3 g/dL (3.5-5.2); Alkaline Phosphatase 66 U/L (40-130); Aspartate Amino Transferase 19 U/L (0-40); Blood Urea Nitrogen 25 mg/dL (8-23); Calcium 9.2 mg/dL (8.5-10.5); Carbon Dioxide 25 mmol/L (22-29); Chloride 105 mmol/L (98-107); Creatinine Clr Calc Pharmacy 47.4393; Globulin 2.9 g/dL (1.3-4.6); Glucose 101 mg/dL (65-115); Osmolality Calculated 293 mOsm/kg (285-295); Sodium 139 mmol/L (136-145); Total Protein 7.2 g/dL (6.6-8.7)
[2024-10-09 06:58] LABS: Anion Gap 13.5 (5-19); Potassium 4.5 mmol/L (3.5-5.1)
[2024-10-09 07:09] LABS: Digoxin 0.8 ng/mL (0.6-1.2)
[2024-10-09 07:35] LABS: Troponin(5th) Baseline 16 ng/L (0-15)
[2024-10-09 07:40] LABS: Glucose Urine UA Negative (Normal); Nitrate Urine Negative (Negative); Specific Gravity, Urine 1.023 (1.005-1.030)
[2024-10-09 08:16] LABS: Add Urine Microscopic? YES; UA Manual Slide Review YES
[2024-10-09 08:49] LABS: Troponin 5 2HR 13.46 ng/L (0-15)
[2024-10-09 08:52] LABS: Troponin 5 2HR Delta -2.54 ABS# (0-10)
--- NOTE | 2024-10-09 09:15 | ECG_ITS ---
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 Measurements Intervals [place] Rate: 66 P: 0 [place]: 0 QRS: -55 QRSD: 120 T: 20 QT: 387 QTc: 408 Interpretive Statements ATRIAL FIBRILLATION LEFT AXIS DEVIATION [QRS AXIS < -30] POSSIBLE ANTERIOR MYOCARDIAL INFARCTION , OF INDETERMINATE AGE [30 ms Q WAVE IN V3/V4, OR R < 0.2 mV IN V4] Compared to ECG 10/09/2024 06:34:23 Left-axis deviation now present Myocardial infarct finding now present Left anterior fascicular block no longer present Electronically Signed On 10-14-2024 09:51:13 CDT by Mauricio Carrera M.D. [id number]
== END 2024-10-09 09:30 | disposition home or self-care (01) ==
PROVIDERS: Emergency Provider Family Medicine; PCP Nurse Practitioner Primary Care
DX: I95.89 Other hypotension (principal); I48.19 Other persistent atrial fibrillation; Z87.891 Personal history of nicotine dependence; I25.10 Atherosclerotic heart disease of native coronary artery without angina pectoris; I50.9 Heart failure, unspecified
CPT/HCPCS: 36415; 71045; 80053; 80162; 81001; 84484; 85025; 93005; 99285; J7040

== ENCOUNTER 2024-12-30 11:33 | Emergency (ER) | payer MEDICARE, SELFPAY ==
[2024-12-30 11:38] VITALS: BP 165/72; PULSE 57; RESP 19; TEMP 36.3; O2SAT 97; BMI 22.6
--- NOTE | 2024-12-30 11:41 | ECG_ITS ---
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 Measurements Intervals [place] Rate: 59 P: 0 AL: 0 QRS: 102 QRSD: 134 T: -63 QT: 404 QTc: 403 Interpretive Statements Atrial fibrillation with controlled ventricular response, aberrant ventricular conduction RIGHT AXIS DEVIATION [QRS AXIS > 100] INTRAVENTRICULAR CONDUCTION DELAY [130+ ms QRS DURATION] SEPTAL MYOCARDIAL INFARCTION , OF INDETERMINATE AGE [40+ ms Q WAVE IN V1/V2] Compared to ECG 10/09/2024 09:15:42 Right-axis deviation now present Intraventricular conduction delay now present Atrial fibrillation no longer present Left-axis deviation no longer present Myocardial infarct finding still present Electronically Signed On 12-30-2024 13:03:40 ESL PROFESSOR by Edwige Phan M.D. [id number]
--- NOTE | 2024-12-30 13:05 | ECG_ITS ---
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1945 Requested By: Mike Matamoros Order Number: [id number] Poppy MD: DARRYL AMBROSIO Measurements Intervals [place] Rate: 52 P: 0 [place]: 0 QRS: -55 QRSD: 125 T: 13 QT: 379 QTc: 354 Interpretive Statements ATRIAL FIBRILLATION WITH SLOW VENTRICULAR RESPONSE WITH ABERRANT CONDUCTION OR VENTRICULAR PREMATURE COMPLEXES LEFT AXIS DEVIATION [QRS AXIS < -30] POSSIBLE RIGHT VENTRICULAR CONDUCTION DELAY [RSR (QR) IN V1/V2] MODERATE VOLTAGE CRITERIA FOR LVH, CONSIDER NORMAL VARIANT [MEETS CRITERIA IN ONE OF: R(aVL), S(V1), R(V5), R(V5/V6)+S(V1)] NONSPECIFIC T-WAVE ABNORMALITY Compared to ECG 12/30/2024 11:41:01 Ventricular premature complex(es) now present Aberrant conduction of supraventricular beat(s) now present Left-axis deviation now present Electronically Signed On 12-30-2024 16:07:16 CLINICAL LAB CLERK by DARRYL AMBROSIO [id number]
--- NOTE | 2024-12-30 13:05 | XRR_ITS ---
PROCEDURE INFORMATION: Exam: XR Chest Exam date and time: 12/30/2024 1:12 PM Age: 79 years old Clinical indication: Other: Palpitations; Additional info: Palpitations, arrhythmia TECHNIQUE: Imaging protocol: Radiologic exam of the chest. Views: 1 view. COMPARISON: CR XR chest 1V portable [id number] 10/09/2024 6:41 AM FINDINGS: Lungs: Unremarkable. No consolidation. Pleural spaces: Unremarkable. No pleural effusion. No pneumothorax. Heart/Mediastinum: The heart is enlarged. Vasculature: There are aortic arch calcifications. There is unfolding of the thoracic aorta. Bones/joints: Mild degenerative disease of bilateral acromioclavicular joints. Demineralization of the visualized bones, limiting sensitivity for nondisplaced fractures. XR/XR chest 1V portable [id number] IMPRESSION: 1. Cardiomegaly. 2. No acute cardiopulmonary process.
[2024-12-30 13:11] LABS: Hematocrit 45.6 % (37-53); Hemoglobin 14.80 g/dL (11.27-16.99); Mean Corpuscular HGB Conc 32.5 g/dL (30-55); Mean Corpuscular Hemoglobin 28.8 pg (27-33); Mean Corpuscular Volume 88.9 fl (82-101); Nucleated Red Blood Cells % 0 %; Platelet Count 178 10^3/cmm (157-399); Red Blood Count 5.13 10^6/uL (3.85-5.65); White Blood Count 7.01 10^3/uL (3.29-11.43)
[2024-12-30 13:37] LABS: Anion Gap 15.5 (5-19); Blood Urea Nitrogen 19 mg/dL (8-23); Calcium 9.2 mg/dL (8.5-10.5); Carbon Dioxide 25 mmol/L (22-29); Chloride 106 mmol/L (98-107); Creatinine Clr Calc Pharmacy 52.1832; Free T4 Free Thyroxine 1.15 ng/dL (0.82-1.77); Glucose 89 mg/dL (65-115); Magnesium 2.2 mg/dL (1.7-2.3); NT Pro B Type Natriuretic Pept 608 pg/mL (0-450); Osmolality Calculated 296 mOsm/kg (285-295); Potassium 4.5 mmol/L (3.5-5.1); Sodium 142 mmol/L (136-145); Thyroid Stimulating Hormone 1.29 uIU/mL (0.27-4.20)
[2024-12-30 14:08] VITALS: BP 166/86; PULSE 56; O2SAT 99
--- NOTE | 2024-12-30 14:12 | W.ED.ARRPALP ---
HPI - Arrhythmia/Palpitations General: Chief Complaint: Arrhythmia/Palpitations Stated Complaint: heart flutter / bp Time Seen by Provider: 12/30/24 11:49 History of Present Illness: 79-year-old male past medical history significant for hypertension, CVA, A-fib on diltiazem and Eliquis, CAD, presenting to the emergency department with intermittent palpitations and skipped heartbeats, reports he took an extra 120 mg of his diltiazem today he is usually on 240 mg daily but was told by his wireless cellular technician he can take extra doses if he feels his heart rate is regular. He denies any lightheadedness or chest pain Related Data Home Medications ?Medication ?Instructions ?Recorded ?Confirmed cannabidiol 100 mg/mL oral solution 50 - 100 mg PO DAILY PRN Sleep 05/16/19 10/09/24 multivitamin 1 tab PO DAILY 05/16/19 10/09/24 cholecalciferol (vitamin D3) 50 2,000 unit PO DAILY 09/11/19 10/09/24 mcg (2,000 unit) capsule ascorbic acid (vitamin C) 500 mg 2,000 mg PO DAILY 09/27/20 10/09/24 capsule hawthorn 500 mg capsule 500 mg PO DAILY 09/27/20 10/09/24 ginkgo biloba 40 mg tablet 40 mg PO TID 09/29/22 10/09/24 nitroglycerin 0.4 mg sublingual 0.4 mg sublingual Q5M PRN Chest 06/06/24 10/09/24 tablet Pain losartan 25 mg tablet 25 mg PO DAILY 10/09/24 10/09/24 Previous Rx's ?Medication ?Instructions ?Recorded nitroglycerin 2 % transdermal 1 inch transdermal BID #30 grams 04/25/24 ointment (Nitro-Bid) digoxin 125 mcg (0.125 mg) tablet See Rx Instructions .Route 11/06/24 .COMPLEX #90 tabs diltiazem HCl 240 mg See Rx Instructions .Route 11/06/24 capsule,extended release 24 hr .COMPLEX #90 caps apixaban 5 mg tablet 5 mg PO BID #180 tabs 11/23/24 Allergies Allergy/AdvReac Type Severity Reaction Status Date / Time No Known Allergies Allergy Verified 12/30/24 11:44 [facility] ED PFSH: Medical History Carotid artery disease Aortic regurgitation CHF (congestive heart failure) Atrial fibrillation Surgical History H/O carotid endarterectomy 2008 S/P PTCA (percutaneous transluminal coronary angioplasty) S/P hernia repair Family History Father Hypertension CAD (coronary artery disease) Social History Smoking and tobacco/nicotine status: former use of tobacco/nicotine Alcohol intake: never Substance/Drug Use: never Housing: House Physical Exam Narrative: EXAM NARRATIVE: Gen: A&Ox4, no acute distress, nontoxic appearing HEENT: Normocephalic, atraumatic, no scleral icterus, external ears normal, moist mucous membranes Neck: Supple, full range of motion, no observable masses Lungs: No Respiratory distress, Lungs clear to auscultation bilaterally no rales, rhonchi, wheezing CV: Mildly bradycardic in the mid 50s, regular rhythm, no murmur, no pitting edema to lower extremities bilaterally Abdomen: Soft, nondistended, nontender to palpation MSK: No joint swelling, FROM all 4 extremities Skin: No rashes, petechiae, lesions. Normal color per patient. Neuro: Alert and oriented, no slurred speech, sensation and strength grossly intact all 4 extremities Psych: Appropriate for situation. Course Vital Signs: Vital signs: Vital Signs Temperature 97.4 F L 12/30/24 11:38 Pulse Rate 56 L 12/30/24 14:08 Respiratory Rate 19 H 12/30/24 11:38 Blood Pressure 166/86 12/30/24 14:08 Pulse Oximetry 99 12/30/24 14:08 Oxygen Delivery Me thod Room Air 12/30/24 14:08 MDM - Arrhythmia/Palpitations Medical Decision Making 79-year-old male history hypertension CVA and atrial fibrillation presenting the emergency department with palpitation at home, took additional dose of diltiazem, currently in a rate controlled mildly slow A-fib rate of 50s with high normal blood pressure and good peripheral perfusion, currently asymptomatic while in the ED, blood work showing no significant electrolyte derangements or RUI, patient already on goal-directed medical therapy for atrial fibrillation, would recommend only using additional dose of diltiazem if patient feels palpitations and checks heart rate to be above 120 or 130, recommend outpatient follow-up with Dr. Raya will have case management assist with arranging for expedited outpatient follow-up. Lab Data Labs showing normal TSH and free T4, mildly elevated proBNP with negative chest x-ray for pulmonary edema, magnesium normal, creatinine normal, potassium normal, no RUI or leukocytosis or anemia 12/30/24 11:50 12/30/24 11:50 Radiology Impressions Chest X-Ray 12/30/24 13:05 IMPRESSION: 1. Cardiomegaly. 2. No acute cardiopulmonary process. Laboratory Results WBC 7.01 10^3/uL (3.29-11.43) 12/30/24 11:50 RBC 5.13 10^6/uL (3.85-5.65) 12/30/24 11:50 Hgb 14.80 g/dL (11.27-16.99) 12/30/24 11:50 Hct 45.6 % (37-53) 12/30/24 11:50 MCV 88.9 fl (82-101) 12/30/24 11:50 MCH 28.8 pg (27-33) 12/30/24 11:50 MCHC 32.5 g/dL (30-55) 12/30/24 11:50 RDW 14.4 % (12.1-15.1) 12/30/24 11:50 Plt Count 178 10^3/cmm (157-399) 12/30/24 11:50 MPV 12.2 fL (7.4-10.4) H 12/30/24 11:50 Neut % (Auto) 56.8 % 12/30/24 11:50 Lymph % (Auto) 30.4 % 12/30/24 11:50 [place] % (Auto) 11.0 % 12/30/24 11:50 Eos % (Auto) 1.4 % 12/30/24 11:50 Baso % (Auto) 0.3 % 12/30/24 11:50 Neut # (Auto) 3.98 10^3/uL (1.8-7.7) 12/30/24 11:50 Lymph # (Auto) 2.1 10^3/uL (0.8-4.8) 12/30/24 11:50 Harper # (Auto) 0.8 10^3/uL (0.2-0.9) 12/30/24 11:50 Eos # (Auto) 0.1 10^3/uL (0.0-0.8) 12/30/24 11:50 Baso # (Auto) 0.0 10^3/uL (0.0-0.1) 12/30/24 11:50 Nucleated RBC % (auto) 0 % 12/30/24 11:50 Nucleated RBCs # 0.0 /100WBC 12/30/24 11:50 Sodium 142 mmol/L (136-145) 12/30/24 11:50 Potassium 4.5 mmol/L (3.5-5.1) 12/30/24 11:50 Chloride 106 mmol/L (98-107) 12/30/24 11:50 Carbon Dioxide 25 mmol/L (22-29) 12/30/24 11:50 Anion Gap 15.5 (5-19) 12/30/24 11:50 BUN 19 mg/dL (8-23) 12/30/24 11:50 Creatinine 1.0 mg/dL (0.7-1.2) 12/30/24 11:50 GFR Calculation Not Reportable 12/30/24 11:50 Glucose 89 mg/dL (65-115) 12/30/24 11:50 Calculated Osmolality 296 mOsm/kg (285-295) H 12/30/24 11:50 Calcium 9.2 mg/dL (8.5-10.5) 12/30/24 11:50 Magnesium 2.2 mg/dL (1.7-2.3) 12/30/24 11:50 NT-Pro-B Natriuret Pep 608 pg/mL (0-450) H 12/30/24 11:50 TSH 1.29 uIU/mL (0.27-4.20) 12/30/24 11:50 Free T4 1.15 ng/dL (0.82-1.77) 12/30/24 11:50 All radiology interpretation(s) finalized by discharge ED provider radiology interpretation(s): Chest x-ray showing stable cardiomegaly with no acute pulmonary edema EKG Data EKG 1: I personally reviewed and interpreted this EKG as follows: EKG interpretation date: 12/30/24 EKG interpretation time: 11:41 Interpretation: Slow atrial fibrillation at 59 bpm with ectopic PVCs noted, no STEMI, QTc 404 ms Other EKG comments: Chest X-Ray 12/30/24 13:05 IMPRESSION: 1. Cardiomegaly. 2. No acute cardiopulmonary process. EKG 2: I personally reviewed and interpreted this EKG as follows: EKG interpretation date: 12/30/24 EKG interpretation time: 13:13 Prior EKG tracings: available for review Interpretation: Atrial fibrillation with slow response at 52 bpm with additional PVCs, left axis deviation, no STEMI, QTc 359 ms Other EKG comments: Chest X-Ray 12/30/24 13:05 IMPRESSION: 1. Cardiomegaly. 2. No acute cardiopulmonary process. Discharge Plan Discharge Patient Disposition: Home Clinical Impression: Palpitations Atrial fibrillation Qualifiers: Atrial fibrillation type: persistent (not longstanding) Qualified Code(s): I48.19 - Other persistent atrial fibrillation Condition: Stable Prescriptions: No Action ginkgo biloba 40 mg tablet 40 mg PO TID Rx Instructions: give with meal/snack multivitamin Tablet 1 tab PO DAILY cannabidiol 100 mg/mL solution 50 - 100 mg PO DAILY PRN (Reason: Sleep) Rx Instructions: takes at hs to assist with sleep hawthorn 500 mg capsule 500 mg PO DAILY cholecalciferol (vitamin D3) 50 mcg (2,000 unit) capsule 2,000 unit PO DAILY ascorbic acid (vitamin C) 500 mg capsule 2,000 mg PO DAILY Nitro-Bid 2 % ointment 1 inch transdermal BID Qty: 30 0RF Rx Instructions: (for feet) nitroglycerin 0.4 mg tablet, sublingual 0.4 mg sublingual Q5M PRN (Reason: Chest Pain) Rx Instructions: do not exceed 3 doses per episode digoxin 125 mcg (0.125 mg) tablet See Rx Instructions .ROUTE .COMPLEX Qty: 90 0RF Dose Instruction: TAKE 1 TABLET BY MOUTH DAILY Rx Instructions: TAKE 1 TABLET BY MOUTH DAILY diltiazem HCl 240 mg capsule,extended release 24hr See Rx Instructions .ROUTE .COMPLEX Qty: 90 0RF Dose Instruction: TAKE 1 CAPSULE BY MOUTH DAILY Rx Instructions: TAKE 1 CAPSULE BY MOUTH DAILY apixaban 5 mg tablet 5 mg PO BID Qty: 180 3RF losartan 25 mg tablet 25 mg PO DAILY Discharge Orders: Discharge ED (Routine); Ordered 12/30/24 Ordered By: Mike Matamoros Referrals: Miladys Alanis FNP [Primary Care Provider, Nurse Practitioner] Eden Costa MD [Physician, Cardiology] - 7-10 days Patient Instructions: Patient Portal & Richy Instructions, A-fib (Atrial Fibrillation) (ED) Activity Restrictions/Additional Instructions: You were seen for palpitations and changing heart rates. Your workup showed that you are in atrial fibrillation but are currently on the correct medications for this condition. I recommend that you only take the additional dose of diltiazem if you feel lightheaded or palpitations and check your heart rate and it is above 120 bpm. I recommend you come back to the ER if you experience lightheadedness leading to the sensation of being almost passing out or actually passing out, if you develop chest pain, or any other concerns. I have referred you to our case management team to help arrange for expedited outpatient follow-up with your wireless cellular technician Print Language: French Coding Level of Care Code ED Glass Cutter Helper for Nissa Montesinos
[2024-12-30 14:33] VITALS: BP 166/86; PULSE 66; O2SAT 99
== END 2024-12-30 14:34 | disposition home or self-care (01) ==
PROVIDERS: Emergency Provider Student in an Organized Health Care Education/Training Program; PCP Nurse Practitioner Primary Care
DX: R00.2 Palpitations (principal); I48.19 Other persistent atrial fibrillation; Z87.891 Personal history of nicotine dependence; I25.10 Atherosclerotic heart disease of native coronary artery without angina pectoris; I50.9 Heart failure, unspecified
CPT/HCPCS: 36415; 71045; 80048; 83735; 83880; 84439; 84443; 85025; 93005; 99285; J7030

== ENCOUNTER → 2025-01-30 13:04 | Outpatient (BNVA) | payer MEDICARE, SELFPAY | PROVIDERS: PCP Nurse Practitioner Primary Care; Visit Provider Nurse Practitioner Family | DX: I48.20 Chronic atrial fibrillation, unspecified (principal); Z51.89 Encounter for other specified aftercare; I35.1 Nonrheumatic aortic (valve) insufficiency; I11.0 Hypertensive heart disease with heart failure; I50.9 Heart failure, unspecified; Z87.891 Personal history of nicotine dependence; Z79.01 Long term (current) use of anticoagulants | CPT/HCPCS: 99214 ==

== ENCOUNTER → 2025-02-01 10:32 | Outpatient (BNVA) | payer MEDICARE, SELFPAY | PROVIDERS: PCP Nurse Practitioner Primary Care; Visit Provider Podiatrist Foot & Ankle Surgery | DX: I73.9 Peripheral vascular disease, unspecified (principal); L60.3 Nail dystrophy; L84 Corns and callosities; L60.8 Other nail disorders; R09.89 Other specified symptoms and signs involving the circulatory and respiratory systems; B35.3 Tinea pedis | CPT/HCPCS: 11056; 11721 ==